=== PATIENT | male | born 1980 | race Hispanic/Latino ===

== ENCOUNTER 2021-10-20 09:45 | Emergency (ER) | payer SELFPAY ==
[2021-10-20] MEDS ORDERED: oxyCODONE /ACETAMINOPHEN 5-325MG TAB PO ONE (10:03)
--- NOTE | 2021-10-20 10:04 | Emergency Department Report ---
ED General Adult HPI - General Chief complaint: Skin/Abscess/Foreign Body Stated complaint: PT HAS PAINFUL RASH ON HANDS AND FEET PUI?: No Time Seen by Provider: 10/20/21 10:02 Source: patient, RN notes reviewed Mode of arrival: Ambulatory Limitations: No Limitations - History of Present Illness Initial comments: The patient was evaluated in the emergency department for symptoms described in the history of present illness. He/she was evaluated in the context of the global COVID-19 pandemic, which necessitated consideration that the patient might be at risk for infection with the virus that causes COVID-19. Institutional protocols and algorithms that pertain to the evaluation of patients at risk for COVID-19 are in a state of rapid change based on information released by regulatory bodies including the CDC and federal and state organizations. These policies and algorithms were followed during the patient's care in the emergency department. Please note that these policies, procedures and recommendations changed on a rapid basis. The patient is a 41-year-old gentleman, who reports that he is up-to-date with his tetanus vaccination status, who presents to the ER today with subacute painful lesions on his fingertips and toes. He reports that he was exposed to the extreme cold in mid August, secondary to being homeless. He presents to the ER today with a primary complaint of some pain, and discoloration to his fingertips, and toes. Denies headache, neck pain, chest pain, abdominal pain, shortness of breath, nausea, vomiting diarrhea, fevers and chills. He endorses some discomfort on his left fifth toe, right fourth toe, bilateral thumbs and fingertips. He felt improved with pain medication here in the emergency room. -: Gradual, week(s), month(s) Location: left, right, upper extremity, lower extremity Radiation: non-radiation Quality: aching Consistency: constant Improves with: medication Worsens with: movement Associated Symptoms: denies other symptoms - Related Data Previous Rx's Medication Instructions Recorded Last Taken Type Acetaminophen [Non-Aspirin Extra 500 mg PO Q6HR PRN #30 tablet 10/20/21 Unknown Rx Strength] Ferrous Sulfate [Ferrous Sulfate 324 mg PO BID #60 tab 10/20/21 Unknown Rx 324 MG] Ibuprofen [Motrin] 600 mg PO Q8H PRN #30 tablet 10/20/21 Unknown Rx Morphine Sulfate [Morphine Sulfate 7.5 mg PO Q6HR PRN #10 tablet 10/20/21 Unknown Rx IR] Allergies Allergy/AdvReac Type Severity Reaction Status Date / Time No Known Allergies Allergy Verified 10/20/21 09:57 ED Review of Systems ROS: Stated complaint: PT HAS PAINFUL RASH ON HANDS AND FEET Other details as noted in HPI Comment: All other systems reviewed and negative Musculoskeletal: arthralgia, myalgia Skin: lesions, change in color ED Past Medical Hx - Past Medical History Previous Medical History?: No - Surgical History Past Surgical History?: No - Medications Home Medications: Home Medications Medication Instructions Recorded Confirmed Last Taken Type Acetaminophen [Non-Aspirin Extra 500 mg PO Q6HR PRN #30 tablet 10/20/21 Unknown Rx Strength] Ferrous Sulfate [Ferrous Sulfate 324 mg PO BID #60 tab 10/20/21 Unknown Rx 324 MG] Ibuprofen [Motrin] 600 mg PO Q8H PRN #30 tablet 10/20/21 Unknown Rx Morphine Sulfate [Morphine Sulfate 7.5 mg PO Q6HR PRN #10 tablet 10/20/21 Unknown Rx IR] ED Physical Exam - General Limitations: No Limitations General appearance: alert, in no apparent distress - Head Head exam: Present: atraumatic, normocephalic - Eye Eye exam: Present: normal appearance, EOMI. Absent: nystagmus - ENT ENT exam: Present: normal exam, normal orophraynx, mucous membranes moist, normal external ear exam - Neck Neck exam: Present: normal inspection, full ROM. Absent: tenderness, meningismus - Respiratory Respiratory exam: Present: normal lung sounds bilaterally. Absent: respiratory distress, wheezes, rales, rhonchi, stridor, decreased breath sounds - Cardiovascular Cardiovascular Exam: Present: regular rate, normal rhythm, normal heart sounds. Absent: bradycardia, tachycardia, irregular rhythm, systolic murmur, diastolic murmur, rubs, gallop - GI/Abdominal GI/Abdominal exam: Present: soft. Absent: distended, tenderness, guarding, rebound, rigid, pulsatile mass - Rectal Rectal exam: Present: deferred - Extremities Exam Extremities exam: Present: full ROM, other (2+ pulses noted in the bilateral upper and lower extremities. There is no palpable cord. negative Homans sign. Muscular compartments are soft. The pelvis is stable.). Absent: normal inspection (There is dry gangrene on the right fourth toe. There is dry gangrene on the left fifth toe. There is reactive hyperemia on the right fourth toe. Capillary refill 2 to 3 seconds bilateral upper and lower extremities.), pedal edema, calf tenderness - Back Exam Back exam: Present: normal inspection. Absent: tenderness, CVA tenderness (R), CVA tenderness (L), paraspinal tenderness, vertebral tenderness - Neurological Exam Neurological exam: Present: alert, oriented X3, other (No facial droop. Tongue midline. Extraocular movements intact bilaterally. Facial sensation intact to light touch in V1, V2, V3 distribution bilaterally. 5 and a 5 strength in 4 extremities. Sensation intact to light touch in 4 extremities.). Absent: motor sensory deficit - Psychiatric Psychiatric exam: Present: normal affect, normal mood - Skin Skin exam: Present: warm, other (There is dry gangrene noted to the right great toe, and left fifth toe. Chronic appearing wounds noted to the upper extremity tips.) ED Course Vital Signs 10/20/21 10:01 Temperature 98.0 F Pulse Rate 94 H Respiratory 20 Rate Blood Pressure 147/98 O2 Sat by Pulse 100 Oximetry ED Medical Decision Making - Lab Data Result diagrams: 10/20/21 10:57 10/20/21 10:53 Vital Signs 10/20/21 10:01 Temperature 98.0 F Pulse Rate 94 H Respiratory 20 Rate Blood Pressure 147/98 O2 Sat by Pulse 100 Oximetry Lab Results 10/20/21 10/20/21 Range/Units 10:53 10:57 WBC 7.1 (4.5-11.0) K/mm3 RBC 3.80 (3.65-5.03) M/mm3 Hgb 9.2 L (11.8-15.2) gm/dl Hct 28.4 L (35.5-45.6) % MCV 75 L (84-94) fl MCH 24 L (28-32) pg MCHC 33 (32-34) % RDW 19.4 H (13.2-15.2) % Plt Count 444 H (140-440) K/mm3 Andrews % (Auto) Firepot Operator And Tender Add Manual Diff Complete Total Counted 100 Seg Neuts % (Manual) 69.0 (40.0-70.0) % Band Neutrophils % 1.0 % Lymphocytes % (Manual) 12.0 L (13.4-35.0) % Reactive Lymphs % (Man) 0 % Monocytes % (Manual) 16.0 H (0.0-7.3) % Eosinophils % (Manual) 1.0 (0.0-4.3) % Basophils % (Manual) 1.0 (0.0-1.8) % Metamyelocytes % 0 % Myelocytes % 0 % Promyelocytes % 0 % Blast Cells % 0 % Nucleated RBC % Not Reportable Seg Neutrophils # Man 4.9 (1.8-7.7) K/mm3 Band Neutrophils # 0.1 K/mm3 Lymphocytes # (Manual) 0.9 L (1.2-5.4) K/mm3 Abs React Lymphs (Man) 0.0 K/mm3 Monocytes # (Manual) 1.1 H (0.0-0.8) K/mm3 Eosinophils # (Manual) 0.1 (0.0-0.4) K/mm3 Basophils # (Manual) 0.1 (0.0-0.1) K/mm3 Metamyelocytes # 0.0 K/mm3 Myelocytes # 0.0 K/mm3 Promyelocytes # 0.0 K/mm3 Blast Cells # 0.0 K/mm3 WBC Morphology Not Reportable Hypersegmented Neuts Not Reportable Hyposegmented Neuts Not Reportable Hypogranular Neuts Not Reportable Smudge Cells Not Reportable Toxic Granulation Not Reportable Toxic Vacuolation Not Reportable Dohle Bodies Not Reportable Pelger-Huet Anomaly Not Reportable Anna Rods Not Reportable Platelet Estimate Consistent w auto Clumped Platelets Not Reportable Plt Clumps, EDTA Not Reportable Large Platelets Not Reportable Giant Platelets Not Reportable Platelet Satelliting Not Reportable Plt Morphology Comment Not Reportable RBC Morphology Not Reportable Dimorphic RBCs Not Reportable Polychromasia Not Reportable Hypochromasia 2+ Poikilocytosis Not Reportable Anisocytosis 1+ Microcytosis Not Reportable Macrocytosis Not Reportable Spherocytes Not Reportable Pappenheimer Bodies Not Reportable Sickle Cells Not Reportable Target Cells Not Reportable Tear Drop Cells Not Reportable Ovalocytes Not Reportable Helmet Cells Not Reportable [place] Bodies Not Reportable Wilmer Rings Not Reportable Girard Cells Not Reportable Bite Cells Not Reportable Crenated Cell Not Reportable Elliptocytes Not Reportable Acanthocytes (Spur) Not Reportable Rouleaux Not Reportable Hemoglobin C Crystals Not Reportable Schistocytes Not Reportable Malaria parasites Not Reportable ESR 39 (0-20) mm/Hr Navneet Bodies Not Reportable Hem Pathologist Commnt No Sodium 139 (137-145) mmol/L Potassium 4.5 (3.6-5.0) mmol/L Chloride 100.7 (98-107) mmol/L Carbon Dioxide 25 (22-30) mmol/L Anion Gap 18 mmol/L BUN 15 (9-20) mg/dL Creatinine 0.7 L (0.8-1.3) mg/dL Estimated GFR > 60 ml/min BUN/Creatinine Ratio 21 % Glucose 155 H (75-100) mg/dL Calcium 9.0 (8.4-10.2) mg/dL Total Creatine Kinase 101 (55-170) units/L C-Reactive Protein 0.10 (0.00-1.30) mg/dL - Radiology Data Radiology results: pending, report reviewed, image reviewed BILATERAL FEET 2 VIEWS INDICATION: toe pain from chacon related injury. COMPARISON: None. IMPRESSION: No osseous abnormality or joint pathology is appreciated. The soft tissues are unremarkable. BILATERAL HANDS 3 VIEWS INDICATION: Bilateral finger pain from prostate exposure. COMPARISON: None. 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 The chronicity of these findings is unclear but is thought to be chronic. No definite acute osseous findings are appreciated. No erosive joint pathology. Soft tissue swelling of the distal fingers with possible mild blister formation is suggested. Please correlate with the patient. Signer Name: Williams Mars Jr, MD Signed: 10/20/2021 10:28 AM Workstation Name: [id number] - Medical Decision Making Differential diagnosis, including but not limited to: Dry gangrene, subacute/chronic frostbite injury Assessment and plan: 41-year-old gentleman, presenting with crush related injury, exposure in August, and it is currently October. He has brisk robust pulses in his upper and lower extremities, dry gangrene without evidence of superinfection at this time. At the moment, he is eating a sandwich on his stretcher, and he does not appear to be in any acute distress. Laboratory studies are reviewed and appreciated, they are nonactionable, with the exception of asymptomatic microcytic anemia Patient denies hematemesis and bright red blood per rectum. I contacted our general surgeon on-call, Dr. Cole. I discussed the patient's history, physical and clinical impression. She advises that she does not perform amputations, and advises consultation with Dr. Canela, who is our wound care surgeon/specialist who deals with this particular kind of scenario. Contacted Dr. Canela, and I discussed the patient's history, physical, laboratory studies and imaging studies and clinical impression. These are wounds that are almost 2 months old. They do not appear to be superinfected, and there is dry gangrene, without a wet gangrene components. The patient is furthermore up-to-date with tetanus vaccination. Dr. Canela advises that this patient may follow-up in the wound care clinic with him on Wednesday, which I think is reasonable. Antibiotics are also not recommended at this time, which I think is reasonable, if the patient does not appear to have evidence of superinfection. The patient is currently eating food on his stretcher, he does not appear to be in any acute distress. He will be discharged with as needed pain medication, Betadine, instructions to closely follow-up with outpatient wound care/Dr. Canela. Return precautions reviewed. Start iron sulfate for microcytic anemia Critical care attestation.: If time is entered above; I have spent that time in minutes in the direct care of this critically ill patient, excluding procedure time. ED Disposition Clinical Impression: Hx of frostbite, Finger pain, Toe pain, Wound of foot, Microcytic anemia Disposition: HOME / SELF CARE / HOMELESS Is pt being admited?: No Does the pt Need Aspirin: No Condition: Good Instructions: Preventing Iron Deficiency Anemia, Adult, Frostbite, [id number], Gangrene Additional Instructions: Please take the pain medications as needed and directed. If taking morphine sulfate for pain, do not drive, consume alcohol, or make important decisions. Patient is found to have evidence of dry gangrene, likely secondary to environmental cold exposure from August. Recommend that patient follow-up with general surgeon Dr. Canela/wound care center within the next 48 to 72 hours. Name, phone number and address have been attached for the patient's convenience. Laboratory studies demonstrate microcytic anemia. Iron sulfate supplementation as directed, consume plenty of fiber, vegetables, lean protein, and follow-up with your primary care doctor, such as Dr Newman, or the [facility] within the next 3 to 4 weeks for repeat checkup and evaluation. Please return to the emergency room right away with new pain, worsened pain, migration of pain, projectile vomiting, change in mental status, confusion, inability tolerate liquid feeds, new, worsened or different symptoms not present on the initial emergency room evaluation Please have your primary care doctor or general surgeon contact the medical records department to obtain copies of laboratory studies and radiology studies, to follow-up on nonemergent incidental abnormal findings. Referrals: JT CANELA MD [Staff Physician] - 3-5 Days GERRY JACOBS [Staff Physician] - 3-5 Days [facility] [Outside] - 3-5 Days [facility] [Provider Group] - 3-5 Days
[2021-10-20 11:11] LABS: Hematocrit 28.4 % (35.5-45.6); Hemoglobin 9.2 gm/dl (11.8-15.2); Mean Corpuscular HGB Conc 33 % (32-34); Mean Corpuscular Volume 75 fl (84-94); Platelet Count 444 K/mm3 (140-440); Red Cell Distribution Width 19.4 % (13.2-15.2)
[2021-10-20 11:32] LABS: Blood Urea Nitrogen 15 mg/dL (9-20); Hemolysis Index 4
[2021-10-20 11:32] LABS: Erythrocyte Sedimentation Rate 39 mm/Hr (0-20)
--- NOTE | 2021-10-20 11:32 | XRay Report ---
BILATERAL FEET 2 VIEWS INDICATION: toe pain from chacon related injury. COMPARISON: None. IMPRESSION: No osseous abnormality or joint pathology is appreciated. The soft tissues are unremark able. BILATERAL HANDS 3 VIEWS INDICATION: Bilateral finger pain from prostate exposure. COMPARISON: None. 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 The chronicity of these findings is unclear but is th ought to be chronic. No definite acute osseous findings are appreciated. No erosive joint pathology. Soft tissue swelling of the distal fingers with possible mild blister formation is suggested. Please correlate with the patient. Signer Name: Williams Mars Jr, MD Signed: 10/20/2021 11:28 AM Workstation Name: [id number]
[2021-10-20 11:33] LABS: BUN/Creatinine Ratio 21
[2021-10-20 11:53] LABS: Band Neutrophils # (Manual) 0.1 K/mm3; Total Cells Counted 100
[2021-10-20 11:57] LABS: Anisocytosis 1+; Hypochromasia 2+; Platelet Estimate Consistent w Auto
[2021-10-20 12:56] VITALS: BP 167/103
== END 2021-10-20 12:59 | disposition home or self-care (01) ==
LOC: ED 09:45
DX: M79.646 Pain in unspecified finger(s) (principal); M79.676 Pain in unspecified toe(s); D50.9 Iron deficiency anemia, unspecified; S91.309A Unspecified open wound, unspecified foot, initial encounter; X58.XXXA Exposure to other specified factors, initial encounter; Y93.89 Activity, other specified; Y92.89 Other specified places as the place of occurrence of the external cause; Y99.8 Other external cause status
CPT/HCPCS: 36415; 80048; 82550; 85007; 85025; 85652; 86140; 99283

== ENCOUNTER 2021-10-30 09:31 | Emergency (ER) | payer SELFPAY ==
[2021-10-30] MEDS ORDERED: MORPHINE 4 MG/1 ML INJ IM ONE (13:23)
[2021-10-30] MEDS ORDERED: ACETAMINOPHEN 500 MG TAB PO ONE (13:25)
--- NOTE | 2021-10-30 13:25 | Emergency Department Report ---
ED General Adult HPI - General Chief complaint: Extremity Problem,Nontraumatic Stated complaint: JERONIMO BITE BOTH FEET PUI?: No Time Seen by Provider: 10/30/21 13:17 Source: patient, RN notes reviewed, old records reviewed Mode of arrival: Ambulatory Limitations: No Limitations - History of Present Illness Initial comments: The patient was evaluated in the emergency department for symptoms described in the history of present illness. He/she was evaluated in the context of the global COVID-19 pandemic, which necessitated consideration that the patient might be at risk for infection with the virus that causes COVID-19. Inst itutional protocols and algorithms that pertain to the evaluation of patients at risk for COVID-19 are in a state of rapid change based on information released by regulatory bodies including the CDC and federal and state organizations. These policies and algorithms were followed during the patient's care in the emergency department. Please note that these policies, procedures and recommendations changed on a rapid basis. The patient is a 41-year-old gentleman. I am from a with this patient. I evaluated this patient on October 20 for frostbite related injury. At that time, the patient was discharged from the emergency room, with instructions to follow-up with an outpatient learning operations specialist. The patient reports that he attempted to follow-up with the cheese specialist, but reports that the office had a $500 fee, which he could not afford. He does presents to the ER today with a complaint of persistent pain to his right fourth great little toe, as well as left fifth little toe. He denies fevers and chills. He denies additional injuries. 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 His pain improves with rest, and with taking Percocet/oxycodone. He was not able to obtain the morphine sulfate prescription that I prescribed for him -: Gradual, week(s) Location: left, right, upper extremity, lower extremity Severity scale (0 -10): 5 Quality: aching Consistency: constant Improves with: rest Worsens with: movement - Related Data Previous Rx's Medication Instructions Recorded Last Taken Type Acetaminophen [Non-Aspirin Extra 500 mg PO Q6HR PRN #30 tablet 10/20/21 Unknown Rx Strength] Ferrous Sulfate [Ferrous Sulfate 324 mg PO BID #60 tab 10/20/21 Unknown Rx 324 MG] Ibuprofen [Motrin] 600 mg PO Q8H PRN #30 tablet 10/20/21 Unknown Rx HYDROcodone/APAP 5-325 [[place] 1 each PO Q6HR PRN #15 tablet 10/22/21 Unknown Rx 5/325] Amoxicillin/Potassium Clav 1 each PO BID #20 tab 10/30/21 Unknown Rx [Augmentin 875-125 Tablet] oxyCODONE /ACETAMINOPHEN [Percocet 1 tab PO Q6HR PRN #10 tablet 10/30/21 Unknown Rx 5/325] Allergies Allergy/AdvReac Type Severity Reaction Status Date / Time No Known Allergies Allergy Verified 10/20/21 09:57 ED Review of Systems ROS: Stated complaint: JERONIMO BITE BOTH FEET Other details as noted in HPI Constitutional: denies: fever Eyes: denies: eye discharge ENT: denies: epistaxis Respiratory: denies: cough Cardiovascular: denies: chest pain Gastrointestinal: denies: abdominal pain Musculoskeletal: joint swelling, arthralgia, myalgia Skin: lesions, change in color ED Past Medical Hx - Medications Home Medications: Home Medications Medication Instructions Recorded Confirmed Last Taken Type Acetaminophen [Non-Aspirin Extra 500 mg PO Q6HR PRN #30 tablet 10/20/21 Unknown Rx Strength] Ferrous Sulfate [Ferrous Sulfate 324 mg PO BID #60 tab 10/20/21 Unknown Rx 324 MG] Ibuprofen [Motrin] 600 mg PO Q8H PRN #30 tablet 10/20/21 Unknown Rx HYDROcodone/APAP 5-325 [[place] 1 each PO Q6HR PRN #15 tablet 10/22/21 Unknown Rx 5/325] Amoxicillin/Potassium Clav 1 each PO BID #20 tab 10/30/21 Unknown Rx [Augmentin 875-125 Tablet] oxyCODONE /ACETAMINOPHEN [Percocet 1 tab PO Q6HR PRN #10 tablet 10/30/21 Unknown Rx 5/325] ED Physical Exam - General Limitations: No Limitations General appearance: alert, in no apparent distress - Head Head exam: Present: atraumatic, normocephalic - Eye Eye exam: Present: normal appearance, EOMI. Absent: nystagmus - ENT ENT exam: Present: normal exam, normal orophraynx, mucous membranes moist, normal external ear exam - Neck Neck exam: Present: normal inspection, full ROM. Absent: tenderness, meningismus - Respiratory Respiratory exam: Present: normal lung sounds bilaterally. Absent: respiratory distress, wheezes, rales, rhonchi, stridor, decreased breath sounds - Cardiovascular Cardiovascular Exam: Present: regular rate, normal rhythm, normal heart sounds. Absent: bradycardia, tachycardia, irregular rhythm, systolic murmur, diastolic murmur, rubs, gallop - GI/Abdominal GI/Abdominal exam: Present: soft. Absent: distended, tenderness, guarding, rebound, rigid, pulsatile mass - Rectal Rectal exam: Present: deferred - Extremities Exam Extremities exam: Present: full ROM, other (2+ pulses noted in the bilateral upper and lower extremities. There is no palpable cord. negative Homans sign. Muscular compartments are soft. The pelvis is stable.). Absent: normal inspe ction (Chronic appearing wounds noted at the distal tips of the upper extremities. These appear to be unchanged from prior.), tenderness (The right fourth toe is tender, with dry gangrene, and some superficial circumferential swelling. There is no crepitus appreciated. The left fifth toe is minimally swollen, with distal dry gangrene), pedal edema, calf tenderness - Back Exam Back exam: Present: normal inspection, full ROM. Absent: tenderness, CVA tenderness (R), CVA tenderness (L), paraspinal tenderness, vertebral tenderness - Neurological Exam Neurological exam: Present: alert, oriented X3, normal gait, other (No facial droop. Tongue midline. Extraocular movements intact bilaterally. Facial sensation intact to light touch in V1, V2, V3 distribution bilaterally. 5 and a 5 strength in 4 extremities. Sensation intact to light touch in 4 extremities.). Absent: motor sensory deficit - Psychiatric Psychiatric exam: Present: anxious - Skin Skin exam: Present: warm ED Course Vital Signs 10/30/21 10/30/21 10/30/21 09:49 09:54 16:42 Temperature 98.6 F 99.5 F 98.1 F Pulse Rate 104 H 80 85 Respiratory 16 18 16 Rate Blood Pressure 132/77 184/127 Blood Pressure 167/117 [Left] O2 Sat by Pulse 97 100 100 Oximetry ED Medical Decision Making - Lab Data Result diagrams: 10/30/21 13:28 10/30/21 13:28 Vital Signs 10/30/21 09:49 Temperature 98.6 F Pulse Rate 104 H Respiratory 16 Rate Blood Pressure 167/117 [Left] O2 Sat by Pulse 97 Oximetry Lab Results 10/30/21 10/30/21 10/30/21 Range/Units 13:28 13:28 13:28 WBC 6.7 (4.5-11.0) K/mm3 RBC 4.32 (3.65-5.03) M/mm3 Hgb 10.1 L (11.8-15.2) gm/dl Hct 32.2 L (35.5-45.6) % MCV 75 L (84-94) fl MCH 23 L (28-32) pg MCHC 31 L (32-34) % RDW 20.2 H (13.2-15.2) % Plt Count 383 (140-440) K/mm3 [place] % (Auto) Senior Clinical Consultant Add Manual Diff Complete Total Counted 100 Seg Neuts % (Manual) 64.0 (40.0-70.0) % Band Neutrophils % 0 % Lymphocytes % (Manual) 16 (13.4-35.0) % Reactive Lymphs % (Man) 0 % Monocytes % (Manual) 19.0 H (0.0-7.3) % Eosinophils % (Manual) 1.0 (0.0-4.3) % Basophils % (Manual) 0 (0.0-1.8) % Metamyelocytes % 0 % Myelocytes % 0 % Promyelocytes % 0 % Blast Cells % 0 % Nucleated RBC % Not Reportable Seg Neutrophils # Man 4.3 (1.8-7.7) K/mm3 Band Neutrophils # 0.0 K/mm3 Lymphocytes # (Manual) 1.0 L (1.2-5.4) K/mm3 Abs React Lymphs (Man) 0.0 K/mm3 Monocytes # (Manual) 1.3 H (0.0-0.8) K/mm3 Eosinophils # (Manual) 0.1 (0.0-0.4) K/mm3 Basophils # (Manual) 0.0 (0.0-0.1) K/mm3 Metamyelocytes # 0.0 K/mm3 Myelocytes # 0.0 K/mm3 Promyelocytes # 0.0 K/mm3 Blast Cells # 0.0 K/mm3 WBC Morphology Not Reportable Hypersegmented Neuts Not Reportable Hyposegmented Neuts Not Reportable Hypogranular Neuts Not Reportable Smudge Cells Not Reportable Toxic Granulation Not Reportable Toxic Vacuolation Not Reportable Dohle Bodies Not Reportable Pelger-Huet Anomaly Not Reportable Anna Rods Not Reportable Platelet Estimate Consistent w auto Clumped Platelets Not Reportable Plt Clumps, EDTA Not Reportable Large Platelets Not Reportable Giant Platelets Not Reportable Platelet Satelliting Not Reportable Plt Morphology Comment Not Reportable RBC Morphology Not Reportable Dimorphic RBCs Not Reportable Polychromasia Not Reportable Hypochromasia 1+ Poikilocytosis Not Reportable Anisocytosis 1+ Microcytosis Not Reportable Macrocytosis Not Reportable Spherocytes Not Reportable Pappenheimer Bodies Not Reportable Sickle Cells Not Reportable Target Cells Not Reportable Tear Drop Cells Not Reportable Ovalocytes Not Reportable Helmet Cells Not Reportable Corrigan-[place] Bodies Not Reportable [place] Rings Not Reportable [place] Cells Not Reportable Bite Cells Not Reportable Crenated Cell Not Reportable Elliptocytes Not Reportable Acanthocytes (Spur) Not Reportable Rouleaux Not Reportable Hemoglobin C Crystals Not Reportable Schistocytes Not Reportable Malaria parasites Not Reportable ESR 58 (0-20) mm/Hr Navneet Bodies Not Reportable Hem Pathologist Commnt No Sodium 140 (137-145) mmol/L Potassium 4.2 (3.6-5.0) mmol/L Chloride 102.2 (98-107) mmol/L Carbon Dioxide 26 (22-30) mmol/L Anion Gap 16 mmol/L BUN 19 (9-20) mg/dL Creatinine 0.7 L (0.8-1.3) mg/dL Estimated GFR > 60 ml/min BUN/Creatinine Ratio 27 % Glucose 130 H (75-100) mg/dL Lactic Acid 0.90 (0.7-2.0) mmol/L Calcium 9.3 (8.4-10.2) mg/dL Total Creatine Kinase 118 (55-170) units/L C-Reactive Protein 0.10 (0.00-1.30) mg/dL - Radiology Data Radiology results: report reviewed, image reviewed [facility] [address] [place] [address] XRay Report Signed with [place] Patient: BOUBACAR APARICIO MR#: [id number] : 1980 Acct:[id number] Age/Sex: 41 / M ADM Date: 10/30/21 Loc: ED Attending Dr: Ordering Physician: BOUBACAR PEÑA MD Date of Service: 10/30/21 Procedure(s): XR toe(s) BILAT Accession Number(s): [id number] cc: BOUBACAR PEÑA MD Fluoro Time In Minutes: ADDENDUM Comparison is made with study dated 10/20/2021. Similar findings were likely present on the previous exam, but are better seen on today's study. Signer Name: Antelmo Oakley MD Signed: 10/30/2021 2:41 PM Workstation Name: [id number] Addendum Transcribed By: ES Addendum Dictated By: Antelmo Oakley MD Addendum Electronically Authenticated By: Antelmo Oakley MD Addendum Signed Date/Time: 10/30/21 1441 DD/ TD/TT: / LEFT FOOT 3 VIEWS INDICATION / CLINICAL INFORMATION: right 4th toe, left 5th toe frostbite wound COMPARISON: None available. FINDINGS: BONES / JOINT(S): Irregularity involving the distal phalanx of the fifth digit with mild lucency. No significant arthritis. SOFT TISSUES: Overlying soft tissue swelling. ADDITIONAL FINDINGS: None. RIGHT FOOT 3 VIEWS INDICATION / CLINICAL INFORMATION: right 4th toe, left 5th toe frostbite wound COMPARISON: None available. FINDINGS: BONES / JOINT(S): No acute fracture or subluxation. Mild developing lucency at the distal aspect of the distal phalanx of the fourth digit. SOFT TISSUES: Soft tissue irregularity overlying the fourth digit distally. ADDITIONAL FINDINGS: None. Signer Name: Antelmo Oakley MD Signed: 10/30/2021 2:34 PM Workstation Name: [id number] Transcribed By: ES Dictated By: Antelmo Oakley MD Electronically Authenticated By: Antelmo Oakley MD Signed Date/Time: 10/30/21 1434 DD/ 1413 TD/TT: -- [Addendum Report Added by ANTELMO AOKLEY at 2021-10-30 14:47:01] [facility] [address] [place] [address] XRay Report Signed Patient: BOUBACAR APARICIO MR#: [id number] : 1980 Acct :[id number] Age/Sex: 41 / M ADM Date: 10/30/21 Loc: ED Attending Dr: Ordering Physician: BOUBACAR PEÑA MD Date of Service: 10/30/21 Procedure(s): XR toe(s) BILAT Accession Number(s): [id number] cc: BOUBACAR PEÑA MD Fluoro Time In Minutes: LEFT FOOT 3 VIEWS INDICATION / CLINICAL INFORMATION: right 4th toe, left 5th toe frostbite wound COMPARISON: None available. FINDINGS: BONES / JOINT(S): Irregularity involving the distal phalanx of the fifth digit with mild lucency. No significant arthritis. SOFT TISSUES: Overlying soft tissue swelling. ADDITIONAL FINDINGS: None. RIGHT FOOT 3 VIEWS INDICATION / CLINICAL INFORMATION: right 4th toe, left 5th toe frostbite wound COMPARISON: None available. FINDINGS: BONES / JOINT(S): No acute fracture or subluxation. Mild developing lucency at the distal aspect of the distal phalanx of the fourth digit. SOFT TISSUES: Soft tissue irregularity overlying the fourth digit distally. ADDITIONAL FINDINGS: None. Signer Name: Antelmo Oakley MD Signed: 10/30/2021 2:34 PM Workstation Name: [id number] Transcribed By: ES Dictated By: Antelmo Oakley MD Electronically Authenticated By: Antelmo Oakley MD Signed Date/Time: 10/30/21 143 DD/ 1413 - Medical Decision Making Differential diagnosis, including but not limited to: Frostbite, infected wound, chronic anemia Assessment and plan: 41-year-old gentleman, who was afebrile, with reassuring vital signs, resolved tachycardia at this time, whom I have evaluated in the past. He states he was able to follow-up with an outpatient wound clinic that I referred him to 10 days ago, he was concerned about the $500 copayment which she articulates to myself, but he is still attempting to obtain follow-up. His upper extremities appear to be unchanged compared to my prior examination. 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 The right fourth toe and left fifth toe are notably tender and swollen, however he is not febrile, he does not have a leukocytosis, he does not appear to be systemically ill. He does not have evidence of wet gangrene at this time, although there may be a superimposed component of infectious process. I did speak to the general surgeon who specializes in amputations, Dr. Canela. He reports that he will be out of town until Wednesday, but did report that should we deem it necessary, he would be able to see this patient in consultation. I discussed this with the patient. I offered the patient admission. The patient states that he prefers to not be admitted, and follow-up/return on Wednesday. I will also start him on oral antibiotics empirically. We discussed risk, benefits alternatives of admission versus discharge with oral antibiotics and close follow-up. The patient is able to articulate these risks benefits alternatives in his own words, and is of sound mind, and exhibits decision-making capacity. Through shared decision-making, we agreed to discharge the patient with the aforementioned instructions. Therefore, start this patient on Augmentin, he will also be given a good Rx affordable prescription card, I will also give him a Percocet prescription as he was not able to fill the morphine sulfate prescription. Patient is observed in this department for hours without clinical decompensation. Return precautions are reviewed. Critical care attestation.: If time is entered above; I have spent that time in minutes in the direct care of this critically ill patient, excluding procedure time. ED Disposition Clinical Impression: Hx of frostbite, Wound of foot, Microcytic anemia Toe pain Qualifiers: Laterality: right Qualified Code(s): M79.674 - Pain in right toe(s) Disposition: HOME / SELF CARE / HOMELESS Is pt being admited?: No Does the pt Need Aspirin: No Condition: Good Additional Instructions: When taking the Percocet for pain, do not drive, consume alcohol, make important decisions. Please exercise caution when consuming narcotics/opioids, these medications can be habit-forming and addictive. Use the [employer] affordable prescription card to assist in acquisition of affordable prescriptions please take the pain medication as needed and directed. Take the antibiotics as needed. Follow-up this Wednesday with a general surgeon in his office, or return to this emergency room for evaluation. Please continue the previously prescribed medications that were dispatched to the patient on recent evaluations. Please return to the emergency room right away with new pain, worsened pain, migration of pain, projectile vomiting, change in mental status, confusion, inability tolerate liquid feeds, new, worsened or different symptoms not present on the initial emergency room evaluation Prescriptions: Amoxicillin/Potassium Clav [Augmentin 875-125 Tablet] 1 each PO BID #20 tab oxyCODONE /ACETAMINOPHEN [Percocet 5/325] 1 tab PO Q6HR PRN #10 tablet PRN Reason: Pain Referrals: JT CANELA MD [Staff Physician] - 11/03/21 4:32 pm [facility] [Outside] - 3-5 Days Forms: Work/School Release Form(ED)
[2021-10-30 13:55] LABS: Hematocrit 32.2 % (35.5-45.6); Hemoglobin 10.1 gm/dl (11.8-15.2); Mean Corpuscular HGB Conc 31 % (32-34); Mean Corpuscular Volume 75 fl (84-94); Platelet Count 383 K/mm3 (140-440); Red Blood Count 4.32 M/mm3 (3.65-5.03)
[2021-10-30 13:57] LABS: Red Cell Distribution Width 20.2 % (13.2-15.2)
[2021-10-30 14:15] LABS: Blood Urea Nitrogen 19 mg/dL (9-20); Calcium 9.3 mg/dL (8.4-10.2); Hemolysis Index 2
[2021-10-30 14:17] LABS: BUN/Creatinine Ratio 27
--- NOTE | 2021-10-30 14:38 | XRay Report ---
LEFT FOOT 3 VIEWS INDICATION / CLINICAL INFORMATION: right 4th toe, left 5th toe frostbite wound COMPARISON: None available. FINDINGS: BONES / JOINT(S): Irregularity involving the distal phalanx of the fifth digit with mild lucency. No significant arthritis. SOFT TISSUES: Overlying soft tissue swelling. ADDITIONAL FINDINGS: None. RIGHT FOOT 3 VIEWS INDICATION / CLINICAL INFORMATION: right 4th toe, left 5th toe frostbite wound COMPARISON: None available. FINDINGS: BONES / JOINT(S): No acute fracture or subluxation. Mild developing lucency at the distal aspect of t he distal phalanx of the fourth digit. SOFT TISSUES: Soft tissue irregularity overlying the fourth digit distally. ADDITIONAL FINDINGS: None. Signer Name: Antelmo Oakley MD Signed: 10/30/2021 2:34 PM Workstation Name: [id number]
[2021-10-30 15:07] LABS: Anisocytosis 1+; Basophils % (Manual) 0 % (0.0-1.8); Hypochromasia 1+; Platelet Estimate Consistent w Auto; Total Cells Counted 100
[2021-10-30 15:14] LABS: Erythrocyte Sedimentation Rate 58 mm/Hr (0-20)
[2021-10-30] MEDS ORDERED: KETOROLAC 30 MG/1 ML INJ IM ONE (15:28)
[2021-10-30 16:45] VITALS: BP 184/127
== END 2021-10-30 16:45 | disposition home or self-care (01) ==
LOC: ED 09:31
DX: S91.302A Unspecified open wound, left foot, initial encounter (principal); S91.301A Unspecified open wound, right foot, initial encounter; D50.9 Iron deficiency anemia, unspecified; M79.674 Pain in right toe(s); X58.XXXA Exposure to other specified factors, initial encounter; Y93.89 Activity, other specified; Y92.89 Other specified places as the place of occurrence of the external cause; Y99.8 Other external cause status
CPT/HCPCS: 36415; 73660; 80048; 82140; 82550; 85007; 85025; 85652; 86140; 96372; 99283; J1885; J2270

== ENCOUNTER 2021-10-31 11:03 | Inpatient (IN) | payer SELFPAY ==
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
[2021-10-31] MEDS ORDERED: oxyCODONE /ACETAMINOPHEN 5-325MG TAB PO ONE (12:28)
[2021-10-31] MEDS ORDERED: PIPERACIL/TAZOBACTA 4.5/NS 100 4.5 GM/100 ML VIAL IV ONE (12:32)
[2021-10-31] MEDS ORDERED: metroNIDAZOLE/NS 500 MG/100 ML 500 MG/100 ML BAG IV ONE (12:32)
--- NOTE | 2021-10-31 12:36 | History and Physical Report ---
History of Present Illness Chief complaint: My foot hurts History of present illness: 41 YO Male with no PMH presents ED for evaluation. Patient reports my foot hurts". Patient states that he has experienced pain, redness, swelling from his right toe over the past 5 days with persistent and worsening symptoms over the same timeframe. Patient transported to [facility] via private vehicle for further care and evaluation of the aforementioned symptoms. The patient was seen and evaluated in the emergency department. All lab and imaging studies reviewed. Patient found to have right fourth toe cellulitis with gangrene. Patient admitted to medical floor due to increased risk of worsening symptoms. Surgical team consulted in ED. Patient denies fever, chills, chest pain, palpitation, productive cough, skin rash, recent contact, known exposure to COVID-19. No prior admission for review. All medication listed at time of admission has been reconciled. Advanced care planning conducted in ED. Past History Past Medical History: No medical history, other (Reviewed) Past Surgical History: No surgical history, Other (Reviewed) Social history: single Family history: hypertension Medications and Allergies Allergies Allergy/AdvReac Type Severity Reaction Status Date / Time No Known Allergies Allergy Verified 10/20/21 09:57 Home Medications Medication Instructions Recorded Confirmed Last Taken Type Acetaminophen [Non-Aspirin Extra 500 mg PO Q6HR PRN #30 tablet 10/20/21 Unknown Rx Strength] Ferrous Sulfate [Ferrous Sulfate 324 mg PO BID #60 tab 10/20/21 Unknown Rx 324 MG] Ibuprofen [Motrin] 600 mg PO Q8H PRN #30 tablet 10/20/21 Unknown Rx HYDROcodone/APAP 5-325 [[place] 1 each PO Q6HR PRN #15 tablet 10/22/21 Unknown Rx 5/325] Amoxicillin/Potassium Clav 1 each PO BID #20 tab 10/30/21 Unknown Rx [Augmentin 875-125 Tablet] oxyCODONE /ACETAMINOPHEN [Percocet 1 tab PO Q6HR PRN #10 tablet 10/30/21 Unknown Rx 5/325] Active Meds: Active Medications Piperacillin Sod/Tazobactam Sod (Zosyn/Ns 4.5gm/100ml) 4.5 gm in 100 mls @ 200 mls/hr IV ONCE ONE; Protocol Stop: 10/31/21 13:01 Metronidazole (Flagyl 500 Mg/100 Ml) 500 mg in 100 mls @ 200 mls/hr IV ONCE ONE; Protocol Stop: 10/31/21 13:01 Review of Systems Constitutional: no weight loss, no weight gain, no fever, no sweats Ears, nose, mouth and throat: no ear pain, no ear discharge, no tinnitis, no nose pain Cardiovascular: no chest pain, no palpitations, no edema, no syncope Respiratory: no cough, no cough with sputum, no excessive sputum Gastrointestinal: no abdominal pain, no vomiting, no diarrhea, no change in bowel habits Genitourinary Male: no hematuria, no flank pain, no discharge, no urinary chana quency, no urinary hesitancy Rectal: no pain, no incontinence, no bleeding Musculoskeletal: no neck stiffness, no neck pain, no arm numbness/tingling, no low back pain Integumentary: no rash, no pruritis, no sores, no wounds, no jaundice Neurological: no head injury, no transient paralysis, no paralysis, no parathesias, no numbness, no seizures Psychiatric: no anxiety, no memory loss, no change in appetite, no change in libido, no disorientation Endocrine: no cold intolerance, no heat intolerance, no excessive thirst, no polyuria Hematologic/Lymphatic: no easy bruising, no easy bleeding, no lymphadenopathy Allergic/Immunologic: no urticaria, no allergic rhinitis, no wheezing, no persistent infections Exam - Constitutional Vitals: Temp Pulse Resp BP Pulse Ox 98.5 F 106 H 15 149/109 99 10/31/21 11:29 10/31/21 11:29 10/31/21 11:29 10/31/21 11:29 10/31/21 11:29 General appearance: Present: mild distress - EENT Eyes: Present: PERRL ENT: hearing intact, clear oral mucosa - Neck Neck: Present: supple, normal ROM - Respiratory Respiratory effort: normal Respiratory: bilateral: CTA - Cardiovascular Heart Sounds: Present: S1 & S2. Absent: rub, click - Extremities Extremities: pulses symmetrical Extremity abnormal: erythema, black, other (Right fourth toe) Peripheral Pulses: within normal limits - Abdominal General gastrointestinal: Present: soft, non-tender, non-distended, normal bowel sounds Male genitourinary: Present: normal - Integumentary Integumentary: Present: clear, warm, dry - Musculoskeletal Musculoskeletal: gait normal, strength equal bilaterally - Psychiatric Psychiatric: appropriate mood/affect, intact judgment & insight - Neurologic Neurologic: CNII-XII intact, moves all extremities Results - Labs CBC & Chem 7: 10/31/21 14:14 10/31/21 14:14 Assessment and Plan - Patient Problems (1) Gangrene Current Visit: Yes Status: Acute Plan to address problem: Surgery team consulted. Surgical invention as per surgical team, pain control, supportive care. (2) Wound of foot Current Visit: Yes Status: Acute Plan to address problem: Wound care consulted. (3) Homelessness Current Visit: Yes Status: Acute Plan to address problem: Case management consulted. (4) DVT prophylaxis Current Visit: Yes Status: Acute Plan to address problem: SCD to bilateral lower extremities while in bed (5) Advance care planning Current Visit: Yes Status: Acute Plan to address problem: Disease education done, care plan discussed, diagnosis discussed, prognosis discussed, patient is full code. Patient acknowledges understanding agree with care plan, +30 minutes.
[2021-10-31] MEDS ORDERED: MORPHINE 4 MG/1 ML INJ IV ONE (13:59)
[2021-10-31] MEDS ORDERED: ONDANSETRON 4 MG/2 ML INJ IV ONE (13:59)
[2021-10-31] MEDS ORDERED: ONDANSETRON 4 MG/2 ML INJ IV PRN (14:24)
[2021-10-31] MEDS ORDERED: ALBUTEROL 2.5 MG/3 ML NEBU IH PRN (14:24)
[2021-10-31] MEDS ORDERED: ACETAMINOPHEN 325 MG TAB PO PRN (14:24)
[2021-10-31 14:32] LABS: Basophils % (Auto) 0.7 % (0.0-1.8); Eosinophils # (Auto) 0.1 K/mm3 (0.0-0.4); Lymphocytes % (Auto) 16.1 % (13.4-35.0); Monocytes # (Auto) 0.9 K/mm3 (0.0-0.8); Monocytes % (Auto) 15.7 % (0.0-7.3)
[2021-10-31 14:41] LABS: Hematocrit 34.2 % (35.5-45.6); Hemoglobin 10.7 gm/dl (11.8-15.2); Mean Corpuscular HGB Conc 31 % (32-34); Mean Corpuscular Volume 74 fl (84-94); Platelet Count 347 K/mm3 (140-440); Red Cell Distribution Width 19.7 % (13.2-15.2)
[2021-10-31 14:53] LABS: Alanine Aminotransferase 43 units/L (7-56); Albumin 4.3 g/dL (3.9-5); Blood Urea Nitrogen 17 mg/dL (9-20); Calcium 9.3 mg/dL (8.4-10.2); Hemolysis Index 3
[2021-10-31 15:07] LABS: BUN/Creatinine Ratio 24
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
[2021-10-31] MEDS ORDERED: MORPHINE 4 MG/1 ML INJ ONE (20:06)
[2021-11-01] MEDS: HYDROmorphone 1 MG/1 ML INJ IV PRN ×4 (00:15→21:42)
--- NOTE | 2021-11-01 08:29 | Progress Note ---
Assessment and Plan Assessment and plan: #Right fourth toe infection -Continue vancomycin, clindamycin and Zosyn -Plan for possible toe amputation on Wednesday -General surgery following, assistance appreciated #Raynaud's syndrome -Patient follows with rheumatology outpatient -Multiple ulcerations on his hands -Restarted amlodipine at home dose #Hypertension -Restarted chlorthalidone at home dose Disposition Plan: continue medical management History Interval history: Patient reports reflux overnight. Pain in fourth toe improved. No other complaints at this time. Hospitalist Physical - Physical exam Narrative exam: GENERAL: Well-developed well-nourished. Sitting on the side of the bed in no acute distress. HEENT: Normocephalic. Atraumatic. CHEST/LUNGS: CTAB on room air HEART/CARDIOVASCULAR: RRR. No murmur, rubs or gallops appreciated. ABDOMEN: +BS. NT/ND. SKIN: Ulcerations noted on fingers. 4th necrotic toe NEURO: No focal motor deficit. Follows all commands and is ambulatory. MUSCULOSKELETAL: No joint effusion EXTREMITIES: No cyanosis, clubbing or edema. PSYCH: Cooperative. - Constitutional Vitals: Temp Pulse Resp BP Pulse Ox 97.6 F 97 H 16 153/101 94 11/01/21 02:19 11/01/21 02:19 11/01/21 02:19 11/01/21 02:19 11/01/21 02:19 General appearance: Present: mild distress Results - Labs CBC & Chem 7: 10/31/21 14:14 10/31/21 14:14 Labs: Laboratory Last Values WBC 5.9 K/mm3 (4.5-11.0) 10/31/21 14:14 RBC 4.60 M/mm3 (3.65-5.03) 10/31/21 14:14 Hgb 10.7 gm/dl (11.8-15.2) L 10/31/21 14:14 Hct 34.2 % (35.5-45.6) L 10/31/21 14:14 MCV 74 fl (84-94) L 10/31/21 14:14 MCH 23 pg (28-32) L 10/31/21 14:14 MCHC 31 % (32-34) L 10/31/21 14:14 RDW 19.7 % (13.2-15.2) H 10/31/21 14:14 Plt Count 347 K/mm3 (140-440) 10/31/21 14:14 Lymph % (Auto) 16.1 % (13.4-35.0) 10/31/21 14:14 [place] % (Auto) 15.7 % (0.0-7.3) H 10/31/21 14:14 Eos % (Auto) 2.0 % (0.0-4.3) 10/31/21 14:14 Baso % (Auto) 0.7 % (0.0-1.8) 10/31/21 14:14 Lymph # (Auto) 1.0 K/mm3 (1.2-5.4) L 10/31/21 14:14 [place] # (Auto) 0.9 K/mm3 (0.0-0.8) H 10/31/21 14:14 Eos # (Auto) 0.1 K/mm3 (0.0-0.4) 10/31/21 14:14 Baso # (Auto) 0.0 K/mm3 (0.0-0.1) 10/31/21 14:14 Seg Neutrophils % 65.5 % (40.0-70.0) 10/31/21 14:14 Seg Neutrophils # 3.9 K/mm3 (1.8-7.7) 10/31/21 14:14 Sodium 134 mmol/L (137-145) L 10/31/21 14:14 Potassium 3.9 mmol/L (3.6-5.0) 10/31/21 14:14 Chloride 98.0 mmol/L (98-107) 10/31/21 14:14 Carbon Dioxide 24 mmol/L (22-30) 10/31/21 14:14 Anion Gap 16 mmol/L 10/31/21 14:14 BUN 17 mg/dL (9-20) 10/31/21 14:14 Creatinine 0.7 mg/dL (0.8-1.3) L 10/31/21 14:14 Estimated GFR > 60 ml/min 10/31/21 14:14 BUN/Creatinine Ratio 24 % 10/31/21 14:14 Glucose 141 mg/dL (75-100) H 10/31/21 14:14 Lactic Acid 1.00 mmol/L (0.7-2.0) 10/31/21 14:14 Calcium 9.3 mg/dL (8.4-10.2) 10/31/21 14:14 Total Bilirubin < 0.20 mg/dL (0.1-1.2) 10/31/21 14:14 AST 32 units/L (5-40) 10/31/21 14:14 ALT 43 units/L (7-56) 10/31/21 14:14 Alkaline Phosphatase 108 units/L (35-129) 10/31/21 14:14 Total Protein 8.3 g/dL (6.3-8.2) H 10/31/21 14:14 Albumin 4.3 g/dL (3.9-5) 10/31/21 14:14 Albumin/Globulin Ratio 1.1 % 10/31/21 14:14 Microbiology: Microbiology 10/31/21 14:23 Peripheral/Venous Blood Culture - Preliminary Culture in Progress 10/31/21 14:14 Peripheral/Venous Blood Culture - Preliminary Culture in Progress Active Medications - Current Medications Current Medications: Generic Name Dose Route Start Last Admin Trade Name Freq PRN Reason Stop Dose Admin Acetaminophen 650 mg 10/31/21 14:24 Acetaminophen 325 Mg Tab PO Q4H PRN Pain MILD(1-3)/Fever >100.5/[place] Albuterol 2.5 mg 10/31/21 14:24 Albuterol 2.5 Mg/3 Ml Nebu IH Q4HRT PRN Shortness Of Breath Hydromorphone HCl 0.5 mg 10/31/21 14:24 11/01/21 05:58 Hydromorphone 1 Mg/1 Ml Inj IV 0.5 mg Q8H PRN Administration Pain , Severe (7-10) Ondansetron HCl 4 mg 10/31/21 14:24 11/01/21 05:58 Ondansetron 4 Mg/2 Ml Inj IV 4 mg Q8H PRN Administration Nausea And Vomiting Oxycodone/Acetaminophen 1 tab 10/31/21 14:24 Oxycodone /Acetaminophen 5-325mg Tab PO Q6H PRN Pain, Moderate (4-6) Sodium Chloride 10 ml 10/31/21 22:00 10/31/21 23:49 Sodium Chloride 0.9% 10 Ml Flush Syringe IV 10 ml BID MARY Administration Sodium Chloride 10 ml 10/31/21 14:24 Sodium Chloride 0.9% 10 Ml Flush Syringe IV PRN PRN LINE FLUSH
[2021-11-01] MEDS: oxyCODONE /ACETAMINOPHEN 5-325MG TAB PO PRN ×2 (09:16→17:21)
[2021-11-01] MEDS ORDERED: FAMOTIDINE 20 MG TAB PO SCH (14:00)
[2021-11-01] MEDS: amLODIPine 10 MG TAB PO SCH (14:21)
[2021-11-01] MEDS ORDERED: VANCOMYCIN PHARMACY TO DOSE IV SCH (15:00)
[2021-11-01] MEDS: CHLORTHALIDONE 25 MG TAB PO SCH (17:17)
[2021-11-01] MEDS: CLINDAMYCIN 600 MG/50 mL 600 MG/50 ML BAG IV SCH ×2 (17:22→23:30)
[2021-11-01] MEDS: PIPERACIL/TAZOBACTA 4.5/NS 100 4.5 GM/100 ML VIAL IV SCH ×2 (17:22→23:30)
[2021-11-01] MEDS: VANCOMYCIN 1,750 MG in SODIUM CHLORIDE 0.9% 500 ML 500 ML IV SCH (17:38)
--- NOTE | 2021-11-01 17:43 | Progress Note ---
Assessment and Plan Begin local wound care to the right fourth toe continue IV antibiotics. Stabilize patient. We will consider doing right toe amputation possibly on Wednesday. Continuing IV antibiotics will control his cellulitis and allow amputation with decreased risk for postop wound infection. Subjective Date of service: 11/01/21 Patient Reports: Positive: other Narrative: Patient with continued pain in the left fourth toe swelling is slightly better. Objective Vital Signs - 12hr 11/01/21 11/01/21 11/01/21 06:07 11:18 14:21 Temperature 98.0 F Pulse Rate 92 H Respiratory 20 Rate Blood Pressure 160/95 165/91 O2 Sat by Pulse 93 97 Oximetry - Labs 10/31/21 14:14 10/31/21 14:14
[2021-11-01] MEDS: FAMOTIDINE 20 MG TAB PO SCH (21:43)
[2021-11-02] MEDS: oxyCODONE /ACETAMINOPHEN 5-325MG TAB PO PRN ×3 (00:41→16:33)
[2021-11-02] MEDS: HYDROmorphone 1 MG/1 ML INJ IV PRN ×3 (05:14→21:06)
[2021-11-02] MEDS: VANCOMYCIN 1,750 MG in SODIUM CHLORIDE 0.9% 500 ML 500 ML IV SCH ×2 (05:14→16:38)
--- NOTE | 2021-11-02 07:22 | Progress Note ---
Assessment and Plan Begin local wound care to the right fourth toe continue IV antibiotics. Stabilize patient. We will consider doing right toe amputation on Wednesday. Continuing IV antibiotics will control his cellulitis and allow amputation with decreased risk for postop wound infection. Patient should be n.p.o. tonight for debridement and amputation tomorrow morning. Subjective Date of service: 11/02/21 Patient Reports: Positive: no new complaints, still having pain Objective Vital Signs - 12hr 11/01/21 11/01/21 11/02/21 21:27 23:00 04:32 Temperature 98.4 F 98.3 F Pulse Rate 93 H 89 Respiratory 18 18 Rate Blood Pressure 141/92 157/93 O2 Sat by Pulse 94 97 96 Oximetry - Musculoskeletal other (Left fourth toe decreased erythema continued edematous changes) - Labs 10/31/21 14:14 10/31/21 14:14
[2021-11-02] MEDS: CLINDAMYCIN 600 MG/50 mL 600 MG/50 ML BAG IV SCH ×2 (08:05→16:37)
[2021-11-02] MEDS: PIPERACIL/TAZOBACTA 4.5/NS 100 4.5 GM/100 ML VIAL IV SCH ×2 (08:06→16:38)
--- NOTE | 2021-11-02 08:47 | Progress Note ---
Assessment and Plan Assessment and plan: #Right fourth toe infection -Continue vancomycin, clindamycin and Zosyn -Plan for toe amputation and debridement on Wednesday -General surgery following, assistance appreciated #Raynaud's syndrome -Patient follows with rheumatology outpatient -Multiple ulcerations on his hands -Restarted amlodipine at home dose #Hypertension -Restarted chlorthalidone at home dose Disposition Plan: continue medical management History Interval history: No acute events overnight. Reports pain inadequately controlled. No other complaints at this time. Hospitalist Physical - Physical exam Narrative exam: GENERAL: Well-developed well-nourished. Sitting on the side of the bed in no acute distress. HEENT: Normocephalic. Atraumatic. CHEST/LUNGS: CTAB on room air HEART/CARDIOVASCULAR: RRR. No murmur, rubs or gallops appreciated. ABDOMEN: +BS. NT/ND. SKIN: Ulcerations noted on fingers. 4th necrotic toe NEURO: No focal motor deficit. Follows all commands and is ambulatory. MUSCULOSKELETAL: No joint effusion EXTREMITIES: No cyanosis, clubbing or edema. PSYCH: Cooperative. - Constitutional Vitals: Temp Pulse Resp BP Pulse Ox 98.3 F 89 18 157/93 96 11/02/21 04:32 11/02/21 04:32 11/02/21 04:32 11/02/21 04:32 11/02/21 04:32 General appearance: Present: mild distress Results - Labs CBC & Chem 7: 10/31/21 14:14 10/31/21 14:14 Labs: Laboratory Last Values WBC 5.9 K/mm3 (4.5-11.0) 10/31/21 14:14 RBC 4.60 M/mm3 (3.65-5.03) 10/31/21 14:14 Hgb 10.7 gm/dl (11.8-15.2) L 10/31/21 14:14 Hct 34.2 % (35.5-45.6) L 10/31/21 14:14 MCV 74 fl (84-94) L 10/31/21 14:14 MCH 23 pg (28-32) L 10/31/21 14:14 MCHC 31 % (32-34) L 10/31/21 14:14 RDW 19.7 % (13.2-15.2) H 10/31/21 14:14 Plt Count 347 K/mm3 (140-440) 10/31/21 14:14 Lymph % (Auto) 16.1 % (13.4-35.0) 10/31/21 14:14 [place] % (Auto) 15.7 % (0.0-7.3) H 10/31/21 14:14 Eos % (Auto) 2.0 % (0.0-4.3) 10/31/21 14:14 Baso % (Auto) 0.7 % (0.0-1.8) 10/31/21 14:14 Lymph # (Auto) 1.0 K/mm3 (1.2-5.4) L 10/31/21 14:14 [place] # (Auto) 0.9 K/mm3 (0.0-0.8) H 10/31/21 14:14 Eos # (Auto) 0.1 K/mm3 (0.0-0.4) 10/31/21 14:14 Baso # (Auto) 0.0 K/mm3 (0.0-0.1) 10/31/21 14:14 Seg Neutrophils % 65.5 % (40.0-70.0) 10/31/21 14:14 Seg Neutrophils # 3.9 K/mm3 (1.8-7.7) 10/31/21 14:14 Sodium 134 mmol/L (137-145) L 10/31/21 14:14 Potassium 3.9 mmol/L (3.6-5.0) 10/31/21 14:14 Chloride 98.0 mmol/L (98-107) 10/31/21 14:14 Carbon Dioxide 24 mmol/L (22-30) 10/31/21 14:14 Anion Gap 16 mmol/L 10/31/21 14:14 BUN 17 mg/dL (9-20) 10/31/21 14:14 Creatinine 0.7 mg/dL (0.8-1.3) L 10/31/21 14:14 Estimated GFR > 60 ml/min 10/31/21 14:14 BUN/Creatinine Ratio 24 % 10/31/21 14:14 Glucose 141 mg/dL (75-100) H 10/31/21 14:14 Lactic Acid 1.00 mmol/L (0.7-2.0) 10/31/21 14:14 Calcium 9.3 mg/dL (8.4-10.2) 10/31/21 14:14 Total Bilirubin < 0.20 mg/dL (0.1-1.2) 10/31/21 14:14 AST 32 units/L (5-40) 10/31/21 14:14 ALT 43 units/L (7-56) 10/31/21 14:14 Alkaline Phosphatase 108 units/L (35-129) 10/31/21 14:14 Total Protein 8.3 g/dL (6.3-8.2) H 10/31/21 14:14 Albumin 4.3 g/dL (3.9-5) 10/31/21 14:14 Albumin/Globulin Ratio 1.1 % 10/31/21 14:14 Microbiology: Microbiology 10/31/21 14:23 Peripheral/Venous Blood Culture - Preliminary NO GROWTH AFTER 24 HOURS 10/31/21 14:14 Peripheral/Venous Blood Culture - Preliminary NO GROWTH AFTER 24 HOURS Graves/IV: Voiding Method Toilet Active Medications - Current Medications Current Medications: Generic Name Dose Route Start Last Admin Trade Name Freq PRN Reason Stop Dose Admin Acetaminophen 650 mg 10/31/21 14:24 Acetaminophen 325 Mg Tab PO Q4H PRN Pain MILD(1-3)/Fever >100.5/[place] Albuterol 2.5 mg 10/31/21 14:24 Albuterol 2.5 Mg/3 Ml Nebu IH Q4HRT PRN Shortness Of Breath Amlodipine Besylate 10 mg 11/01/21 14:00 11/01/21 14:21 Amlodipine 10 Mg Tab PO Not Given QDAY MARY Chlorthalidone 25 mg 11/01/21 14:00 11/01/21 17:17 Chlorthalidone 25 Mg Tab PO Not Given QDAY MARY Famotidine 40 mg 11/01/21 22:00 11/01/21 21:43 Famotidine 20 Mg Tab PO 40 mg QHS MARY Administration Hydromorphone HCl 0.5 mg 10/31/21 14:24 11/02/21 05:14 Hydromorphone 1 Mg/1 Ml Inj IV 0.5 mg Q8H PRN Administration Pain , Severe (7-10) Piperacillin Sod/Tazobactam Sod 4.5 gm in 100 mls @ 200 mls/hr 11/01/21 16:30 11/02/21 08:06 Zosyn/Ns 4.5gm/100ml IV 200 mls/hr Q8H MARY Administration Protocol Clindamycin HCl 600 mg in 50 mls @ 100 mls/hr 11/01/21 16:00 11/02/21 08:05 Cleocin 600 Mg/50 Ml IV 100 mls/hr Q8H MARY Administration Protocol Vancomycin HCl 1,750 mg/ 535 mls @ 333.333 mls/hr 11/01/21 17:00 11/02/21 05:14 Sodium Chloride IV 333.333 mls/hr Q12H MARY Administration Ondansetron HCl 4 mg 10/31/21 14:24 11/01/21 05:58 Ondansetron 4 Mg/2 Ml Inj IV 4 mg Q8H PRN Administration Nausea And Vomiting Oxycodone/Acetaminophen 1 tab 10/31/21 14:24 11/02/21 00:41 Oxycodone /Acetaminophen 5-325mg Tab PO 1 tab Q6H PRN Administration Pain, Moderate (4-6) Sodium Chloride 10 ml 10/31/21 22:00 11/01/21 23:31 Sodium Chloride 0.9% 10 Ml Flush Syringe IV 10 ml BID MARY Administration Sodium Chloride 10 ml 10/31/21 14:24 Sodium Chloride 0.9% 10 Ml Flush Syringe IV PRN PRN LINE FLUSH
[2021-11-02] MEDS: amLODIPine 10 MG TAB PO SCH (09:33)
[2021-11-02] MEDS: CHLORTHALIDONE 25 MG TAB PO SCH (09:33)
[2021-11-02 15:12] LABS: BUN/Creatinine Ratio 19; Blood Urea Nitrogen 15 mg/dL (9-20); Calcium 8.8 mg/dL (8.4-10.2); Hemolysis Index 8
[2021-11-02] MEDS: FAMOTIDINE 20 MG TAB PO SCH (21:05)
[2021-11-03] MEDS: CLINDAMYCIN 600 MG/50 mL 600 MG/50 ML BAG IV SCH ×3 (01:18→16:45)
[2021-11-03] MEDS: PIPERACIL/TAZOBACTA 4.5/NS 100 4.5 GM/100 ML VIAL IV SCH ×3 (01:18→16:45)
[2021-11-03] MEDS: HYDROmorphone 1 MG/1 ML INJ IV PRN ×3 (05:38→21:41)
[2021-11-03] MEDS: VANCOMYCIN 1,750 MG in SODIUM CHLORIDE 0.9% 500 ML 500 ML IV SCH ×2 (05:38→16:52)
[2021-11-03] MEDS: amLODIPine 10 MG TAB PO SCH (09:05)
[2021-11-03] MEDS: oxyCODONE /ACETAMINOPHEN 5-325MG TAB PO PRN (09:05)
[2021-11-03] MEDS: CHLORTHALIDONE 25 MG TAB PO SCH (09:13)
[2021-11-03] MEDS ORDERED: LIDOCAINE MPF (2%) 20 MG/1 ML VIAL 5 ML ONE (10:27)
[2021-11-03] MEDS ORDERED: propofoL 200 MG/20 ML VIAL IV ONE ×3 (10:28→11:19)
[2021-11-03] MEDS ORDERED: fentaNYL 100 MCG/2 ML INJ ONE (10:28)
[2021-11-03] MEDS ORDERED: BUPIVACAINE/PF (0.5%) 5 MG/1 ML 30 ML VIAL INFILTRATI ONE ×2 (10:56→11:28)
[2021-11-03] MEDS ORDERED: LIDOCAINE (1%) 10 MG/1 ML VIAL 20 ML MDV ONE (10:56)
[2021-11-03] MEDS ORDERED: MIDAZOLAM 2 MG/2 ML INJ ONE (10:58)
--- NOTE | 2021-11-03 11:09 | Anesthesia Day of Surgery ---
Anesthesia Day of Surgery - Day of Surgery Patient Examined: Yes Patient H&P Reviewed: Yes Patient is NPO: Yes
--- NOTE | 2021-11-03 11:11 | Anesthesia Consultation ---
Anesthesia Consult and Med Hx Date of service: 11/03/21 - Airway Anesthetic Teeth Evaluation: Good ROM Head & Neck: Adequate Mental/Hyoid Distance: Adequate Mallampati Class: Class II Intubation Access Assessment: Good - Pre-Operative Health Status ASA Pre-Surgery Classification: ASA3 Proposed Anesthetic Plan: MAC (GA if needed) - Pulmonary Hx Asthma: No COPD: No Hx Pneumonia: No - Cardiovascular System Hx Hypertension: Yes Hx Peripheral Vascular Disease: Yes (Raynaud's) - Endocrine Hx End Stage Renal Disease: No Hx Non-Insulin Dependent Diabetes: Yes - Hematic Hx Anemia: Yes
[2021-11-03] MEDS ORDERED: HYDROmorphone 1 MG/1 ML INJ IV PRN ×2 (11:12)
[2021-11-03] MEDS ORDERED: ONDANSETRON 4 MG/2 ML INJ IV PRN (11:12)
[2021-11-03] MEDS ORDERED: LIDOCAINE (1%) 10 MG/1 ML VIAL 20 ML MDV INFILTRATI ONE (11:29)
[2021-11-03] MEDS ORDERED: SODIUM CHLORIDE 0.9% IRR 1,500 ML BOTTLE IR ONE (11:29)
[2021-11-03] MEDS ORDERED: LACTATED RINGERS 1,000 ML ONE (11:30)
[2021-11-03] MEDS ORDERED: NEOMY 3.5 MG/BACIT 400 UNITS/POLY B 5000 UNITS OINT 15 GM TP ONE ×2 (11:35→11:45)
[2021-11-03] MEDS ORDERED: KETOROLAC 30 MG/1 ML INJ ONE (11:43)
--- NOTE | 2021-11-03 11:53 | Progress Note ---
Assessment and Plan Assessment and plan: #Right fourth toe infection #Cellulitis -Continue vancomycin, clindamycin and Zosyn -Plan for toe amputation and debridement on today -General surgery following, assistance appreciated #Raynaud's syndrome -Patient follows with rheumatology outpatient -Multiple ulcerations on his hands -Continue amlodipine at home dose #Hypertension -Continue chlorthalidone at home dose Disposition Plan: Continue medical management History Interval history: No acute events overnight. Awaiting amputation. No other complaints at this time. Hospitalist Physical - Physical exam Narrative exam: GENERAL: Well-developed well-nourished. In no acute distress. CHEST/LUNGS: CTAB on room air HEART/CARDIOVASCULAR: RRR. No murmur, rubs or gallops appreciated. ABDOMEN: +BS. NT/ND. SKIN: Ulcerations noted on fingers. 4th necrotic toe NEURO: No focal motor deficit. Follows all commands and is ambulatory. EXTREMITIES: No cyanosis, clubbing or edema. PSYCH: Cooperative. - Constitutional Vitals: Temp Pulse Resp BP Pulse Ox 97.5 F L 83 18 144/89 95 11/03/21 04:54 11/03/21 09:05 11/03/21 04:54 11/03/21 09:05 11/03/21 09:21 General appearance: Present: mild distress Results - Labs CBC & Chem 7: 10/31/21 14:14 11/02/21 14:30 Labs: Laboratory Last Values WBC 5.9 K/mm3 (4.5-11.0) 10/31/21 14:14 RBC 4.60 M/mm3 (3.65-5.03) 10/31/21 14:14 Hgb 10.7 gm/dl (11.8-15.2) L 10/31/21 14:14 Hct 34.2 % (35.5-45.6) L 10/31/21 14:14 MCV 74 fl (84-94) L 10/31/21 14:14 MCH 23 pg (28-32) L 10/31/21 14:14 MCHC 31 % (32-34) L 10/31/21 14:14 RDW 19.7 % (13.2-15.2) H 10/31/21 14:14 Plt Count 347 K/mm3 (140-440) 10/31/21 14:14 Lymph % (Auto) 16.1 % (13.4-35.0) 10/31/21 14:14 [place] % (Auto) 15.7 % (0.0-7.3) H 10/31/21 14:14 Eos % (Auto) 2.0 % (0.0-4.3) 10/31/21 14:14 Baso % (Auto) 0.7 % (0.0-1.8) 10/31/21 14:14 Lymph # (Auto) 1.0 K/mm3 (1.2-5.4) L 10/31/21 14:14 [place] # (Auto) 0.9 K/mm3 (0.0-0.8) H 10/31/21 14:14 Eos # (Auto) 0.1 K/mm3 (0.0-0.4) 10/31/21 14:14 Baso # (Auto) 0.0 K/mm3 (0.0-0.1) 10/31/21 14:14 Seg Neutrophils % 65.5 % (40.0-70.0) 10/31/21 14:14 Seg Neutrophils # 3.9 K/mm3 (1.8-7.7) 10/31/21 14:14 Sodium 133 mmol/L (137-145) L 11/02/21 14:30 Potassium 4.0 mmol/L (3.6-5.0) 11/02/21 14:30 Chloride 96.7 mmol/L (98-107) L 11/02/21 14:30 Carbon Dioxide 27 mmol/L (22-30) 11/02/21 14:30 Anion Gap 13 mmol/L 11/02/21 14:30 BUN 15 mg/dL (9-20) 11/02/21 14:30 Creatinine 0.8 mg/dL (0.8-1.3) 11/02/21 14:30 Estimated GFR > 60 ml/min 11/02/21 14:30 BUN/Creatinine Ratio 19 % 11/02/21 14:30 Glucose 163 mg/dL (75-100) H 11/02/21 14:30 Lactic Acid 1.00 mmol/L (0.7-2.0) 10/31/21 14:14 Calcium 8.8 mg/dL (8.4-10.2) 11/02/21 14:30 Total Bilirubin < 0.20 mg/dL (0.1-1.2) 10/31/21 14:14 AST 32 units/L (5-40) 10/31/21 14:14 ALT 43 units/L (7-56) 10/31/21 14:14 Alkaline Phosphatase 108 units/L (35-129) 10/31/21 14:14 Total Protein 8.3 g/dL (6.3-8.2) H 10/31/21 14:14 Albumin 4.3 g/dL (3.9-5) 10/31/21 14:14 Albumin/Globulin Ratio 1.1 % 10/31/21 14:14 Microbiology: Microbiology 10/31/21 14:23 Peripheral/Venous Blood Culture - Preliminary NO GROWTH AFTER 48 HOURS 10/31/21 14:14 Peripheral/Venous Blood Culture - Preliminary NO GROWTH AFTER 48 HOURS Graves/IV: Voiding Method Toilet Active Medications - Current Medications Current Medications: Generic Name Dose Route Start Last Admin Trade Name Freq PRN Reason Stop Dose Admin Acetaminophen 650 mg 10/31/21 14:24 Acetaminophen 325 Mg Tab PO Q4H PRN Pain MILD(1-3)/Fever >100.5/[place] Albuterol 2.5 mg 10/31/21 14:24 Albuterol 2.5 Mg/3 Ml Nebu IH Q4HRT PRN Shortness Of Breath Amlodipine Besylate 10 mg 11/01/21 14:00 11/03/21 09:05 Amlodipine 10 Mg Tab PO 10 mg QDAY MARY Administration Chlorthalidone 25 mg 11/01/21 14:00 11/03/21 09:13 Chlorthalidone 25 Mg Tab PO 25 mg QDAY MARY Administration Famotidine 40 mg 11/01/21 22:00 11/02/21 21:05 Famotidine 20 Mg Tab PO 40 mg QHS MARY Administration Hydromorphone HCl 0.5 mg 11/02/21 14:47 11/03/21 05:38 Hydromorphone 1 Mg/1 Ml Inj IV 0.5 mg Q6H PRN Administration Pain , Severe (7-10) Hydromorphone HCl 0.25 mg 11/03/21 11:12 Hydromorphone 1 Mg/1 Ml Inj IV Q10MIN PRN Pain, Moderate (4-6) Hydromorphone HCl 0.5 mg 11/03/21 11:12 Hydromorphone 1 Mg/1 Ml Inj IV Q10MIN PRN Pain , Severe (7-10) Piperacillin Sod/Tazobactam Sod 4.5 gm in 100 mls @ 200 mls/hr 11/01/21 16:30 11/03/21 09:23 Zosyn/Ns 4.5gm/100ml IV 200 mls/hr Q8H MARY Administration Protocol Clindamycin HCl 600 mg in 50 mls @ 100 mls/hr 11/01/21 16:00 11/03/21 09:04 Cleocin 600 Mg/50 Ml IV 100 mls/hr Q8H MARY Administration Protocol Vancomycin HCl 1,750 mg/ 535 mls @ 333.333 mls/hr 11/01/21 17:00 11/03/21 05:38 Sodium Chloride IV 333.333 mls/hr Q12H MARY Administration Ondansetron HCl 4 mg 10/31/21 14:24 11/01/21 05:58 Ondansetron 4 Mg/2 Ml Inj IV 4 mg Q8H PRN Administration Nausea And Vomiting Ondansetron HCl 4 mg 11/03/21 11:12 Ondansetron 4 Mg/2 Ml Inj IV ONCE PRN Nausea And Vomiting Oxycodone/Acetaminophen 1 tab 10/31/21 14:24 11/03/21 09:05 Oxycodone /Acetaminophen 5-325mg Tab PO 1 tab Q6H PRN Administration Pain, Moderate (4-6) Sodium Chloride 10 ml 10/31/21 22:00 11/03/21 09:11 Sodium Chloride 0.9% 10 Ml Flush Syringe IV 10 ml BID MARY Administration Sodium Chloride 10 ml 10/31/21 14:24 Sodium Chloride 0.9% 10 Ml Flush Syringe IV PRN PRN LINE FLUSH
--- NOTE | 2021-11-03 16:22 | Post Anesthesia Evaluation ---
- Post Anesthesia Evaluation Patient Participated: Yes Airway Patent: Yes Stable Respiratory Function: Yes Nausea/Vomiting: No Temp > 96.8F: Yes Pain Manageable: Yes Adequeate Hydration: Yes Anesthesia Complications: No Block Receding Appropriately: Not Applicable Patient on Ventilator: No
[2021-11-03] MEDS: SODIUM CHLORIDE 0.9% 50 ML IVPB IV PRN ×2 (21:42→21:43)
[2021-11-03] MEDS: FAMOTIDINE 20 MG TAB PO SCH (21:51)
[2021-11-04] MEDS: oxyCODONE /ACETAMINOPHEN 5-325MG TAB PO PRN ×3 (01:53→19:55)
[2021-11-04] MEDS: PIPERACIL/TAZOBACTA 4.5/NS 100 4.5 GM/100 ML VIAL IV SCH ×2 (01:55→08:48)
[2021-11-04] MEDS: CLINDAMYCIN 600 MG/50 mL 600 MG/50 ML BAG IV SCH ×2 (02:55→07:51)
[2021-11-04] MEDS: HYDROmorphone 1 MG/1 ML INJ IV PRN ×4 (03:08→21:38)
[2021-11-04] MEDS: VANCOMYCIN 1,750 MG in SODIUM CHLORIDE 0.9% 500 ML 500 ML IV SCH ×2 (04:30→21:39)
--- NOTE | 2021-11-04 07:00 | Operative Report ---
Operative Report Operative Report: Date:11/03/21 Preoperative diagnosis: Frostbite with tissue necrosis right fourth toe Postop diagnosis: Same Procedure: Debridement of tissue decreased versus right fourth toe and amputation of distal phalanx Surgeon: Dr. Archer Anesthesia: MAC with IV sedation. Estimated blood loss: Minimal Specimen: Procedure: Patient is taken to the OR and timeouts are completed consent is on the chart. The area of concern is prepped with Betadine and draped in a sterile fashion. Sharp debridement is performed to areas of necrosis. Tissue necrosis extends to tip of the phalanx. The distal phalanx is removed to the distal interphalangeal joint. Cultures are obtained. The wound and its loosely closed with 2-0 Prolene suture Sterile dressing is placed with Xeroform gauze. Patient tolerated procedure well
--- NOTE | 2021-11-04 07:26 | Progress Note ---
Assessment and Plan Begin local wound care to the right fourth toe continue IV antibiotics. Patient is status post a debridement/amputation of the distal phalanx of the fourth toe on the right foot. He has much pain this morning which is to be anticipated. Local anesthetic that was used during the procedure should be worn off by now. We will begin local wound care. I do estimate for the patient's IV antibiotic requirements should be done. 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 Patient may significantly reduce the amount of time on IV antibiotics because of this. Recommendations from infectious disease would be appreciated. Subjective Date of service: 11/04/21 Patient Reports: Positive: still having pain Narrative: Patient is status post a debridement/amputation of the distal phalanx of the fourth toe on the right foot. He has much pain this morning which is to be anticipated. Local anesthetic that was used during the procedure should be worn off by now. We will begin local wound care. I do estimate for the patient's IV antibiotic requirements should be done. 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 Patient may significantly reduce the amount of time on IV antibiotics because of this. Recommendations from infectious disease would be appreciated. Objective Vital Signs - 12hr 11/03/21 11/03/21 11/03/21 20:14 21:43 23:54 Temperature 98.1 F 99 F Pulse Rate 94 H 88 Respiratory 18 18 Rate Blood Pressure 127/80 Blood Pressure 124/80 [Left] O2 Sat by Pulse 94 93 100 Oximetry 11/04/21 01:00 Temperature Pulse Rate Respiratory 18 Rate Blood Pressure Blood Pressure [Left] O2 Sat by Pulse 94 Oximetry - Musculoskeletal other (Dressing changed wound margins healing sutures in place) - Labs 10/31/21 14:14 11/02/21 14:30
[2021-11-04] MEDS ORDERED: HYDROmorphone 2 MG/1 ML INJ IV ONE (07:28)
[2021-11-04] MEDS ORDERED: HYDROmorphone 1 MG/1 ML INJ IV ONE (08:00)
--- NOTE | 2021-11-04 09:22 | Progress Note ---
Assessment and Plan Assessment and plan: 41 YO Male with no PMH presents ED for evaluation. Patient reports my foot hurts". Patient states that he has experienced pain, redness, swelling from his right toe over the past 5 days with persistent and worsening symptoms over the same timeframe. Patient transported to [facility] via private vehicle for further care and evaluation of the aforementioned symptoms. The patient was seen and evaluated in the emergency department. All lab and imaging studies reviewed. Patient found to have right fourth toe cellulitis with gangrene. Patient admitted to medical floor due to increased risk of worsening symptoms. Surgical team consulted in ED. Patient denies fever, chills, chest pain, palpitation, pr oductive cough, skin rash, recent contact, known exposure to COVID-19. No prior admission for review. #Right fourth toe infection #Cellulitis -Continue vancomycin, clindamycin stopped and Zosyn changed to Rocephin by ID today. -Status post amputation of right fourth toe today. Hemodynamically stable, afebrile, recent WBC normal. -General surgery following, assistance appreciated #Raynaud's syndrome -Patient follows with rheumatology outpatient -Multiple ulcerations on his hands -Continue amlodipine at home dose #Hypertension -Continue chlorthalidone at home dose Borderline glucose levels Will obtain hemoglobin A1c. Discussed with the patient and the nursing staff. History Interval history: Patient underwent an additional 40 right toe today. He is afebrile with stable vital signs. He is alert and oriented. Patient says that is painful but is seemingly Dilaudid to oxycodone. Currently on vancomycin and Rocephin empirically, as per ID recommendations. Patient denies fever, chills, chest pains, palpitations, dyspnea or wheezing. Hospitalist Physical - Constitutional Vitals: Temp Pulse Resp BP Pulse Ox 99 F 88 18 124/80 94 11/03/21 23:54 11/03/21 23:54 11/04/21 01:00 11/03/21 23:54 11/04/21 01:00 General appearance: Present: mild distress, other (Alert and oriented) - EENT Eyes: Present: PERRL, EOM intact ENT: clear oral mucosa - Neck Neck: Present: supple - Respiratory Respiratory: bilateral: CTA - Cardiovascular Rhythm: regular - Extremities Extremities: No edema Extremity abnormal: other (Right foot dressings in place.) - Abdominal General gastrointestinal: soft, non-tender, non-distended - Integumentary Integumentary: Absent: rash - Psychiatric Psychiatric: other (Anxious) - Neurologic Neurologic: no focal deficits, other (Alert and oriented with normal speech) Results - Labs CBC & Chem 7: 10/31/21 14:14 11/04/21 18:34 Labs: Laboratory Last Values WBC 5.9 K/mm3 (4.5-11.0) 10/31/21 14:14 RBC 4.60 M/mm3 (3.65-5.03) 10/31/21 14:14 Hgb 10.7 gm/dl (11.8-15.2) L 10/31/21 14:14 Hct 34.2 % (35.5-45.6) L 10/31/21 14:14 MCV 74 fl (84-94) L 10/31/21 14:14 MCH 23 pg (28-32) L 10/31/21 14:14 MCHC 31 % (32-34) L 10/31/21 14:14 RDW 19.7 % (13.2-15.2) H 10/31/21 14:14 Plt Count 347 K/mm3 (140-440) 10/31/21 14:14 Lymph % (Auto) 16.1 % (13.4-35.0) 10/31/21 14:14 [place] % (Auto) 15.7 % (0.0-7.3) H 10/31/21 14:14 Eos % (Auto) 2.0 % (0.0-4.3) 10/31/21 14:14 Baso % (Auto) 0.7 % (0.0-1.8) 10/31/21 14:14 Lymph # (Auto) 1.0 K/mm3 (1.2-5.4) L 10/31/21 14:14 [place] # (Auto) 0.9 K/mm3 (0.0-0.8) H 10/31/21 14:14 Eos # (Auto) 0.1 K/mm3 (0.0-0.4) 10/31/21 14:14 Baso # (Auto) 0.0 K/mm3 (0.0-0.1) 10/31/21 14:14 Seg Neutrophils % 65.5 % (40.0-70.0) 10/31/21 14:14 Seg Neutrophils # 3.9 K/mm3 (1.8-7.7) 10/31/21 14:14 Sodium 133 mmol/L (137-145) L 11/02/21 14:30 Potassium 4.0 mmol/L (3.6-5.0) 11/02/21 14:30 Chloride 96.7 mmol/L (98-107) L 11/02/21 14:30 Carbon Dioxide 27 mmol/L (22-30) 11/02/21 14:30 Anion Gap 13 mmol/L 11/02/21 14:30 BUN 15 mg/dL (9-20) 11/02/21 14:30 Creatinine 0.8 mg/dL (0.8-1.3) 11/02/21 14:30 Estimated GFR > 60 ml/min 11/02/21 14:30 BUN/Creatinine Ratio 19 % 11/02/21 14:30 Glucose 163 mg/dL (75-100) H 11/02/21 14:30 POC Glucose 98 mg/dL (70-105) 11/03/21 12:06 Lactic Acid 1.00 mmol/L (0.7-2.0) 10/31/21 14:14 Calcium 8.8 mg/dL (8.4-10.2) 11/02/21 14:30 Total Bilirubin < 0.20 mg/dL (0.1-1.2) 10/31/21 14:14 AST 32 units/L (5-40) 10/31/21 14:14 ALT 43 units/L (7-56) 10/31/21 14:14 Alkaline Phosphatase 108 units/L (35-129) 10/31/21 14:14 Total Protein 8.3 g/dL (6.3-8.2) H 10/31/21 14:14 Albumin 4.3 g/dL (3.9-5) 10/31/21 14:14 Albumin/Globulin Ratio 1.1 % 10/31/21 14:14 Microbiology: Microbiology 10/31/21 14:23 Peripheral/Venous Blood Culture - Preliminary NO GROWTH AFTER 72 HOURS 10/31/21 14:14 Peripheral/Venous Blood Culture - Preliminary NO GROWTH AFTER 72 HOURS Graves/IV: Voiding Method Urinal Active Medications - Current Medications Current Medications: Generic Name Dose Route Start Last Admin Trade Name Freq PRN Reason Stop Dose Admin Acetaminophen 650 mg 10/31/21 14:24 Acetaminophen 325 Mg Tab PO Q4H PRN Pain MILD(1-3)/Fever >100.5/[place] Albuterol 2.5 mg 10/31/21 14:24 Albuterol 2.5 Mg/3 Ml Nebu IH Q4HRT PRN Shortness Of Breath Amlodipine Besylate 10 mg 11/01/21 14:00 11/03/21 09:05 Amlodipine 10 Mg Tab PO 10 mg QDAY MARY Administration Chlorthalidone 25 mg 11/01/21 14:00 11/03/21 09:13 Chlorthalidone 25 Mg Tab PO 25 mg QDAY MARY Administration Famotidine 40 mg 11/01/21 22:00 11/03/21 21:51 Famotidine 20 Mg Tab PO 40 mg QHS MARY Administration Hydromorphone HCl 0.5 mg 11/02/21 14:47 11/04/21 03:08 Hydromorphone 1 Mg/1 Ml Inj IV 0.5 mg Q6H PRN Administration Pain , Severe (7-10) Piperacillin Sod/Tazobactam Sod 4.5 gm in 100 mls @ 200 mls/hr 11/01/21 16:30 11/04/21 08:48 Zosyn/Ns 4.5gm/100ml IV 200 mls/hr Q8H MARY Administration Protocol Clindamycin HCl 600 mg in 50 mls @ 100 mls/hr 11/01/21 16:00 11/04/21 07:51 Cleocin 600 Mg/50 Ml IV 100 mls/hr Q8H MARY Administration Protocol Vancomycin HCl 1,750 mg/ 535 mls @ 333.333 mls/hr 11/01/21 17:00 11/04/21 04:30 Sodium Chloride IV 333.333 mls/hr Q12H MARY Administration Neomycin/Polymyxin/Bacitracin 1 applic 11/04/21 10:00 Neomy 3.5 Mg/Bacit 400 Units/Poly B 5000 Units Oint 15 Gm TP BID MARY Ondansetron HCl 4 mg 10/31/21 14:24 11/01/21 05:58 Ondansetron 4 Mg/2 Ml Inj IV 4 mg Q8H PRN Administration Nausea And Vomiting Oxycodone/Acetaminophen 1 tab 10/31/21 14:24 11/04/21 01:53 Oxycodone /Acetaminophen 5-325mg Tab PO 1 tab Q6H PRN Administration Pain, Moderate (4-6) Sodium Chloride 10 ml 10/31/21 22:00 11/03/21 21:46 Sodium Chloride 0.9% 10 Ml Flush Syringe IV Not Given BID MARY Sodium Chloride 10 ml 11/03/21 14:36 11/03/21 21:43 Sodium Chloride 0.9% 50 Ml Ivpb IV 10 ml PRN PRN Administration FLUSH
[2021-11-04] MEDS: amLODIPine 10 MG TAB PO SCH (10:36)
[2021-11-04] MEDS: CHLORTHALIDONE 25 MG TAB PO SCH (10:36)
[2021-11-04] MEDS: NEOMY 3.5 MG/BACIT 400 UNITS/POLY B 5000 UNITS OINT 15 GM TP SCH ×2 (11:00→21:45)
--- NOTE | 2021-11-04 13:12 | Consultation ---
History of Present Illness - Reason for Consult Consult date: 11/04/21 - History of Present Illness 41 yo M no known PMHx presented to the hospital complaining of foot pain which began 5 days prior to admission. He notes it is associated with redness and swelling. It is worsening since onset. He was taken to the OR today for debridement and amputation of the distal phalanx of the fourth right toe. Afebrile with a normal white count. imaging personally reviewed: None available. Review of Systems: Bold if positive, otherwise negative General: fevers, chills, rigors HEENT: visual disturbance, diplopia, eye pain Respiratory: cough, sputum, hemoptysis, shortness of breath Cardiovascular: chest pain, syncope Gastrointestinal: nausea, vomiting, diarrhea, abdominal pain Genitourinary: dysuria, hematuria, flank pain Musculoskeletal: neck pain, back pain, joint pain, edema Neurologic: headaches, seizures Hematologic: easy bruising or bleeding Endocrine: night sweats, acute weight loss Skin: rash, jaundice, redness Psychiatric: suicidal, homicidal ideation Past History Past Medical History: No medical history, other (Reviewed) Past Surgical History: No surgical history, Other (Reviewed) Social history: single Family history: hypertension Medications and Allergies Allergies Allergy/AdvReac Type Severity Reaction Status Date / Time No Known Allergies Allergy Verified 10/20/21 09:57 Home Medications Medication Instructions Recorded Confirmed Last Taken Type Ferrous Sulfate [Ferrous Sulfate 324 mg PO BID #60 tab 10/20/21 11/04/21 Unknown Rx 324 MG] Ibuprofen [Motrin] 600 mg PO Q8H PRN #30 tablet 10/20/21 11/04/21 Unknown Rx Chlorthalidone [Thalitone] 25 mg PO DAILY 11/04/21 11/04/21 Unknown History Active Meds: Active Medications Acetaminophen (Acetaminophen 325 Mg Tab) 650 mg PO Q4H PRN PRN Reason: Pain MILD(1-3)/Fever >100.5/[place] Albuterol (Albuterol 2.5 Mg/3 Ml Nebu) 2.5 mg IH Q4HRT PRN PRN Reason: Shortness Of Breath Amlodipine Besylate (Amlodipine 10 Mg Tab) 10 mg PO QDAY [facility] Last Admin: 11/04/21 10:36 Dose: 10 mg Chlorthalidone (Chlorthalidone 25 Mg Tab) 25 mg PO QDAY [facility] Last Admin: 11/04/21 10:36 Dose: 25 mg Famotidine (Famotidine 20 Mg Tab) 40 mg PO QHS [facility] Last Admin: 11/03/21 21:51 Dose: 40 mg Hydromorphone HCl (Hydromorphone 1 Mg/1 Ml Inj) 0.5 mg IV Q4H PRN PRN Reason: Pain , Severe (7-10) Last Admin: 11/04/21 12:32 Dose: 0.5 mg Piperacillin Sod/Tazobactam Sod (Zosyn/Ns 4.5gm/100ml) 4.5 gm in 100 mls @ 200 mls/hr IV Q8H [facility]; Protocol Last Admin: 11/04/21 08:48 Dose: 200 mls/hr Vancomycin HCl 1,750 mg/ (Sodium Chloride) 535 mls @ 333.333 mls/hr IV Q12H [facility] Last Admin: 11/04/21 04:30 Dose: 333.333 mls/hr Neomycin/Polymyxin/Bacitracin (Neomy 3.5 Mg/Bacit 400 Units/Poly B 5000 Units Oint 15 Gm) 1 applic TP BID [facility] Ondansetron HCl (Ondansetron 4 Mg/2 Ml Inj) 4 mg IV Q8H PRN PRN Reason: Nausea And Vomiting Last Admin: 11/01/21 05:58 Dose: 4 mg Oxycodone/Acetaminophen (Oxycodone /Acetaminophen 5-325mg Tab) 1 tab PO Q6H PRN PRN Reason: Pain, Moderate (4-6) Last Admin: 11/04/21 10:38 Dose: 1 tab Sodium Chloride (Sodium Chloride 0.9% 10 Ml Flush Syringe) 10 ml IV BID [facility] Last Admin: 11/04/21 10:38 Dose: 10 ml Sodium Chloride (Sodium Chloride 0.9% 50 Ml Ivpb) 10 ml IV PRN PRN PRN Reason: FLUSH Last Admin: 11/03/21 21:43 Dose: 10 ml Physical Examination - Physical Exam Narrative exam: Physical Exam: Constitutional: Alert, cooperative. No acute distress Head, Ears, Nose: Normocephalic, atraumatic. External ears, nose normal Eyes: Conjunctivae/corneas clear. No icterus. No ptosis. Neck: Supple, no meningeal signs Oral: dentition fair, no thrush Cardiovascular: S1, S2 normal. Respiratory: Good air entry, clear to auscultation bilaterally GI: Soft, non-tender; bowel sounds normal. No peritoneal signs. Musculoskeletal: right fourth toe amputation. Skin: No rash or abscess Hem/Lymphatic: No palpable cervical or supraclavicular nodes. No lymphangitis Psych: Mood ok. Affect normal Neurological: Awake, alert, oriented. No gross abnormality - Constitutional Vitals: Vital Signs Temp Pulse Resp BP Pulse Ox 97.8 F 93 H 20 155/99 94 11/04/21 11:00 11/04/21 11:00 11/04/21 11:00 11/04/21 11:00 11/04/21 01:00 Temperature -Last 24 Hours Temperature 97.8 F Temperature 99 F Temperature 98.1 F Temperature 97.3 F Results - Labs CBC & Chem 7: 10/31/21 14:14 11/02/21 14:30 Assessment and Plan Cultures: None A/P: 41 yo M PMHx none presents to the hosptial with right fourth toe gangrene. #Right fourth toe gangrene with cellulitis: s/p amputation of the distal phalanx. Recs: -Stopped Zosyn -Started ceftriaxone 2g q24h -Continue vancomycin goal trough 10-20 -OK to DC on Bactrim DS q12h for 7 days Thank you for the consult, we will continue to follow. MD [facility] ([facility]) O: [phone] F: [phone]
[2021-11-04] MEDS: cefTRIAXone/NS 2 GM/100 ML 2 GM/100 ML BAG IV SCH (16:07)
[2021-11-04 19:29] LABS: BUN/Creatinine Ratio 20; Blood Urea Nitrogen 18 mg/dL (9-20); Calcium 8.7 mg/dL (8.4-10.2); Hemolysis Index 0
[2021-11-04] MEDS: FAMOTIDINE 20 MG TAB PO SCH (21:44)
[2021-11-04] MEDS: SODIUM CHLORIDE 0.9% 50 ML IVPB IV PRN (21:46)
[2021-11-05] MEDS: HYDROmorphone 1 MG/1 ML INJ IV PRN ×5 (00:54→20:00)
[2021-11-05] MEDS: SODIUM CHLORIDE 0.9% 50 ML IVPB IV PRN ×2 (00:56→09:27)
[2021-11-05] MEDS: VANCOMYCIN 1,750 MG in SODIUM CHLORIDE 0.9% 500 ML 500 ML IV SCH (04:59)
[2021-11-05] MEDS: oxyCODONE /ACETAMINOPHEN 5-325MG TAB PO PRN ×3 (06:08→18:44)
[2021-11-05] MEDS: amLODIPine 10 MG TAB PO SCH (09:21)
[2021-11-05] MEDS: NEOMY 3.5 MG/BACIT 400 UNITS/POLY B 5000 UNITS OINT 15 GM TP SCH ×2 (11:54→21:10)
--- NOTE | 2021-11-05 12:30 | Progress Note ---
Assessment and Plan Cultures: None A/P: 41 yo M PMHx none presents to the hosptial with right fourth toe gangrene. #Right fourth toe gangrene with cellulitis: s/p amputation of the distal phalanx. Recs: -Started ceftriaxone 2g q24h -Continue vancomycin goal trough 10-20 -OK to DC on Bactrim DS q12h for 7 days Thank you for the consult, we will continue to follow. Michelle Geller MD [facility] ([facility]) O: [phone] F: [phone] Subjective Date of service: 11/05/21 Interval history: Afebrile, normal white count. Cultures remain negative. Objective - Exam Narrative Exam: Physical Exam: Constitutional: Alert, cooperative. No acute distress Head, Ears, Nose: Normocephalic, atraumatic. External ears, nose normal Eyes: Conjunctivae/corneas clear. No icterus. No ptosis. Neck: Supple, no meningeal signs Oral: dentition fair, no thrush Cardiovascular: S1, S2 normal. Respiratory: Good air entry, clear to auscultation bilaterally GI: Soft, non-tender; bowel sounds normal. No peritoneal signs. Musculoskeletal: right fourth toe amputation. Skin: No rash or abscess Hem/Lymphatic: No palpable cervical or supraclavicular nodes. No lymphangitis Psych: Mood ok. Affect normal Neurological: Awake, alert, oriented. No gross abnormality - Constitutional Vitals: Vital Signs Temp Pulse Resp BP Pulse Ox 98.3 F 77 20 139/90 95 11/04/21 20:51 11/04/21 20:51 11/05/21 09:22 11/04/21 20:51 11/05/21 11:46 Temperature -Last 24 Hours Temperature 98.3 F Temperature 98.9 F - Labs CBC & Chem 7: 10/31/21 14:14 11/04/21 18:34 Labs: Abnormal lab results 11/04/21 Range/Units 18:34 Chloride 97.8 L (98-107) mmol/L Glucose 154 H (75-100) mg/dL
[2021-11-05] MEDS: CHLORTHALIDONE 25 MG TAB PO SCH (13:25)
[2021-11-05] MEDS: cefTRIAXone/NS 2 GM/100 ML 2 GM/100 ML BAG IV SCH (14:29)
[2021-11-05 16:39] LABS: Alanine Aminotransferase 52 units/L (7-56); BUN/Creatinine Ratio 20; Blood Urea Nitrogen 14 mg/dL (9-20); Calcium 9.3 mg/dL (8.4-10.2); Hemolysis Index 2
--- NOTE | 2021-11-05 16:51 | Discharge Summary ---
Providers - Providers Date of Admission: 10/31/21 14:24 Attending physician: AGUILA RUIZ MD 10/31/21 12:32 Consult to Physician [CONS] Stat Comment: Consulting Provider: JEANNE SPENCE Physician Instructions: Reason For Exam: gangrene 4th toe 10/31/21 20:19 Consult to Case Management [CONS] Routine Services Needed at Discharge: Other Notified:: In a.m. Additional Physician Instructions: Homelessness. Assistance with discharge to homeless a alf. Consult to Wound/ET Nurse [CONS] Routine Reason For Exam: wound eval 11/04/21 09:25 Consult to Physician [CONS] Routine Comment: Consulting Provider: JOSHUA MARIE Physician Instructions: Reason For Exam: Infected toe Primary care physician: QUANTITATIVE DEVELOPER Hospitalization Condition: Stable Hospital course: 41 YO Male with no PMH presents ED for evaluation. Patient reports my foot hurts". Patient states that he has experienced pain, redness, swelling from his right toe over the past 5 days with persistent and worsening symptoms over the same timeframe. Patient transported to [facility] via private vehicle for further care and evaluation of the aforementioned symptoms. The patient was seen and evaluated in the emergency department. All lab and imaging studies reviewed. Patient found to have right fourth toe cellulitis with gangrene. Patient admitted to medical floor due to increased risk of worsening symptoms. Surgical team consulted in ED. Patient denies fever, chills, chest pain, palpitation, productive cough, skin rash, recent contact, known exposure to COVID-19. No prior admission for review. #Right fourth toe infection #Cellulitis -Continue vancomycin, clindamycin stopped and Zosyn changed to Rocephin by ID 11/04. -Status post amputation of right fourth toe today. Hemodynamically stable, afebrile, recent WBC normal. -General surgery following, assistance appreciated No surgical cultures sent, patient remains afebrile with a normal WBC. ID recommends discharging on the Bactrim DS, twice daily x7 days. Patient will implement wound care instructions as per surgery and will have outpatient follow-up. 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 History of Raynaud's. Borderline DM, hemoglobin A1c 7.0. Hypertension Exam - Constitutional Vitals: Temp Pulse Resp BP Pulse Ox 98.3 F 77 20 139/90 95 11/04/21 20:51 11/04/21 20:51 11/05/21 14:24 11/04/21 20:51 11/05/21 11:46 General appearance: Present: no acute distress - EENT Eyes: Present: PERRL, EOM intact ENT: clear oral mucosa - Neck Neck: Present: supple - Respiratory Respiratory effort: normal Respiratory: bilateral: CTA - Cardiovascular Rhythm: regular - Extremities Extremities: No edema Extremity abnormal: other (Right foot gauze dressings in place. Dry.) - Abdominal General gastrointestinal: Present: soft, non-tender - Integumentary Integumentary: Absent: rash - Musculoskeletal Musculoskeletal: strength equal bilaterally - Psychiatric Psychiatric: appropriate mood/affect - Neurologic Neurologic: no focal deficits Plan Activity: advance as tolerated Diet: regular Follow up with: PRIMARY CAREMD [Primary Care Provider] - 3-5 Days JEANNE SPENCE MD [Staff Physician] - 10 Days Prescriptions: Sulfamethoxazole/Trimethoprim [Bactrim DS TAB] 1 each PO BID #14 oxyCODONE /ACETAMINOPHEN [Percocet 5/325] 1 tab PO Q6HR PRN #15 tablet PRN Reason: Pain traMADoL [Ultram 50 MG tab] 50 mg PO Q6HR PRN #30 tablet PRN Reason: Pain
[2021-11-05 18:19] LABS: Hematocrit 33.8 % (35.5-45.6); Hemoglobin 10.4 gm/dl (11.8-15.2); Mean Corpuscular HGB Conc 31 % (32-34); Mean Corpuscular Volume 75 fl (84-94); Platelet Count 338 K/mm3 (140-440); Red Blood Count 4.51 M/mm3 (3.65-5.03); Red Cell Distribution Width 19.9 % (13.2-15.2)
--- NOTE | 2021-11-05 18:40 | Progress Note ---
Assessment and Plan Begin local wound care to the right fourth toe continue IV antibiotics. Patient is status post a debridement/amputation of the distal phalanx of the fourth toe on the right foot. He has much pain this morning which is to be anticipated. We will begin local wound care. I agree with plans for p.o. Bactrim on discharge. Would appreciate continued IV antibiotics for the cellulitis in the fourth toe to decrease risk for wound infections. Subjective Date of service: 11/05/21 Patient Reports: Positive: still having pain Narrative: Patient is 1 day status post amputation of his fourth toe on the left foot. He still has significant amounts of pain at the surgical site. There still evidence of cellulitis in the toe and swelling. Continue IV antibiotics for now agree with using p.o. Bactrim and discharge. I can see patient at the office in about a week or 2 to take stool sutures out. Objective Vital Signs - 12hr 11/05/21 11/05/21 11/05/21 09:22 10:00 11:46 Respiratory 20 20 Rate O2 Sat by Pulse 100 95 Oximetry 11/05/21 11/05/21 13:24 14:24 Respiratory 20 20 Rate O2 Sat by Pulse Oximetry - Labs 11/05/21 15:46 11/05/21 15:46 Diabetes panel 11/04/21 11/05/21 11/05/21 Range/Units 18:34 15:46 15:46 Sodium 137 138 (137-145) mmol/L Potassium 3.8 4.0 (3.6-5.0) mmol/L Chloride 97.8 L 98.6 (98-107) mmol/L Carbon Dioxide 27 27 (22-30) mmol/L BUN 18 14 (9-20) mg/dL Creatinine 0.9 0.7 L (0.8-1.3) mg/dL Glucose 154 H 146 H (75-100) mg/dL Hemoglobin A1c 7.0 H (4-6) % Calcium 8.7 9.3 (8.4-10.2) mg/dL AST 33 (5-40) units/L ALT 52 (7-56) units/L Alkaline Phosphatase 142 H (35-129) units/L Total Protein 7.9 (6.3-8.2) g/dL Albumin 4.0 (3.9-5) g/dL Calcium panel 11/04/21 11/05/21 Range/Units 18:34 15:46 Calcium 8.7 9.3 (8.4-10.2) mg/dL Albumin 4.0 (3.9-5) g/dL Pituitary panel 11/04/21 11/05/21 Range/Units 18:34 15:46 Sodium 137 138 (137-145) mmol/L Potassium 3.8 4.0 (3.6-5.0) mmol/L Chloride 97.8 L 98.6 (98-107) mmol/L Carbon Dioxide 27 27 (22-30) mmol/L BUN 18 14 (9-20) mg/dL Creatinine 0.9 0.7 L (0.8-1.3) mg/dL Glucose 154 H 146 H (75-100) mg/dL Calcium 8.7 9.3 (8.4-10.2) mg/dL Adrenal panel 11/04/21 11/05/21 Range/Units 18:34 15:46 Sodium 137 138 (137-145) mmol/L Potassium 3.8 4.0 (3.6-5.0) mmol/L Chloride 97.8 L 98.6 (98-107) mmol/L Carbon Dioxide 27 27 (22-30) mmol/L BUN 18 14 (9-20) mg/dL Creatinine 0.9 0.7 L (0.8-1.3) mg/dL Glucose 154 H 146 H (75-100) mg/dL Calcium 8.7 9.3 (8.4-10.2) mg/dL Total Bilirubin < 0.20 (0.1-1.2) mg/dL AST 33 (5-40) units/L ALT 52 (7-56) units/L Alkaline Phosphatase 142 H (35-129) units/L Total Protein 7.9 (6.3-8.2) g/dL Albumin 4.0 (3.9-5) g/dL
--- NOTE | 2021-11-05 19:23 | Progress Note ---
Assessment and Plan Assessment and plan: 41 YO Male with no PMH presents ED for evaluation. Patient reports my foot hurts". Patient states that he has experienced pain, redness, swelling from his right toe over the past 5 days with persistent and worsening symptoms over the same timeframe. Patient transported to [facility] via private vehicle for further care and evaluation of the aforementioned symptoms. The patient was seen and evaluated in the emergency department. All lab and imaging studies reviewed. Patient found to have right fourth toe cellulitis with gangrene. Patient admitted to medical floor due to increased risk of worsening symptoms. Surgical team consulted in ED. Patient denies fever, chills, chest pain, palpitation, pr oductive cough, skin rash, recent contact, known exposure to COVID-19. No prior admission for review. #Right fourth toe infection #Cellulitis -Continue vancomycin, clindamycin stopped and Zosyn changed to Rocephin by ID on 11/04. -Status post amputation of distal phalanx of right fourth toe on 11/04 Hemodynamically stable, afebrile, recent WBC normal. -Surgical cultures still pending, general surgery recommends continuation of IV antibiotics for 1 to 2 days more. -General surgery and ID following, assistance appreciated #Raynaud's syndrome -Patient follows with rheumatology outpatient -Multiple ulcerations on his hands -Continue amlodipine at home dose #Hypertension -Continue chlorthalidone at home dose Borderline glucose levels Will obtain hemoglobin A1c. Disposition: Surgical cultures pending, general surgery recommends continuation of IV antibiotics for 1 to 2 days more. Discussed with the patient, CM and the nursing staff. History Interval history: Patient remains afebrile with stable vital signs. Complaining of pain in the footon Dilaudid and Percocet. Patient is able to get out of bed. Surgical cultures still pending. Surgery recommends to continue IV antibiotic therapy at least for 1 more day. Hospitalist Physical - Constitutional Vitals: Temp Pulse Resp BP Pulse Ox 97.7 F 99 H 20 89/50 95 11/05/21 04:20 11/05/21 04:20 11/05/21 18:44 11/05/21 04:20 11/05/21 11:46 General appearance: Present: no acute distress, well-nourished - EENT Eyes: Present: PERRL ENT: clear oral mucosa - Neck Neck: Present: supple - Respiratory Respiratory effort: normal Respiratory: bilateral: CTA - Cardiovascular Rhythm: regular - Extremities Extremities: No edema Extremity abnormal: other (Right footgauze dressings in place.) - Abdominal General gastrointestinal: soft, non-tender - Integumentary Integumentary: Absent: rash - Neurologic Neurologic: no focal deficits, moves all extremities Results - Labs CBC & Chem 7: 11/05/21 15:46 11/05/21 15:46 Labs: Laboratory Last Values WBC 5.1 K/mm3 (4.5-11.0) 11/05/21 15:46 RBC 4.51 M/mm3 (3.65-5.03) 11/05/21 15:46 Hgb 10.4 gm/dl (11.8-15.2) L 11/05/21 15:46 Hct 33.8 % (35.5-45.6) L 11/05/21 15:46 MCV 75 fl (84-94) L 11/05/21 15:46 MCH 23 pg (28-32) L 11/05/21 15:46 MCHC 31 % (32-34) L 11/05/21 15:46 RDW 19.9 % (13.2-15.2) H 11/05/21 15:46 Plt Count 338 K/mm3 (140-440) 11/05/21 15:46 Lymph % (Auto) 16.1 % (13.4-35.0) 10/31/21 14:14 [place] % (Auto) Oil Exploration Engineer 11/05/21 15:46 Eos % (Auto) 2.0 % (0.0-4.3) 10/31/21 14:14 Baso % (Auto) 0.7 % (0.0-1.8) 10/31/21 14:14 Lymph # (Auto) 1.0 K/mm3 (1.2-5.4) L 10/31/21 14:14 [place] # (Auto) 0.9 K/mm3 (0.0-0.8) H 10/31/21 14:14 Eos # (Auto) 0.1 K/mm3 (0.0-0.4) 10/31/21 14:14 Baso # (Auto) 0.0 K/mm3 (0.0-0.1) 10/31/21 14:14 Seg Neutrophils % 65.5 % (40.0-70.0) 10/31/21 14:14 Seg Neutrophils # 3.9 K/mm3 (1.8-7.7) 10/31/21 14:14 Sodium 138 mmol/L (137-145) 11/05/21 15:46 Potassium 4.0 mmol/L (3.6-5.0) 11/05/21 15:46 Chloride 98.6 mmol/L (98-107) 11/05/21 15:46 Carbon Dioxide 27 mmol/L (22-30) 11/05/21 15:46 Anion Gap 16 mmol/L 11/05/21 15:46 BUN 14 mg/dL (9-20) 11/05/21 15:46 Creatinine 0.7 mg/dL (0.8-1.3) L 11/05/21 15:46 Estimated GFR > 60 ml/min 11/05/21 15:46 BUN/Creatinine Ratio 20 % 11/05/21 15:46 Glucose 146 mg/dL (75-100) H 11/05/21 15:46 POC Glucose 98 mg/dL (70-105) 11/03/21 12:06 Hemoglobin A1c 7.0 % (4-6) H 11/05/21 15:46 Lactic Acid 1.00 mmol/L (0.7-2.0) 10/31/21 14:14 Calcium 9.3 mg/dL (8.4-10.2) 11/05/21 15:46 Total Bilirubin < 0.20 mg/dL (0.1-1.2) 11/05/21 15:46 AST 33 units/L (5-40) 11/05/21 15:46 ALT 52 units/L (7-56) 11/05/21 15:46 Alkaline Phosphatase 142 units/L (35-129) H 11/05/21 15:46 Total Protein 7.9 g/dL (6.3-8.2) 11/05/21 15:46 Albumin 4.0 g/dL (3.9-5) 11/05/21 15:46 Albumin/Globulin Ratio 1.0 % 11/05/21 15:46 Vancomycin Trough 19.1 ug/mL (5.0-20.0) 11/04/21 18:34 Microbiology: Microbiology 10/31/21 14:23 Peripheral/Venous Blood Culture - Final NO GROWTH AFTER 5 DAYS 10/31/21 14:14 Peripheral/Venous Blood Culture - Final NO GROWTH AFTER 5 DAYS Graves/IV: Voiding Method Toilet Active Medications - Current Medications Current Medications: Generic Name Dose Route Start Last Admin Trade Name Freq PRN Reason Stop Dose Admin Acetaminophen 650 mg 10/31/21 14:24 11/05/21 04:59 Acetaminophen 325 Mg Tab PO 650 mg Q4H PRN Administration Pain MILD(1-3)/Fever >100.5/[place] Albuterol 2.5 mg 10/31/21 14:24 Albuterol 2.5 Mg/3 Ml Nebu IH Q4HRT PRN Shortness Of Breath Amlodipine Besylate 10 mg 11/01/21 14:00 11/05/21 09:21 Amlodipine 10 Mg Tab PO 10 mg QDAY MARY Administration Chlorthalidone 25 mg 11/01/21 14:00 11/05/21 13:25 Chlorthalidone 25 Mg Tab PO 25 mg QDAY MARY Administration Famotidine 40 mg 11/01/21 22:00 11/04/21 21:44 Famotidine 20 Mg Tab PO 40 mg QHS MARY Administration Hydromorphone HCl 0.5 mg 11/04/21 12:14 11/05/21 14:24 Hydromorphone 1 Mg/1 Ml Inj IV 0.5 mg Q4H PRN Administration Pain , Severe (7-10) Ceftriaxone Sodium 2 gm in 100 mls @ 200 mls/hr 11/04/21 15:00 11/05/21 14:29 Rocephin/Ns 2 Gm/100 Ml IV 200 mls/hr Q24H MARY Administration Protocol Vancomycin HCl 1,500 mg/ 530 mls @ 333.333 mls/hr 11/05/21 22:00 Sodium Chloride IV Q12HR MARY Neomycin/Polymyxin/Bacitracin 1 applic 11/04/21 10:00 11/05/21 11:54 Neomy 3.5 Mg/Bacit 400 Units/Poly B 5000 Units Oint 15 Gm TP 1 applic BID MARY Administration Ondansetron HCl 4 mg 10/31/21 14:24 11/01/21 05:58 Ondansetron 4 Mg/2 Ml Inj IV 4 mg Q8H PRN Administration Nausea And Vomiting Oxycodone/Acetaminophen 1 tab 10/31/21 14:24 11/05/21 18:44 Oxycodone /Acetaminophen 5-325mg Tab PO 1 tab Q6H PRN Administration Pain, Moderate (4-6) Sodium Chloride 10 ml 10/31/21 22:00 11/05/21 11:50 Sodium Chloride 0.9% 10 Ml Flush Syringe IV 10 ml BID MARY Administration Sodium Chloride 10 ml 11/03/21 14:36 11/05/21 09:27 Sodium Chloride 0.9% 50 Ml Ivpb IV 10 ml PRN PRN Administration FLUSH
[2021-11-05] MEDS: FAMOTIDINE 20 MG TAB PO SCH (21:08)
[2021-11-05] MEDS: VANCOMYCIN 1,500 MG in SODIUM CHLORIDE 0.9% 500 ML 500 ML IV SCH (21:09)
[2021-11-05 21:37] LABS: Basophils % (Manual) 0 % (0.0-1.8); Total Cells Counted 100
[2021-11-05 21:38] LABS: Anisocytosis 1+; Hypochromasia 1+; Ovalocytes 1+; Platelet Estimate Consistent w Auto; Target Cells Rare
[2021-11-06] MEDS: HYDROmorphone 1 MG/1 ML INJ IV PRN ×2 (00:48→05:09)
[2021-11-06 05:12] VITALS: BP 159/103
[2021-11-06] MEDS ORDERED: hydrALAZINE 20 MG/1 ML INJ IV PRN (06:27)
[2021-11-06] MEDS: oxyCODONE /ACETAMINOPHEN 5-325MG TAB PO PRN ×2 (08:52→14:26)
[2021-11-06] MEDS: VANCOMYCIN 1,500 MG in SODIUM CHLORIDE 0.9% 500 ML 500 ML IV SCH (09:54)
[2021-11-06] MEDS: amLODIPine 10 MG TAB PO SCH (09:55)
[2021-11-06] MEDS: CHLORTHALIDONE 25 MG TAB PO SCH (09:55)
[2021-11-06] MEDS: NEOMY 3.5 MG/BACIT 400 UNITS/POLY B 5000 UNITS OINT 15 GM TP SCH (09:55)
[2021-11-06] MEDS ORDERED: CHLORTHALIDONE 25 MG TAB PO SCH (12:00)
--- NOTE | 2021-11-06 12:58 | Progress Note ---
Assessment and Plan Cultures: Blood cultures no growth so far. A/P: 41 yo M PMHx none presents to the hosptial with right fourth toe gangrene. #Right fourth toe gangrene with cellulitis: s/p amputation of the distal phalanx. Recs: -Started ceftriaxone 2g q24h -Continue vancomycin goal trough 10-20 -OK to DC on Bactrim DS q12h for 7 days given ongoing cellulitis Follow up in 2 weeks. Thank you for the consult, we will continue to follow. Michelle Geller MD [facility] ([facility]) O: [phone] F: [phone] Subjective Date of service: 11/06/21 Interval history: Normal white count. Objective - Exam Narrative Exam: Physical Exam: Constitutional: Alert, cooperative. No acute distress Head, Ears, Nose: Normocephalic, atraumatic. External ears, nose normal Eyes: Conjunctivae/corneas clear. No icterus. No ptosis. Neck: Supple, no meningeal signs Oral: dentition fair, no thrush Cardiovascular: S1, S2 normal. Respiratory: Good air entry, clear to auscultation bilaterally GI: Soft, non-tender; bowel sounds normal. No peritoneal signs. Musculoskeletal: right fourth toe amputation. Skin: No rash or abscess Hem/Lymphatic: No palpable cervical or supraclavicular nodes. No lymphangitis Psych: Mood ok. Affect normal Neurological: Awake, alert, oriented. No gross abnormality - Constitutional Vitals: Vital Signs Temp Pulse Resp BP Pulse Ox 97.5 F L 80 20 159/103 97 11/06/21 04:36 11/06/21 04:36 11/06/21 08:52 11/06/21 04:36 11/06/21 11:34 Temperature -Last 24 Hours Temperature 97.5 F Temperature 98.3 F - Labs CBC & Chem 7: 11/05/21 15:46 11/05/21 15:46 Labs: Abnormal lab results 11/05/21 11/05/21 11/05/21 Range/Units 15:46 15:46 15:46 Hgb 10.4 L (11.8-15.2) gm/dl Hct 33.8 L (35.5-45.6) % MCV 75 L (84-94) fl MCH 23 L (28-32) pg MCHC 31 L (32-34) % RDW 19.9 H (13.2-15.2) % Seg Neuts % (Manual) 72.0 H (40.0-70.0) % Lymphocytes % (Manual) 10.0 L (13.4-35.0) % Monocytes % (Manual) 16.0 H (0.0-7.3) % Lymphocytes # (Manual) 0.5 L (1.2-5.4) K/mm3 Creatinine 0.7 L (0.8-1.3) mg/dL Glucose 146 H (75-100) mg/dL POC Glucose (70-105) mg/dL Hemoglobin A1c 7.0 H (4-6) % Alkaline Phosphatase 142 H (35-129) units/L 11/06/21 Range/Units 11:09 Hgb (11.8-15.2) gm/dl Hct (35.5-45.6) % MCV (84-94) fl MCH (28-32) pg MCHC (32-34) % RDW (13.2-15.2) % Seg Neuts % (Manual) (40.0-70.0) % Lymphocytes % (Manual) (13.4-35.0) % Monocytes % (Manual) (0.0-7.3) % Lymphocytes # (Manual) (1.2-5.4) K/mm3 Creatinine (0.8-1.3) mg/dL Glucose (75-100) mg/dL POC Glucose 181 H (70-105) mg/dL Hemoglobin A1c (4-6) % Alkaline Phosphatase (35-129) units/L
[2021-11-06] MEDS: cefTRIAXone/NS 2 GM/100 ML 2 GM/100 ML BAG IV SCH (14:26)
== END 2021-11-06 20:45 | disposition home or self-care (01) | DRG 256 ==
LOC: ED 11:03 → 3A 14:24
PROVIDERS: ADMIT Internal Medicine; ATTEND Internal Medicine
PROC: 0Y6V0Z3 Detachment at Right 4th Toe, Low, Open Approach (ICD-10-PCS; principal; 2021-11-03)
DX: E11.52 Type 2 diabetes mellitus with diabetic peripheral angiopathy with gangrene (principal); I73.01 Raynaud's syndrome with gangrene; L08.9 Local infection of the skin and subcutaneous tissue, unspecified; Z59.02 Unsheltered homelessness; L03.031 Cellulitis of right toe; Z82.49 Family history of ischemic heart disease and other diseases of the circulatory system
CPT/HCPCS: 36415; 80048; 80053; 80202; 82140; 82962; 83036; 85007; 85025; 87040; 88305; 88311; 96374; G0378; J3490; J7120; J7502; J7517; J0360; J0696; J1170; J1885; J2250; J2270; J2405; J2543; J2704; J3010; J3370; J7040

== ENCOUNTER 2021-12-04 06:48 | Emergency (ER) | payer SELFPAY ==
[2021-12-04] MEDS ORDERED: KETOROLAC 30 MG/1 ML INJ IV ONE (07:39)
--- NOTE | 2021-12-04 07:41 | Emergency Department Report ---
ED General Adult HPI - General Chief complaint: Dyspnea/Respdistress Stated complaint: COUGHING UP BLOOD/RT FOOT PAIN Time Seen by Provider: 12/04/21 07:31 Source: patient Mode of arrival: Ambulatory Limitations: No Limitations - History of Present Illness Initial comments: Patient presents with 2 different issues. He is complaining of toe pain. He cortez d a toe surgery about [address] Valenzuela. He had infection in the bone. Patient states that he was told Wednesday, when he saw Dr. Archer, that he still had infection in the bone and needed more surgery. He was told that it would not be scheduled because it did not "get covered under the same plan and the patient had no insurance." He was given [place]. He came here for evaluation because the [place] was not helping his pain. He described as a burning and constant pain involving the right toe. There has been redness and drainage from this. He states that the bandage seems to stick to his toe on occasion. There is no new trauma. He has no fevers. He also reports having blood-tinged sputum. He has had a cough for couple of days. About 2 days ago he noticed that the sputum was blood-tinged. It was not adrian blood. He is not bleeding from other sites. Again, he has no fever. Th ere has been no sick contact. He has had no exposure to tuberculosis. He is not anticoagulated. - Related Data Home Medications Medication Instructions Recorded Confirmed Last Taken Chlorthalidone [Thalitone] 25 mg PO DAILY 11/04/21 11/04/21 Unknown amLODIPine 10 mg PO BID 11/06/21 11/06/21 Unknown Previous Rx's Medication Instructions Recorded Last Taken Type Ferrous Sulfate [Ferrous Sulfate 324 mg PO BID #60 tab 10/20/21 Unknown Rx 324 MG] Ibuprofen [Motrin 600 MG tab] 600 mg PO Q8H PRN #30 tablet 12/04/21 Unknown Rx Sulfamethoxazole/Trimethoprim 1 each PO BID #14 12/04/21 Unknown Rx [Bactrim DS TAB] cephALEXin [Keflex] 500 mg PO Q8HR #21 cap 12/04/21 Unknown Rx oxyCODONE /ACETAMINOPHEN [Percocet 1 tab PO Q6HR PRN #12 tablet 12/04/21 Unknown Rx 5/325 mg] Allergies Allergy/AdvReac Type Severity Reaction Status Date / Time No Known Allergies Allergy Verified 11/06/21 07:37 ED Review of Systems ROS: Stated complaint: COUGHING UP BLOOD/RT FOOT PAIN Other details as noted in HPI Comment: All other systems reviewed and negative Constitutional: denies: fever Eyes: denies: vision change ENT: denies: throat pain Respiratory: see HPI Cardiovascular: denies: chest pain Endocrine: denies: unexplained weight loss Gastrointestinal: denies: abdominal pain Genitourinary: denies: dysuria Musculoskeletal: as per HPI. denies: back pain Skin: as per HPI. denies: rash Neurological: denies: headache Hematological/Lymphatic: denies: easy bruising ED Past Medical Hx - Past Medical History Hx Hypertension: Yes Hx Congestive Heart Failure: No Hx Diabetes: No Hx Asthma: No Hx COPD: No Hx HIV: No Additional medical history: Raynaud's Disease - Family History Family history: hypertension - Social History Smoking Status: Current Every Day Smoker (We discussed tobacco cessation x3 minutes) - Medications Home Medications: Home Medications Medication Instructions Recorded Confirmed Last Taken Type Ferrous Sulfate [Ferrous Sulfate 324 mg PO BID #60 tab 10/20/21 11/04/21 Unknown Rx 324 MG] Chlorthalidone [Thalitone] 25 mg PO DAILY 11/04/21 11/04/21 Unknown History amLODIPine 10 mg PO BID 11/06/21 11/06/21 Unknown History Ibuprofen [Motrin 600 MG tab] 600 mg PO Q8H PRN #30 tablet 12/04/21 Unknown Rx Sulfamethoxazole/Trimethoprim 1 each PO BID #14 12/04/21 Unknown Rx [Bactrim DS TAB] cephALEXin [Keflex] 500 mg PO Q8HR #21 cap 12/04/21 Unknown Rx oxyCODONE /ACETAMINOPHEN [Percocet 1 tab PO Q6HR PRN #12 tablet 12/04/21 Unknown Rx 5/325 mg] ED Physical Exam - General Limitations: No Limitations, Other (Pulse ox noted and normal) General appearance: alert, in no apparent distress - Head Head exam: Present: atraumatic, normocephalic - Eye Eye exam: Present: normal appearance, EOMI. Absent: scleral icterus - ENT ENT exam: Present: normal orophraynx, normal external ear exam - Neck Neck exam: Present: normal inspection. Absent: meningismus - Respiratory Respiratory exam: Present: normal lung sounds bilaterally. Absent: respiratory distress - Cardiovascular Cardiovascular Exam: Present: normal rhythm, tachycardia - GI/Abdominal GI/Abdominal exam: Present: soft. Absent: distended, tenderness - Extremities Exam Extremities exam: Present: normal capillary refill, other (There is redness with ulceration and stitches still in place involving the right 4th toe. There is tenderness in this area. There is pain with any type of range of motion. Cap refill is brisk). Absent: calf tenderness - Back Exam Back exam: Absent: CVA tenderness (R), CVA tenderness (L) - Neurological Exam Neurological exam: Present: alert, oriented X3, CN II-XII intact, normal gait. Absent: motor sensory deficit - Psychiatric Psychiatric exam: Present: normal affect, normal mood - Skin Skin exam: Present: warm, dry ED Course Vital Signs 12/04/21 07:17 Temperature 98.4 F Pulse Rate 107 H Respiratory 20 Rate Blood Pressure 163/97 [Right] O2 Sat by Pulse 94 Oximetry - Reevaluation(s) Reevaluation #1: 12/04/21 07:40 IV and labs ordered. X-rays were ordered. Records noted. Reevaluation #2: 12/04/21 10:02 Labs and x-rays were noted. Patient was discharged. ED Medical Decision Making - Lab Data Result diagrams: 12/04/21 08:21 12/04/21 08:21 - Radiology Data Radiology results: report reviewed - Medical Decision Making Patient presented with multiple issues. He had toe pain with a history of recent infection and surgery. Based on x-rays, there is no evidence of osteomyelitis. Sed rate was noted. Patient has been given Ancef and was started on Bactrim in addition to cephalosporins at home. There is evidence of a soft tissue cellulitis. There is no evidence of osteo-. I do not believe he requires admission for this. He also reported having a cough with some blood- tinged sputum. He is not anticoagulated. There is no evidence of coagulopathy. He was treated empirically for the toe infection which would cover any type of pulmonary infection if it is in fact bacterial. He certainly could have a viral pulmonary infection although that would not necessarily improve with antibiotics. The antibiotics were started for his toe infection which could be MRSA or MSSA. He does not appear to be toxic. Critical Care Time: No Critical care attestation.: If time is entered above; I have spent that time in minutes in the direct care of this critically ill patient, excluding procedure time. ED Disposition Clinical Impression: Postoperative pain, Postoperative cellulitis of surgical wound, Cough with hemoptysis Disposition: 01 HOME / SELF CARE / HOMELESS Is pt being admited?: No Condition: Stable Instructions: Wound Infection, Hemoptysis, Pain Medicine Instructions Additional Instructions: Elevate the foot. Take the antibiotics. Drink water. Use the inhaler. Follow-up with the surgeon and the on-call physician for recheck. Return for any problems. Prescriptions: Sulfamethoxazole/Trimethoprim [Bactrim DS TAB] 1 each PO BID #14 cephALEXin [Keflex] 500 mg PO Q8HR #21 cap Ibuprofen [Motrin 600 MG tab] 600 mg PO Q8H PRN #30 tablet PRN Reason: Pain oxyCODONE /ACETAMINOPHEN [Percocet 5/325 mg] 1 tab PO Q6HR PRN #12 tablet PRN Reason: Pain Referrals: PRIMARY CAREMD [Referring] - 3-5 Days JEANNE ARCHER MD [Staff Physician] - 3-5 Days AYO TOSCANO MD [Staff Physician] - 3-5 Days
--- NOTE | 2021-12-04 08:33 | XRay Report ---
CHEST 2 VIEWS INDICATION: blood tinged sputum. COMPARISON: none FINDINGS: Support devices: None. Heart: Within normal limits. Lungs/pleura: Diffuse bilateral interstitial opacities are identified which are most pronounced in th e right infrahilar region. No consolidation, pleural effusion or pneumothorax. Additional findings: None. IMPRESSION: Bilateral interstitial opacities as described. An infectious process should be considered. Viral pneu monia is not excluded. RIGHT FOOT 3 VIEWS INDICATION: Evaluate for osteoarthritis. COMPARISON: 10/20/2021 IMPRESSION: The distal phalanx of the fourth toe has been amputated since the previous exam. Technol ogyang notes that patient reports recent frostbite with subsequent amputation of the distal fourth toe . Please correlate with the patient's history. The remaining bony structures are intact. No periosti tis or bony destruction is detected to suggest osteomyelitis. No significant joint pathology. The sof t tissues are unremarkable. If further evaluation is needed, MRI preferably with IV contrast is recom mended. Signer Name: Williams Mars Jr, MD Signed: 12/04/2021 8:29 AM Workstation Name: [id number]
[2021-12-04 08:56] LABS: Basophils # (Auto) 0.1 K/mm3 (0.0-0.1); Basophils % (Auto) 0.5 % (0.0-1.8); Eosinophils # (Auto) 0.2 K/mm3 (0.0-0.4); Eosinophils % (Auto) 1.4 % (0.0-4.3); Hematocrit 28.8 % (35.5-45.6); Hemoglobin 8.7 gm/dl (11.8-15.2); Lymphocytes # (Auto) 0.9 K/mm3 (1.2-5.4); Lymphocytes % (Auto) 6.4 % (13.4-35.0); Mean Corpuscular HGB Conc 30 % (32-34); Mean Corpuscular Volume 74 fl (84-94); Monocytes # (Auto) 1.1 K/mm3 (0.0-0.8); Monocytes % (Auto) 8.5 % (0.0-7.3); Platelet Count 467 K/mm3 (140-440); Red Blood Count 3.92 M/mm3 (3.65-5.03); Red Cell Distribution Width 19.4 % (13.2-15.2)
[2021-12-04 09:09] LABS: Blood Urea Nitrogen 16 mg/dL (9-20); Calcium 8.6 mg/dL (8.4-10.2); Hemolysis Index 4
[2021-12-04 09:19] LABS: BUN/Creatinine Ratio 27
[2021-12-04 09:20] LABS: Erythrocyte Sedimentation Rate 31 mm/Hr (0-20)
[2021-12-04] MEDS ORDERED: HYDROcodone/ACETAMINOPHEN 5-325 MG TAB PO ONE (10:01)
[2021-12-04 10:16] VITALS: BP 155/92
== END 2021-12-04 10:32 | disposition home or self-care (01) ==
LOC: ED 06:48
DX: G89.18 Other acute postprocedural pain (principal); L03.115 Cellulitis of right lower limb; R04.2 Hemoptysis; I10 Essential (primary) hypertension; F17.200 Nicotine dependence, unspecified, uncomplicated; Z79.899 Other long term (current) drug therapy
CPT/HCPCS: 36415; 71046; 73630; 80048; 82140; 85025; 85652; 87040; 96374; 96375; 99284; J0690; J1885

== ENCOUNTER 2021-12-18 09:03 | Emergency (ER) | payer SELFPAY ==
--- NOTE | 2021-12-18 11:51 | Emergency Department Report ---
- General Chief Complaint: Extremity Problem,Nontraumatic Stated Complaint: RT TOE INFECTED Time Seen by Provider: 12/18/21 11:38 Source: patient Mode of arrival: Ambulatory Limitations: No Limitations - History of Present Illness Initial Comments: Chief complaint: My toe is hurting HPI: This is a 41-year-old male with history of frostbite gangrene Raynaud's syndrome hypertension who presents with pain in the right fourth toe. Patient had partial amputation of the right fourth toe in October. Followed by Dr. Archer. He finished a course of Bactrim. According to electronic medical record on November 03, 2021 patient had debridement and partial amputation of the fourth toe distal phalanx with history of frostbite and tissue necrosis. Severe pain right fourth toe. No new injury. He has follow-up with Dr. Archer on Wednesday. -: Gradual, month(s) (Several months) Extremity Location: Right: Foot Associated Symptoms: pain Treatments Prior to Arrival: other (bactrim tramadol ibuprofen) - Related Data Home Medications Medication Instructions Recorded Confirmed Last Taken amLODIPine 10 mg PO BID 11/06/21 12/18/21 12/17/21 Previous Rx's Medication Instructions Recorded Last Taken Type HYDROcodone/APAP 5-325 [[place] 1 each PO Q6HR PRN #15 tablet 12/18/21 Unknown Rx 5/325] Sulfamethoxazole/Trimethoprim 1 each PO BID 7 Days #14 12/18/21 Unknown Rx [Bactrim DS TAB] cephALEXin [Keflex] 500 mg PO Q6HR 7 Days #28 capsule 12/18/21 Unknown Rx Allergies Allergy/AdvReac Type Severity Reaction Status Date / Time No Known Allergies Allergy Verified 12/18/21 10:12 ED Review of Systems ROS: Stated complaint: RT TOE INFECTED Other details as noted in HPI Comment: All other systems reviewed and negative Constitutional: denies: chills, fever, malaise Respiratory: denies: cough, shortness of breath Cardiovascular: denies: chest pain Gastrointestinal: denies: abdominal pain, nausea, vomiting Skin: rash, lesions ED Past Medical Hx - Past Medical History Previous Medical History?: Yes Hx Hypertension: Yes Hx Congestive Heart Failure: No Hx Diabetes: No Hx Asthma: No Hx COPD: No Hx HIV: No Additional medical history: Raynaud's Disease - Surgical History Past Surgical History?: No - Social History Smoking Status: Current Every Day Smoker (We discussed tobacco cessation x3 minutes) Substance Use Type: None - Medications Home Medications: Home Medications Medication Instructions Recorded Confirmed Last Taken Type amLODIPine 10 mg PO BID 11/06/21 12/18/21 12/17/21 History HYDROcodone/APAP 5-325 [[place] 1 each PO Q6HR PRN #15 tablet 12/18/21 Unknown Rx 5/325] Sulfamethoxazole/Trimethoprim 1 each PO BID 7 Days #14 12/18/21 Unknown Rx [Bactrim DS TAB] cephALEXin [Keflex] 500 mg PO Q6HR 7 Days #28 capsule 12/18/21 Unknown Rx ED Physical Exam - General Limitations: No Limitations General appearance: alert, in no apparent distress - Head Head exam: Present: atraumatic, normocephalic - Eye Eye exam: Present: normal appearance - ENT ENT exam: Present: mucous membranes moist - Neck Neck exam: Present: normal inspection, full ROM - Respiratory Respiratory exam: Present: normal lung sounds bilaterally. Absent: respiratory distress, wheezes, rales, rhonchi - Cardiovascular Cardiovascular Exam: Present: regular rate, normal rhythm, normal heart sounds. Absent: systolic murmur, diastolic murmur, rubs, gallop - GI/Abdominal GI/Abdominal exam: Present: soft, normal bowel sounds. Absent: distended, tenderness, guarding, rebound - Rectal Rectal exam: Present: deferred - Extremities Exam Extremities exam: Present: other (Right fourth toe: healing wound, partial amputation, erythematous toe with good range of motion, normal skin color in the remainder of foot) - Back Exam Back exam: Present: normal inspection - Neurological Exam Neurological exam: Present: alert, oriented X3 - Psychiatric Psychiatric exam: Present: normal affect, normal mood - Skin Skin exam: Present: warm, dry, intact, normal color. Absent: rash ED Course Vital Signs 12/18/21 12/18/21 09:34 10:12 Temperature 98.3 F 97.6 F Pulse Rate 96 H 89 Respiratory 18 18 Rate Blood Pressure 170/109 Blood Pressure 165/89 [Right] O2 Sat by Pulse 92 95 Oximetry ED Medical Decision Making - Medical Decision Making right toe infection: rx: bactrim, keflex, norco Patient has f/u with Dr. Archer on Wednesday. Critical care attestation.: If time is entered above; I have spent that time in minutes in the direct care of this critically ill patient, excluding procedure time. ED Disposition Clinical Impression: Toe infection Disposition: HOME / SELF CARE / HOMELESS Is pt being admited?: No Does the pt Need Aspirin: No Condition: Stable Instructions: Cellulitis, Adult, [id number] Prescriptions: Sulfamethoxazole/Trimethoprim [Bactrim DS TAB] 1 each PO BID 7 Days #14 cephALEXin [Keflex] 500 mg PO Q6HR 7 Days #28 capsule HYDROcodone/APAP 5-325 [[place] 5/325] 1 each PO Q6HR PRN #15 tablet PRN Reason: Pain Referrals: JEANNE ARCHER MD [Staff Physician] - 3-5 Days
[2021-12-18 12:01] VITALS: BP 130/88
== END 2021-12-18 11:58 | disposition home or self-care (01) ==
LOC: ED 09:03
DX: L08.9 Local infection of the skin and subcutaneous tissue, unspecified (principal); I10 Essential (primary) hypertension; F17.200 Nicotine dependence, unspecified, uncomplicated
CPT/HCPCS: 99282

== ENCOUNTER 2021-12-31 07:41 | Emergency (ER) | payer SELFPAY ==
--- NOTE | 2021-12-31 11:46 | Emergency Department Report ---
ED General Adult HPI - General Chief complaint: Pain General Stated complaint: COUGHING,HARD TO BREATH Time Seen by Provider: 12/31/21 11:24 Source: patient Mode of arrival: Ambulatory Limitations: No Limitations - History of Present Illness Initial comments: 41-year-old male with a past medical history of hypertension presents to the ER today with complaints of coughing up blood and difficulty breathing. Patient states that 2 days ago he symptoms started. Patient states that his symptoms are more noticeable when he lays down, and also when he is exerting himself. He states that when he exerts himself his heart starts to race and then he starts to cough and when he lays down in the supine position his cough also gets worse. He states that for the past 2 nights his pain coughing up phlegm mixed with bright red blood. He reports mild rhinorrhea but no other URI symptoms. He denies any wheezing, lower extremity swelling or calf pain. He denies any chest pain. He denies any fever chills or night sweats. He denies any alcohol abuse or illicit drug use. He does smoke tobacco. He is not on any blood thinners. He denies similar symptoms in the past. He denies any recent travel or ill contacts. He has been vaccinated against COVID-19. MD Complaint: Hemoptysis -: days(s) (2) - Related Data Home Medications Medication Instructions Recorded Confirmed Last Taken amLODIPine 10 mg PO BID 11/06/21 12/18/21 12/17/21 Previous Rx's Medication Instructions Recorded Last Taken Type Albuterol Mdi (or & Nicu Only) 2 puff IH QID PRN #8.5 gram 12/31/21 Unknown Rx [ProAir HFA Inhaler] Azithromycin [Zithromax Z-ROCHELLE] 0 mg PO DAILY #1 pack 12/31/21 Unknown Rx predniSONE [Deltasone] 40 mg PO QDAY #10 tab 12/31/21 Unknown Rx Allergies Allergy/AdvReac Type Severity Reaction Status Date / Time No Known Allergies Allergy Verified 12/18/21 10:12 ED Review of Systems ROS: Stated complaint: COUGHING,HARD TO BREATH Other details as noted in HPI ED Past Medical Hx - Past Medical History Hx Hypertension: Yes Hx Congestive Heart Failure: No Hx Diabetes: No Hx Asthma: No Hx COPD: No Hx HIV: No Additional medical history: Raynaud's Disease - Social History Smoking Status: Current Every Day Smoker (We discussed tobacco cessation x3 minutes) Substance Use Type: None - Medications Home Medications: Home Medications Medication Instructions Recorded Confirmed Last Taken Type amLODIPine 10 mg PO BID 11/06/21 12/18/21 12/17/21 History Albuterol Mdi (or & Nicu Only) 2 puff IH QID PRN #8.5 gram 12/31/21 Unknown Rx [ProAir HFA Inhaler] Azithromycin [Zithromax Z-ROCHELLE] 0 mg PO DAILY #1 pack 12/31/21 Unknown Rx predniSONE [Deltasone] 40 mg PO QDAY #10 tab 12/31/21 Unknown Rx ED Physical Exam - General Limitations: No Limitations General appearance: alert, in no apparent distress - Head Head exam: Present: atraumatic, normocephalic, normal inspection - Eye Eye exam: Present: normal appearance, PERRL, EOMI Pupils: Present: normal accommodation - Neck Neck exam: Present: normal inspection, full ROM. Absent: meningismus - Respiratory Respiratory exam: Present: normal lung sounds bilaterally. Absent: respiratory distress, wheezes, rales, rhonchi - Cardiovascular Cardiovascular Exam: Present: regular rate, normal rhythm, normal heart sounds - GI/Abdominal GI/Abdominal exam: Present: soft. Absent: distended, tenderness, guarding, rebound, rigid - Extremities Exam Extremities exam: Present: normal inspection, full ROM. Absent: pedal edema, calf tenderness - Neurological Exam Neurological exam: Present: alert, oriented X3, CN II-XII intact, normal gait - Psychiatric Psychiatric exam: Present: normal affect, normal mood ED Course Vital Signs 12/31/21 12/31/21 08:51 14:39 Temperature 98 F Pulse Rate 94 H 88 Respiratory 16 16 Rate Blood Pressure 146/93 138/88 [Left] O2 Sat by Pulse 94 94 Oximetry ED Medical Decision Making - Lab Data Result diagrams: 12/31/21 12:11 12/31/21 12:11 - EKG Data EKG shows normal: sinus rhythm Rate: normal (56) No standard instances Filer/QRS: LBBB (incomplete) Voltage: C/W LVH - EKG Data Interpretation: LVH - Radiology Data Radiology results: report reviewed Patient: BOUBACAR APARICIO MR#: [id number] : 1980 Acct:[id number] Age/Sex: 41 / M ADM Date: 12/31/21 Loc: ED Attending Dr: Ordering Physician: MARK CHAMPAGNE Date of Service: 12/31/21 Procedure(s): XR chest routine 2V Accession Number(s): [id number] cc: MARK CHAMPAGNE Fluoro Time In Minutes: CHEST 2 VIEWS INDICATION: hemoptysis. COMPARISON: 12/04/2021 FINDINGS: Support devices: None. Heart: Within normal limits. Lungs/pleura: Diffuse interstitial prominence seen in the lungs has resolved or nearly resolved since the previous exam. No evidence for acute infiltrate, pleural fluid or pneumothorax. Additional findings: None. IMPRESSION: No acute findings. Significant improvement in the bilateral lung opacities since 12/04/2021. Signer Name: Williams Mars Jr, MD Signed: 12/31/2021 12:39 PM Workstation Name: [id number] Transcribed By: TTR Dictated By: WILLIAMS MARS JR, MD Electronically Authenticated By: WILLIAMS MARS JR, MD Signed Date/Time: 12/31/21 1239 DD/ 1238 TD/TT: - Medical Decision Making 41-year-old male with a past medical history of hypertension presents to the ER today with complaints of coughing up blood and difficulty breathing. Patient states that 2 days ago he symptoms started. Patient states that his symptoms are more noticeable when he lays down, and also when he is exerting himself. He states that when he exerts himself his heart starts to race and then he starts to cough and when he lays down in the supine position his cough also gets worse. He states that for the past 2 nights his pain coughing up phlegm mixed with bright red blood. He reports mild rhinorrhea but no other URI symptoms. He denies any wheezing, lower extremity swelling or calf pain. He denies any chest pain. He denies any fever chills or night sweats. He denies any alcohol abuse or illicit drug use. He does smoke tobacco. He is not on any blood thinners. He denies similar symptoms in the past. He denies any recent travel or ill contacts. He has been vaccinated against COVID-19 1448: cxr shows resolution of prior opacities and no other acute abnormalities. CBC and CMP shows no significant abnormality. D-dimer was normal. EKG show no STEMI or sig dysrhythmias. Patient currently sitting on the recliner and he is not in any acute pain or respiratory distress. He ambulates well in the ER with a normal gait and no evidence of respiratory distress or complaints of shortness of breath. He has no chest pain. Patient hemoptysis could be related to acute bronchitis. At this time I do not suspect unstable angina, pulmonary embolus, aortic dissection, or any other emergent conditions warranting additional testing or admission to the hospital. Discussed results with patient. Also encouraged that he stop smoking. Recommend follow-up with his primary care doctor but in the meantime we will give him medications to help with symptoms. Patient expressed understanding agree with plan. Patient was stable at time of discharge. Critical care attestation.: If time is entered above; I have spent that time in minutes in the direct care of this critically ill patient, excluding procedure time. ED Disposition Clinical Impression: Acute bronchitis, Hemoptysis, unspecified Disposition: 01 HOME / SELF CARE / HOMELESS Is pt being admited?: No Does the pt Need Aspirin: No Condition: Stable Instructions: Hemoptysis, Yshn-[id number], Acute Bronchitis, Adult, [id number]-[id number], Acute Bronchitis (ED) Additional Instructions: I recommend taking the zithromax, the prednisone and using the albuterol MDI as prescribed. You can take the tessalon perles to help with cough. Follow up with your Primary care physician this week or next. Return to ED if worse Prescriptions: predniSONE [Deltasone] 40 mg PO QDAY #10 tab Albuterol Mdi (or & Nicu Only) [ProAir HFA Inhaler] 2 puff IH QID PRN #8.5 gram PRN Reason: Shortness Of Breath Azithromycin [Zithromax Z-ROCHELLE] 0 mg PO DAILY #1 pack Referrals: PRIMITIVO MORALES MD [Primary Care Provider] - 3-5 Days Time of Disposition: 14:32
[2021-12-31 12:41] LABS: Basophils % (Auto) 0.6 % (0.0-1.8); Eosinophils # (Auto) 0.2 K/mm3 (0.0-0.4); Eosinophils % (Auto) 2.8 % (0.0-4.3); Hematocrit 33.1 % (35.5-45.6); Hemoglobin 10.6 gm/dl (11.8-15.2); Lymphocytes # (Auto) 1.3 K/mm3 (1.2-5.4); Lymphocytes % (Auto) 16.1 % (13.4-35.0); Mean Corpuscular HGB Conc 32 % (32-34); Mean Corpuscular Volume 76 fl (84-94); Monocytes % (Auto) 12.8 % (0.0-7.3); Platelet Count 292 K/mm3 (140-440); Red Blood Count 4.38 M/mm3 (3.65-5.03); Red Cell Distribution Width 21.9 % (13.2-15.2)
--- NOTE | 2021-12-31 12:44 | XRay Report ---
CHEST 2 VIEWS INDICATION: hemoptysis. COMPARISON: 12/04/2021 FINDINGS: Support devices: None. Heart: Within normal limits. Lungs/pleura: Diffuse interstitial prominence seen in the lungs has resolved or nearly resolved since the previous exam. No evidence for acute infiltrate, pleural fluid or pneumothorax. Additional findings: None. IMPRESSION: No acute findings. Significant improvement in the bilateral lung opacities since 12/04/2021. Signer Name: Williams Mars Jr, MD Signed: 12/31/2021 12:39 PM Workstation Name: [id number]
[2021-12-31 13:10] LABS: Alanine Aminotransferase 14 units/L (7-56); Albumin 4.1 g/dL (3.9-5); Blood Urea Nitrogen 15 mg/dL (9-20); Calcium 9.5 mg/dL (8.4-10.2); Hemolysis Index 37
[2021-12-31 13:11] LABS: BUN/Creatinine Ratio 21
[2021-12-31 14:40] VITALS: BP 138/88
--- NOTE | 2022-01-01 11:25 | Electrocardiograph Report ---
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
== END 2021-12-31 14:40 | disposition home or self-care (01) ==
LOC: ED 07:41
DX: J20.9 Acute bronchitis, unspecified (principal); R04.2 Hemoptysis; I10 Essential (primary) hypertension; F17.200 Nicotine dependence, unspecified, uncomplicated
CPT/HCPCS: 36415; 71046; 80053; 85025; 85379; 93005; 99283

== ENCOUNTER 2022-02-02 02:24 | Inpatient (IN) | payer SELFPAY ==
[2022-02-02] MEDS ORDERED: FUROSEMIDE 40 MG/4 ML INJ IV ONE (03:39)
--- NOTE | 2022-02-02 03:39 | Emergency Department Report ---
ED Shortness of Breath HPI - General Chief Complaint: Dyspnea/Respdistress Stated Complaint: GEETHA Time Seen by Provider: 02/02/22 03:30 Source: patient Mode of arrival: Stretcher Limitations: No Limitations - History of Present Illness Initial Comments: Patient is 41 years old male with history of heart failure and hypertension. Patient brought to the emergency room via EMS from home for evaluation of shortness of breath and difficulty in breathing. EMS reported that patient initial oxygen saturation was 68% on room air improved to 96% on 4 L. Patient stated that he was admitted to [facility] last month for congestive heart failure. He denied any fever or chills. MD Complaint: shortness of breath -: Last night Known History Of: congestive heart failure Associated Symptoms: chest pain Treatments Prior to Arrival: oxygen - Related Data Home Medications Medication Instructions Recorded Confirmed Last Taken amLODIPine 10 mg PO BID 11/06/21 12/18/21 12/17/21 Previous Rx's Medication Instructions Recorded Last Taken Type Albuterol Mdi (or & Nicu Only) 2 puff IH QID PRN #8.5 gram 12/31/21 Unknown Rx [ProAir HFA Inhaler] Azithromycin [Zithromax Z-ROCHELLE] 0 mg PO DAILY #1 pack 12/31/21 Unknown Rx predniSONE [Deltasone] 40 mg PO QDAY #10 tab 12/31/21 Unknown Rx Allergies Allergy/AdvReac Type Severity Reaction Status Date / Time No Known Allergies Allergy Verified 12/18/21 10:12 ED Review of Systems ROS: Stated complaint: GEETHA Other details as noted in HPI Comment: All other systems reviewed and negative Constitutional: denies: chills, fever Respiratory: orthopnea, shortness of breath, SOB with exertion, SOB at rest. denies: cough, wheezing Cardiovascular: chest pain Gastrointestinal: denies: abdominal pain, nausea, vomiting, diarrhea, constipation, hematemesis, melena Musculoskeletal: denies: back pain ED Past Medical Hx - Past Medical History Previous Medical History?: Yes Hx Hypertension: Yes Hx Congestive Heart Failure: No Hx Diabetes: No Hx Asthma: No Hx COPD: No Hx HIV: No Additional medical history: Raynaud's Disease. Drug User. - Surgical History Past Surgical History?: Yes Additional Surgical History: Right foot - Social History Smoking Status: Never Smoker Substance Use Type: None - Medications Home Medications: Home Medications Medication Instructions Recorded Confirmed Last Taken Type amLODIPine 10 mg PO BID 11/06/21 12/18/21 12/17/21 History Albuterol Mdi (or & Nicu Only) 2 puff IH QID PRN #8.5 gram 12/31/21 Unknown Rx [ProAir HFA Inhaler] Azithromycin [Zithromax Z-ROCHELLE] 0 mg PO DAILY #1 pack 12/31/21 Unknown Rx predniSONE [Deltasone] 40 mg PO QDAY #10 tab 12/31/21 Unknown Rx ED Physical Exam - General Limitations: No Limitations General appearance: alert, in distress - Head Head exam: Present: atraumatic, normocephalic, normal inspection - Eye Eye exam: Present: normal appearance - ENT ENT exam: Present: normal exam, normal orophraynx, mucous membranes moist - Neck Neck exam: Present: normal inspection, full ROM. Absent: tenderness, meningismus - Respiratory Respiratory exam: Present: respiratory distress, rales, decreased breath sounds. Absent: wheezes - Cardiovascular Cardiovascular Exam: Present: regular rate, normal rhythm, normal heart sounds - GI/Abdominal GI/Abdominal exam: Present: soft, normal bowel sounds. Absent: distended, t enderness, guarding, rebound, rigid, mass, bruit, pulsatile mass, hernia - Extremities Exam Extremities exam: Present: normal inspection, full ROM, normal capillary refill. Absent: pedal edema, calf tenderness - Back Exam Back exam: Present: normal inspection, full ROM. Absent: CVA tenderness (R), CVA tenderness (L) - Neurological Exam Neurological exam: Present: alert, oriented X3, CN II-XII intact, normal gait - Psychiatric Psychiatric exam: Present: normal mood - Skin Skin exam: Present: warm, intact, normal color ED Course Vital Signs 02/02/22 03:07 Temperature 98.6 F Pulse Rate 97 H Respiratory 18 Rate Blood Pressure 140/87 O2 Sat by Pulse 100 Oximetry ED Medical Decision Making - Lab Data Result diagrams: 02/02/22 03:49 02/02/22 03:49 - EKG Data -: EKG Interpreted by Md EKG shows normal: sinus rhythm Rate: normal - EKG Data Interpretation: no acute changes - Radiology Data Radiology results: report reviewed - Medical Decision Making Patient is 41 years old male with history of heart failure and hypertension. Patient brought to the emergency room via EMS from home for evaluation of shortness of breath and difficulty in breathing. EMS reported that patient initial oxygen saturation was 68% on room air improved to 96% on 4 L. Patient stated that he was admitted to [facility] last month for congestive heart failure. He denied any fever or chills. EKG is unremarkable. Labs reviewed and showed elevated BNP and troponin. Chest x-ray showed pleural effusion and pulmonary edema. Patient received Lasix 40 mg IV. I discussed the patient with Dr. Matthews, he agreed to admit the patient to medical service for further management. Critical Care Time: Yes Critical care time in (mins) excluding proc time.: 35 Critical care attestation.: If time is entered above; I have spent that time in minutes in the direct care of this critically ill patient, excluding procedure time. ED Disposition Clinical Impression: Acute exacerbation of CHF (congestive heart failure), Acute respiratory failure with hypoxia, Elevated troponin Disposition: ADMITTED INPATIENT Is pt being admited?: Yes Condition: Stable
--- NOTE | 2022-02-02 04:10 | XRay Report ---
CHEST 1 VIEW 02/02/2022 3:03 AM INDICATION / CLINICAL INFORMATION: Dyspnea. Hypertension. Hypoxia. COMPARISON: 2 views of the chest from 12/31/2021. FINDINGS: SUPPORT DEVICES: None. HEART / MEDIASTINUM: No significant abnormality. LUNGS / PLEURA: Generalized bilateral pulmonary opacities are noted. No significant pleural effusion. No pneumothorax. ADDITIONAL FINDINGS: No significant additional findings. IMPRESSION: Probable bilateral edema versus atelectasis. No other acute findings. Signer Name: Tu Robertson MD Signed: 02/02/2022 4:05 AM Workstation Name: [id number]
[2022-02-02 04:25] LABS: Basophils % (Auto) 0.4 % (0.0-1.8); Eosinophils # (Auto) 0.3 K/mm3 (0.0-0.4); Eosinophils % (Auto) 2.2 % (0.0-4.3); Hematocrit 26.3 % (35.5-45.6); Hemoglobin 7.9 gm/dl (11.8-15.2); Lymphocytes # (Auto) 0.9 K/mm3 (1.2-5.4); Lymphocytes % (Auto) 6.6 % (13.4-35.0); Mean Corpuscular HGB Conc 30 % (32-34); Mean Corpuscular Volume 73 fl (84-94); Monocytes # (Auto) 1.4 K/mm3 (0.0-0.8); Platelet Count 406 K/mm3 (140-440); Red Blood Count 3.58 M/mm3 (3.65-5.03); Red Cell Distribution Width 18.9 % (13.2-15.2)
[2022-02-02 04:39] LABS: BUN/Creatinine Ratio 21; Blood Urea Nitrogen 19 mg/dL (9-20); Calcium 8.8 mg/dL (8.4-10.2); Hemolysis Index 0
[2022-02-02 04:43] LABS: Alanine Aminotransferase 16 units/L (7-56); Albumin 3.7 g/dL (3.9-5)
[2022-02-02 04:45] LABS: Bilirubin,Direct < 0.2 mg/dL (0-0.2)
[2022-02-02 05:14] LABS: Chol/HDL Ratio 5.78 %; HDL Cholesterol 19 mg/dL (40-59); LDL Cholesterol,Direct 70 mg/dL (50-130)
[2022-02-02] MEDS ORDERED: ACETAMINOPHEN 325 MG TAB PO PRN (05:42)
[2022-02-02] MEDS ORDERED: MORPHINE 2 MG/1 ML INJ IV PRN (05:42)
[2022-02-02] MEDS ORDERED: ONDANSETRON 4 MG/2 ML INJ IV PRN (05:42)
[2022-02-02] MEDS ORDERED: ALBUTEROL 2.5 MG/3 ML NEBU IH PRN (05:42)
[2022-02-02] MEDS ORDERED: HYDROmorphone 1 MG/1 ML INJ IV PRN (05:42)
--- NOTE | 2022-02-02 05:51 | History and Physical Report ---
History of Present Illness Date of examination: 02/02/22 Date of admission: 02/02/22 Chief complaint: Shortness of breath History of present illness: 41 years old male with history of heart failure and hypertension was brought to the emergency room via EMS from home for evaluation of shortness of breath and difficulty in breathing. patient initial oxygen saturation was 68% on room air improved to 96% on 4 L. Patient stated that he was admitted to [facility] last month for congestive heart failure. He denied any fever or chills. In the emergency room patient EKG is unremarkable. Labs reviewed and showed elevated BNP and troponin. Chest x-ray showed pleural effusion and pulmonary edema. Still going to admit the patient we will put the patient on aspirin Lipitor and IV Lasix and order echocardiogram Past History Past Medical History: heart failure, hypertension, other (Raynaud's Disease. Drug User.) Past Surgical History: Other (Right foot) Social history: other (Drug abuse) Family history: hypertension Medications and Allergies Allergies Allergy/AdvReac Type Severity Reaction Status Date / Time No Known Allergies Allergy Verified 12/18/21 10:12 Home Medications Medication Instructions Recorded Confirmed Last Taken Type amLODIPine 10 mg PO BID 11/06/21 12/18/21 12/17/21 History Albuterol Mdi (or & Nicu Only) 2 puff IH QID PRN #8.5 gram 12/31/21 Unknown Rx [ProAir HFA Inhaler] Azithromycin [Zithromax Z-ROCHELLE] 0 mg PO DAILY #1 pack 12/31/21 Unknown Rx predniSONE [Deltasone] 40 mg PO QDAY #10 tab 12/31/21 Unknown Rx Active Meds: Active Medications Acetaminophen (Acetaminophen 325 Mg Tab) 650 mg PO Q4H PRN PRN Reason: Pain MILD(1-3)/Fever >100.5/[place] Albuterol (Albuterol 2.5 Mg/3 Ml Nebu) 2.5 mg IH Q3HRT PRN PRN Reason: Shortness Of Breath Albuterol/Ipratropium (Ipratropium/Albuterol Sulfate 3 Ml Ampul.Neb) 1 ampul IH Q6HRT MARY Amlodipine Besylate (Amlodipine 10 Mg Tab) 10 mg PO BID MARY Azithromycin (Azithromycin 250 Mg Tab) 250 mg PO DAILY MARY; Protocol Famotidine (Famotidine 20 Mg Tab) 20 mg PO BID MARY Furosemide (Furosemide 40 Mg/4 Ml Inj) 40 mg IV BID@0600,1800 [facility] Heparin Sodium (Porcine) (Heparin 5,000 Unit/1 Ml Vial) 5,000 unit SUB-Q Q12HR [facility] Hydromorphone HCl (Hydromorphone 1 Mg/1 Ml Inj) 0.5 mg IV Q3H PRN PRN Reason: Pain , Severe (7-10) Morphine Sulfate (Morphine 2 Mg/1 Ml Inj) 2 mg IV Q4H PRN PRN Reason: Pain, Moderate (4-6) Ondansetron HCl (Ondansetron 4 Mg/2 Ml Inj) 4 mg IV Q8H PRN PRN Reason: Nausea And Vomiting Sodium Chloride (Sodium Chloride 0.9% 10 Ml Flush Syringe) 10 ml IV BID MARY Sodium Chloride (Sodium Chloride 0.9% 10 Ml Flush Syringe) 10 ml IV PRN PRN PRN Reason: LINE FLUSH Review of Systems All systems: negative Cardiovascular: orthopnea, edema, shortness of breath, dyspnea on exertion, paroxysmal nocturnal dyspnea Respiratory: shortness of breath, dyspnea on exertion Exam - Constitutional Vitals: Temp Pulse Resp BP Pulse Ox 98.6 F 97 H 18 140/87 100 02/02/22 03:07 02/02/22 03:07 02/02/22 03:07 02/02/22 03:07 02/02/22 03:07 General appearance: Present: no acute distress, well-nourished - EENT Eyes: Present: PERRL ENT: hearing intact, clear oral mucosa - Neck Neck: Present: supple, normal ROM - Respiratory Respiratory effort: normal Respiratory: bilateral: rales - Cardiovascular Heart Sounds: Present: S1 & S2. Absent: rub, click - Extremities Extremities: pulses symmetrical, No edema Peripheral Pulses: within normal limits - Abdominal General gastrointestinal: Present: soft, non-tender, non-distended, normal bowel sounds Male genitourinary: Present: normal - Integumentary Integumentary: Present: clear, warm, dry - Musculoskeletal Musculoskeletal: gait normal, strength equal bilaterally - Psychiatric Psychiatric: appropriate mood/affect, intact judgment & insight - Neurologic Neurologic: CNII-XII intact, moves all extremities HEART Score - HEART Score Troponin: Troponin T 0.062 ng/mL (0.00-0.029) H 02/02/22 03:49 Results - Labs CBC & Chem 7: 02/02/22 03:49 02/02/22 03:49 Labs: Laboratory Last Values WBC 13.9 K/mm3 (4.5-11.0) H 02/02/22 03:49 RBC 3.58 M/mm3 (3.65-5.03) L 02/02/22 03:49 Hgb 7.9 gm/dl (11.8-15.2) L 02/02/22 03:49 Hct 26.3 % (35.5-45.6) L 02/02/22 03:49 MCV 73 fl (84-94) L 02/02/22 03:49 MCH 22 pg (28-32) L 02/02/22 03:49 MCHC 30 % (32-34) L 02/02/22 03:49 RDW 18.9 % (13.2-15.2) H 02/02/22 03:49 Plt Count 406 K/mm3 (140-440) 02/02/22 03:49 Lymph % (Auto) 6.6 % (13.4-35.0) L 02/02/22 03:49 [place] % (Auto) 10.0 % (0.0-7.3) H 02/02/22 03:49 Eos % (Auto) 2.2 % (0.0-4.3) 02/02/22 03:49 Baso % (Auto) 0.4 % (0.0-1.8) 02/02/22 03:49 Lymph # (Auto) 0.9 K/mm3 (1.2-5.4) L 02/02/22 03:49 [place] # (Auto) 1.4 K/mm3 (0.0-0.8) H 02/02/22 03:49 Eos # (Auto) 0.3 K/mm3 (0.0-0.4) 02/02/22 03:49 Baso # (Auto) 0.0 K/mm3 (0.0-0.1) 02/02/22 03:49 Seg Neutrophils % 80.8 % (40.0-70.0) H 02/02/22 03:49 Seg Neutrophils # 11.2 K/mm3 (1.8-7.7) H 02/02/22 03:49 Sodium 139 mmol/L (137-145) 02/02/22 03:49 Potassium 4.0 mmol/L (3.6-5.0) 02/02/22 03:49 Chloride 101.5 mmol/L (98-107) 02/02/22 03:49 Carbon Dioxide 26 mmol/L (22-30) 02/02/22 03:49 Anion Gap 16 mmol/L 02/02/22 03:49 BUN 19 mg/dL (9-20) 02/02/22 03:49 Creatinine 0.9 mg/dL (0.8-1.3) 02/02/22 03:49 Estimated GFR > 60 ml/min 02/02/22 03:49 BUN/Creatinine Ratio 21 % 02/02/22 03:49 Glucose 142 mg/dL (75-100) H 02/02/22 03:49 Calcium 8.8 mg/dL (8.4-10.2) 02/02/22 03:49 Total Bilirubin 0.30 mg/dL (0.1-1.2) 02/02/22 03:49 Direct Bilirubin < 0.2 mg/dL (0-0.2) 02/02/22 03:49 Indirect Bilirubin 0.1 mg/dL 02/02/22 03:49 AST 38 units/L (5-40) 02/02/22 03:49 ALT 16 units/L (7-56) 02/02/22 03:49 Alkaline Phosphatase 87 units/L (35-129) 02/02/22 03:49 Troponin T 0.062 ng/mL (0.00-0.029) H 02/02/22 03:49 NT-Pro-B Natriuret Pep 476.0 pg/mL (0-450) H 02/02/22 03:49 Total Protein 7.0 g/dL (6.3-8.2) 02/02/22 03:49 Albumin 3.7 g/dL (3.9-5) L 02/02/22 03:49 Albumin/Globulin Ratio 1.1 % 02/02/22 03:49 Triglycerides 158 mg/dL (2-149) H 02/02/22 03:49 Cholesterol 110 mg/dL (50-199) 02/02/22 03:49 LDL Cholesterol Direct 70 mg/dL (50-130) 02/02/22 03:49 HDL Cholesterol 19 mg/dL (40-59) L 02/02/22 03:49 Cholesterol/HDL Ratio 5.78 % 02/02/22 03:49 - Imaging and Cardiology Chest x-ray: report reviewed Assessment and Plan VTE prophylaxis?: Chemical Plan of care discussed with patient/family: Yes - Patient Problems (1) Acute exacerbation of CHF (congestive heart failure) Current Visit: Yes Status: Acute Plan to address problem: Admit the patient to the medical telemetry. Cardiac diet. Fluid restriction. Maintain input output. Lasix 40 mg IV every 12 hours. Echocardiogram. Cardiology evaluation (2) Acute respiratory failure with hypoxia Current Visit: Yes Status: Acute Plan to address problem: Oxygen by nasal cannula 3 L/min. DuoNeb by nebulizer every 4 hours. Albuterol via nebulizer every 4 hours as needed (3) Elevated troponin Current Visit: Yes Status: Acute Plan to address problem: Aspirin 325 mg p.o. daily. Lipitor 40 mg p.o. daily. Nitroglycerin as needed. Serial cardiac enzymes. Echocardiogram. Cardiology evaluation (4) Hypertension Current Visit: Yes Status: Acute Plan to address problem: Hydralazine 10 mg IV every 6 hours as needed. Amlodipine 10 mg p.o. daily. (5) DVT prophylaxis Current Visit: No Status: Acute Plan to address problem: Heparin 5000 units subcu every 12 hours for DVT prophylaxis. Pepcid 20 mg p.o. twice daily for GI prophylaxis. Patient is a full code
[2022-02-02] MEDS ORDERED: hydrALAZINE 20 MG/1 ML INJ IV PRN (05:53)
[2022-02-02] MEDS: FUROSEMIDE 40 MG/4 ML INJ IV SCH ×2 (06:00→17:26)
[2022-02-02] MEDS: IPRATROPIUM/ALBUTEROL SULFATE 3 ML AMPUL.NEB IH SCH ×3 (09:54→20:36)
[2022-02-02] MEDS ORDERED: AZITHROMYCIN 250 MG TAB PO SCH (10:00)
[2022-02-02] MEDS ORDERED: amLODIPine 10 MG TAB PO SCH (10:00)
--- NOTE | 2022-02-02 10:01 | Progress Note ---
Assessment and Plan Assessment and plan: -- Acute exacerbation of CHF (congestive heart failure) Current Visit: Yes Status: Acute Diuretics, input output monitoring, low-sodium diet, fluid restriction Echocardiogram for LV function ejection fraction, cardiology consulted --Acute respiratory failure with hypoxia Current Visit: Yes Status: Acute Oxygen by nasal cannula 3 L/min. DuoNeb by nebulizer every 4 hours. Albuterol via nebulizer every 4 hours as needed Treat underlying CHF, home O2 evaluation at discharge --non-ST elevation [place] Current Visit: Yes Status: Acute Aspirin 325 mg p.o. daily. Lipitor 40 mg p.o. daily. Beta-blockers nitroglyce rin as needed. Serial cardiac enzymes. Echocardiogram. Cardiology evaluation --Hypertension Current Visit: Yes Status: Acute Hydralazine 10 mg IV every 6 hours as needed. Amlodipine 10 mg p.o. daily. Closely monitor blood pressures adjust as needed --Polysubstance abuse. Tobacco, alcohol, recreational drugs Strongly advised to quit alcohol and recreational drugs Smoking cessation counseling done Follow urine toxicology --Full CODE STATUS; --DVT prophylaxis Current Visit: No Status: Acute Heparin 5000 units subcu every 12 hours for DVT prophylaxis. Follow cardiology evaluation recommendations Closely monitor the patient and adjust management as needed Plan of care reviewed with the patient and his nurse Nurse reports that patient complains of hemoptysis. However when we last to collect and show it, patient did not We will check CTA chest to rule out any lung lesions Consider pulmonary consult if needed Prolonged care inpatient service Total time spent 35 minutes History Interval history: I have seen and examined the patient at the bedside Patient's chart and medications reviewed Patient complains of mild shortness of breath Denies chest pain Vital signs noted Hospitalist Physical - Constitutional Vitals: Temp Pulse Resp BP Pulse Ox 98.7 F 88 18 132/71 95 02/02/22 08:21 02/02/22 09:55 02/02/22 09:55 02/02/22 08:21 02/02/22 09:59 General appearance: Present: no acute distress, well-nourished - EENT Eyes: Present: PERRL, EOM intact - Neck Neck: Present: supple, normal ROM - Respiratory Respiratory effort: normal Respiratory: bilateral: diminished, negative: rales, rhonchi, wheezing - Cardiovascular Rhythm: regular Heart Sounds: Present: S1 & S2 - Extremities Extremities: no ischemia, No edema - Abdominal General gastrointestinal: soft, non-tender, non-distended, normal bowel sounds - Integumentary Integumentary: Present: clear, warm - Psychiatric Psychiatric: appropriate mood/affect, cooperative - Neurologic Neurologic: moves all extremities HEART Score - HEART Score Troponin: Troponin T 0.065 ng/mL (0.00-0.029) H 02/02/22 06:36 Results - Labs CBC & Chem 7: 02/02/22 03:49 02/02/22 03:49 Labs: Laboratory Last Values WBC 13.9 K/mm3 (4.5-11.0) H 02/02/22 03:49 RBC 3.58 M/mm3 (3.65-5.03) L 02/02/22 03:49 Hgb 7.9 gm/dl (11.8-15.2) L 02/02/22 03:49 Hct 26.3 % (35.5-45.6) L 02/02/22 03:49 MCV 73 fl (84-94) L 02/02/22 03:49 MCH 22 pg (28-32) L 02/02/22 03:49 MCHC 30 % (32-34) L 02/02/22 03:49 RDW 18.9 % (13.2-15.2) H 02/02/22 03:49 Plt Count 406 K/mm3 (140-440) 02/02/22 03:49 Lymph % (Auto) 6.6 % (13.4-35.0) L 02/02/22 03:49 [place] % (Auto) 10.0 % (0.0-7.3) H 02/02/22 03:49 Eos % (Auto) 2.2 % (0.0-4.3) 02/02/22 03:49 Baso % (Auto) 0.4 % (0.0-1.8) 02/02/22 03:49 Lymph # (Auto) 0.9 K/mm3 (1.2-5.4) L 02/02/22 03:49 [place] # (Auto) 1.4 K/mm3 (0.0-0.8) H 02/02/22 03:49 Eos # (Auto) 0.3 K/mm3 (0.0-0.4) 02/02/22 03:49 Baso # (Auto) 0.0 K/mm3 (0.0-0.1) 02/02/22 03:49 Seg Neutrophils % 80.8 % (40.0-70.0) H 02/02/22 03:49 Seg Neutrophils # 11.2 K/mm3 (1.8-7.7) H 02/02/22 03:49 Sodium 139 mmol/L (137-145) 02/02/22 03:49 Potassium 4.0 mmol/L (3.6-5.0) 02/02/22 03:49 Chloride 101.5 mmol/L (98-107) 02/02/22 03:49 Carbon Dioxide 26 mmol/L (22-30) 02/02/22 03:49 Anion Gap 16 mmol/L 02/02/22 03:49 BUN 19 mg/dL (9-20) 02/02/22 03:49 Creatinine 0.9 mg/dL (0.8-1.3) 02/02/22 03:49 Estimated GFR > 60 ml/min 02/02/22 03:49 BUN/Creatinine Ratio 21 % 02/02/22 03:49 Glucose 142 mg/dL (75-100) H 02/02/22 03:49 Calcium 8.8 mg/dL (8.4-10.2) 02/02/22 03:49 Total Bilirubin 0.30 mg/dL (0.1-1.2) 02/02/22 03:49 Direct Bilirubin < 0.2 mg/dL (0-0.2) 02/02/22 03:49 Indirect Bilirubin 0.1 mg/dL 02/02/22 03:49 AST 38 units/L (5-40) 02/02/22 03:49 ALT 16 units/L (7-56) 02/02/22 03:49 Alkaline Phosphatase 87 units/L (35-129) 02/02/22 03:49 Troponin T 0.065 ng/mL (0.00-0.029) H 02/02/22 06:36 NT-Pro-B Natriuret Pep 476.0 pg/mL (0-450) H 02/02/22 03:49 Total Protein 7.0 g/dL (6.3-8.2) 02/02/22 03:49 Albumin 3.7 g/dL (3.9-5) L 02/02/22 03:49 Albumin/Globulin Ratio 1.1 % 02/02/22 03:49 Triglycerides 158 mg/dL (2-149) H 02/02/22 03:49 Cholesterol 110 mg/dL (50-199) 02/02/22 03:49 LDL Cholesterol Direct 70 mg/dL (50-130) 02/02/22 03:49 HDL Cholesterol 19 mg/dL (40-59) L 02/02/22 03:49 Cholesterol/HDL Ratio 5.78 % 02/02/22 03:49 Active Medications - Current Medications Current Medications: Generic Name Dose Route Start Last Admin Trade Name Freq PRN Reason Stop Dose Admin Acetaminophen 650 mg 02/02/22 05:42 Acetaminophen 325 Mg Tab PO Q4H PRN Pain MILD(1-3)/Fever >100.5/[place] Albuterol 2.5 mg 02/02/22 05:42 Albuterol 2.5 Mg/3 Ml Nebu IH Q3HRT PRN Shortness Of Breath Albuterol/Ipratropium 1 ampul 02/02/22 08:00 02/02/22 09:54 Ipratropium/Albuterol Sulfate 3 Ml Ampul.Neb IH 1 ampul Q6HRT [facility] Administration Amlodipine Besylate 10 mg 02/02/22 10:00 Amlodipine 10 Mg Tab PO DAILY [facility] Aspirin 325 mg 02/02/22 10:00 Aspirin Ec 325 Mg Tab PO QDAY [facility] Atorvastatin Calcium 40 mg 02/02/22 22:00 Atorvastatin 40 Mg Tab PO QHS [facility] Azithromycin 250 mg 02/02/22 10:00 Azithromycin 250 Mg Tab PO DAILY [facility] Protocol Famotidine 20 mg 02/02/22 10:00 Famotidine 20 Mg Tab PO BID [facility] Furosemide 40 mg 02/02/22 06:00 02/02/22 06:00 Furosemide 40 Mg/4 Ml Inj IV 40 mg BID@0600,1800 [facility] Administration Heparin Sodium (Porcine) 5,000 unit 02/02/22 10:00 Heparin 5,000 Unit/1 Ml Vial SUB-Q Q12HR [facility] Hydralazine HCl 10 mg 02/02/22 05:53 Hydralazine 20 Mg/1 Ml Inj IV Q6H PRN Blood Pressure Hydromorphone HCl 0.5 mg 02/02/22 05:42 Hydromorphone 1 Mg/1 Ml Inj IV Q3H PRN Pain , Severe (7-10) Morphine Sulfate 2 mg 02/02/22 05:42 Morphine 2 Mg/1 Ml Inj IV Q4H PRN Pain, Moderate (4-6) Ondansetron HCl 4 mg 02/02/22 05:42 Ondansetron 4 Mg/2 Ml Inj IV Q8H PRN Nausea And Vomiting Sodium Chloride 10 ml 02/02/22 10:00 Sodium Chloride 0.9% 10 Ml Flush Syringe IV BID MARY Sodium Chloride 10 ml 02/02/22 05:42 Sodium Chloride 0.9% 10 Ml Flush Syringe IV PRN PRN LINE FLUSH
--- NOTE | 2022-02-02 11:48 | Consultation ---
History of Present Illness Consult date: 02/02/22 Requesting physician: AMELIA CASTANEDA Consult reason: elevated troponin History of present illness: Patient is a 42-year-old male with a past medical history of hypertension, Raynaud's syndrome, and tobacco abuse who presented to the ED with a complaint of coughing up blood which occurred last night. Patient states he was lying in bed when suddenly he woke up started coughing and stated he had bright red blood with several clots inside of his blood. Patient came to his [facility] for further evaluation. Patient reports some discomfort with deep breathing. Patient states he was not at [facility] and has no diagnosis of congestive heart failure. Patient denies any complaint of chest pain, nausea, vomiting, diaphoresis, shortness of breath, PND, dyspnea on exertion, or palpitations. Patient is previously unknown to our practice. Cardiology is consulted for elevated troponins. Past History Past Medical History: hypertension, other (Raynaud's Disease. Drug User.) Past Surgical History: Other (Right foot) Social history: other (Drug abuse) Family history: hypertension Medications and Allergies Allergies Allergy/AdvReac Type Severity Reaction Status Date / Time No Known Allergies Allergy Verified 12/18/21 10:12 Home Medications Medication Instructions Recorded Confirmed Last Taken Type amLODIPine 10 mg PO BID 11/06/21 02/02/22 12/17/21 History Albuterol Mdi (or & Nicu Only) 2 puff IH QID PRN #8.5 gram 12/31/21 02/02/22 Unknown Rx [ProAir HFA Inhaler] Azithromycin [Zithromax Z-ROCHELLE] 0 mg PO DAILY #1 pack 12/31/21 Unknown Rx predniSONE [Deltasone] 40 mg PO QDAY #10 tab 12/31/21 02/02/22 Unknown Rx Active Meds: Active Medications Acetaminophen (Acetaminophen 325 Mg Tab) 650 mg PO Q4H PRN PRN Reason: Pain MILD(1-3)/Fever >100.5/[place] Albuterol (Albuterol 2.5 Mg/3 Ml Nebu) 2.5 mg IH Q3HRT PRN PRN Reason: Shortness Of Breath Albuterol/Ipratropium (Ipratropium/Albuterol Sulfate 3 Ml Ampul.Neb) 1 ampul IH Q6HRT MARY Last Admin: 02/02/22 09:54 Dose: 1 ampul Amlodipine Besylate (Amlodipine 10 Mg Tab) 10 mg PO DAILY [facility] Aspirin (Aspirin Ec 325 Mg Tab) 325 mg PO QDAY [facility] Atorvastatin Calcium (Atorvastatin 40 Mg Tab) 40 mg PO QHS [facility] Famotidine (Famotidine 20 Mg Tab) 20 mg PO BID [facility] Furosemide (Furosemide 40 Mg/4 Ml Inj) 40 mg IV BID@0600,1800 [facility] Last Admin: 02/02/22 06:00 Dose: 40 mg Heparin Sodium (Porcine) (Heparin 5,000 Unit/1 Ml Vial) 5,000 unit SUB-Q Q12HR [facility] Hydralazine HCl (Hydralazine 20 Mg/1 Ml Inj) 10 mg IV Q6H PRN PRN Reason: Blood Pressure Hydromorphone HCl (Hydromorphone 1 Mg/1 Ml Inj) 0.5 mg IV Q3H PRN PRN Reason: Pain , Severe (7-10) Morphine Sulfate (Morphine 2 Mg/1 Ml Inj) 2 mg IV Q4H PRN PRN Reason: Pain, Moderate (4-6) Ondansetron HCl (Ondansetron 4 Mg/2 Ml Inj) 4 mg IV Q8H PRN PRN Reason: Nausea And Vomiting Sodium Chloride (Sodium Chloride 0.9% 10 Ml Flush Syringe) 10 ml IV BID [facility] Sodium Chloride (Sodium Chloride 0.9% 10 Ml Flush Syringe) 10 ml IV PRN PRN PRN Reason: LINE FLUSH Review of Systems Constitutional: no weight loss, no weight gain, no fever, no chills Ears, nose, mouth and throat: no nasal discharge, no sinus pressure Cardiovascular: no chest pain, no orthopnea, no palpitations, no edema, no dyspnea on exertion Respiratory: hemoptysis, pain on inspiration, no shortness of breath, no dyspnea on exertion Gastrointestinal: no abdominal pain, no nausea, no vomiting Genitourinary Male: no dysuria, no hematuria, no flank pain Musculoskeletal: no neck stiffness, no neck pain, no shooting arm pain Integumentary: no pruritis, no redness, no sores Neurological: no head injury, no transient paralysis Psychiatric: no anxiety, no memory loss Endocrine: no cold intolerance, no heat intolerance Hematologic/Lymphatic: no easy bruising, no easy bleeding Allergic/Immunologic: no urticaria Physical Examination Vital Signs Temp Pulse Resp BP Pulse Ox 98.6 F 97 H 18 140/87 100 02/02/22 03:07 02/02/22 03:07 02/02/22 03:07 02/02/22 03:07 02/02/22 03:07 General appearance: no acute distress HEENT: Positive: PERRL Neck: Positive: trachea midline Cardiac: Positive: Reg Rate and Rhythm Lungs: Positive: Decreased Breath Sounds Neuro: Positive: Grossly Intact Abdomen: Positive: Soft Skin: Negative: Rash, Suspicious Lesions Extremities: Present: upper extr. pulses. Absent: edema Results 02/02/22 03:49 02/02/22 03:49 Cardiac Enzymes 02/02/22 Range/Units 03:49 AST 38 (5-40) units/L Lipids 02/02/22 Range/Units 03:49 Triglycerides 158 H (2-149) mg/dL Cholesterol 110 (50-199) mg/dL HDL Cholesterol 19 L (40-59) mg/dL Cholesterol/HDL Ratio 5.78 % CBC 02/02/22 Range/Units 03:49 WBC 13.9 H (4.5-11.0) K/mm3 RBC 3.58 L (3.65-5.03) M/mm3 Hgb 7.9 L (11.8-15.2) gm/dl Hct 26.3 L (35.5-45.6) % Plt Count 406 (140-440) K/mm3 Lymph # (Auto) 0.9 L (1.2-5.4) K/mm3 [place] # (Auto) 1.4 H (0.0-0.8) K/mm3 Eos # (Auto) 0.3 (0.0-0.4) K/mm3 Baso # (Auto) 0.0 (0.0-0.1) K/mm3 Comprehensive Metabolic Panel 02/02/22 02/02/22 Range/Units 03:49 03:49 Sodium 139 (137-145) mmol/L Potassium 4.0 (3.6-5.0) mmol/L Chloride 101.5 (98-107) mmol/L Carbon Dioxide 26 (22-30) mmol/L BUN 19 (9-20) mg/dL Creatinine 0.9 (0.8-1.3) mg/dL Glucose 142 H (75-100) mg/dL Calcium 8.8 (8.4-10.2) mg/dL Direct Bilirubin < 0.2 (0-0.2) mg/dL Indirect Bilirubin 0.1 mg/dL AST 38 (5-40) units/L ALT 16 (7-56) units/L Alkaline Phosphatase 87 (35-129) units/L Total Protein 7.0 (6.3-8.2) g/dL Albumin 3.7 L (3.9-5) g/dL - Imaging and Cardiology Echo: report reviewed EKG interpretations - Telemetry EKG Rhythm: Sinus Rhythm - EKG Sinus rhythms and dysrhythmias: sinus rhythm AV and intraventricular conduction: intraventricular conducti Chamber hypertrophy or enlargement: left ventricular hypertro Assessment and Plan Patient is a 42-year-old male with a past medical history of hypertension, Raynaud's syndrome, and tobacco abuse who presented to the ED with a complaint of coughing up blood which occurred the night prior to admission Acute respiratory failure Anemia Hypertension Minimally elevated troponins Echo 02/02/2022-EF 50 to 55% moderate concentric LVH. Mild diastolic dysfunction is present. Impaired relaxation pattern. Right ventricle systolic function is normal Plan: EKG shows sinus rhythm 96 with APCs and nonspecific IVCD. No acute ischemic changes. Troponin noted to be minimally elevated and stable. Patient remains chest pain-free and denies any complaints of chest pain BNP noted to be elevated however patient appears near euvolemic on exam without any complaints of chest pain, orthopnea, dyspnea on exertion, or bilateral lower extremity edema. Patient does not appear to be clinically in heart failure Patient currently on amlodipine, aspirin, Lipitor Due to patient's complaint of hemoptysis and anemia primary team may wish to consider pulmonology and/or GI consult Patient seen in conjunction with Dr. Mclain who who agrees with this plan of care - Patient Problems (1) Anemia Current Visit: Yes Status: Acute (2) Hx of frostbite Current Visit: No Status: Acute (3) Acute respiratory failure with hypoxia Current Visit: Yes Status: Acute (4) Elevated troponin Current Visit: Yes Status: Acute (5) Hypertension Current Visit: Yes Status: Acute
[2022-02-02] MEDS: ASPIRIN EC 325 MG TAB PO SCH (14:00)
[2022-02-02] MEDS: amLODIPine 10 MG TAB PO SCH (14:01)
[2022-02-02] MEDS: HEPARIN 5,000 UNIT/1 ML VIAL SUB-Q SCH ×2 (14:02→21:44)
[2022-02-02] MEDS: FAMOTIDINE 20 MG TAB PO SCH ×2 (14:02→21:10)
--- NOTE | 2022-02-02 22:51 | Cat Scan Report ---
CTA CHEST WITH CONTRAST INDICATION / CLINICAL INFORMATION: Hemoptysis/shortness of breath. TECHNIQUE: Axial CT images were obtained through the chest after injection of 100 cc of Omnipaque 350 IV contrast. 3 plane MIP and/or 3D reconstructions were produced. All CT scans at this location are performed using CT dose reduction for ALARA by means of automated exposure control. COMPARISON: Chest radiograph 02/02/2022 FINDINGS: PULMONARY ARTERIES: There are no central pulmonary emboli. The distal segmental and subsegmental gomez bert is limited due to motion artifact. THORACIC AORTA: No significant abnormality. HEART: Trace pericardial effusion. CORONARY ARTERY CALCIFICATION: Moderate. MEDIASTINUM / HANS: Small likely reactive lymph nodes in the mediastinum. PLEURA: No pleural effusion. No pneumothorax. LUNGS: Bilateral groundglass opacities, most pronounced throughout the left upper lobe and bilateral lower lobes. ADDITIONAL FINDINGS: Small likely reactive lymph nodes in bilateral axilla. UPPER ABDOMEN: No acute findings. SKELETAL STRUCTURES: No significant osseous abnormality. IMPRESSION: 1. No CT evidence for central pulmonary emboli. Evaluation of the distal segmental and subsegmental a rteries is limited due to respiratory motion. 2. Bilateral groundglass opacities predominantly involving the left upper lobe and bilateral lower lo bes. This could represent pulmonary edema or atypical infection. Recommend clinical correlation. Signer Name: Sae Rivera MD Signed: 02/02/2022 10:46 PM Workstation Name: [id number]
--- NOTE | 2022-02-03 00:54 | Event Note ---
Date: 02/02/22 Patient c/o blood stained sputum --Hemoptysis: Check CTA chest, consult pulmonary if needed -- Anemia; chronic Monitor H&H, transfuse PRBC if needed --h/o Raynaud's disease; Supportive care -- Polysubstance abuse: Counseling done, advised to keep tobacco alcohol and recreational drugs --Social issues; Patient is homeless, DC planning per case management when medically stable Closely monitor the patient and adjust the management as needed Plan of care reviewed with the patient. --
[2022-02-03] MEDS: IPRATROPIUM/ALBUTEROL SULFATE 3 ML AMPUL.NEB IH SCH ×4 (02:03→21:09)
[2022-02-03] MEDS: FUROSEMIDE 40 MG/4 ML INJ IV SCH ×2 (05:15→18:45)
[2022-02-03 06:34] LABS: Mean Corpuscular HGB Conc 31 % (32-34); Mean Corpuscular Volume 73 fl (84-94); Platelet Count 421 K/mm3 (140-440); Red Blood Count 3.99 M/mm3 (3.65-5.03); Red Cell Distribution Width 19.3 % (13.2-15.2)
[2022-02-03 06:51] LABS: BUN/Creatinine Ratio 25; Blood Urea Nitrogen 20 mg/dL (9-20); Calcium 8.8 mg/dL (8.4-10.2); Hemolysis Index 0
[2022-02-03 08:42] LABS: Basophils % (Manual) 0 % (0.0-1.8); Hypochromasia 1+; Large Platelets Few; Platelet Estimate Consistent w Auto; Total Cells Counted 100
[2022-02-03] MEDS: ASPIRIN EC 325 MG TAB PO SCH (10:07)
[2022-02-03] MEDS: amLODIPine 10 MG TAB PO SCH (10:07)
[2022-02-03] MEDS: FAMOTIDINE 20 MG TAB PO SCH ×2 (10:08→22:18)
[2022-02-03] MEDS: HEPARIN 5,000 UNIT/1 ML VIAL SUB-Q SCH ×2 (10:09→22:18)
--- NOTE | 2022-02-03 10:39 | Progress Note ---
Assessment and Plan Patient is a 42-year-old male with a past medical history of hypertension, Raynaud's syndrome, and tobacco abuse who presented to the ED with a complaint of coughing up blood which occurred the night prior to admission Acute respiratory failure Anemia Hypertension Minimally elevated troponins Echo 02/02/2022-EF 50 to 55% moderate concentric LVH. Mild diastolic dysfunction is present. Impaired relaxation pattern. Right ventricle systolic function is normal Plan: Patient remains chest pain-free and denies any complaints of chest pain BNP noted to be elevated however patient appears near euvolemic on exam without any complaints of chest pain, orthopnea, dyspnea on exertion, or bilateral lower extremity edema. Patient does not appear to be clinically in heart failure Patient currently on amlodipine, aspirin, Lipitor Due to patient's complaint of hemoptysis and anemia primary team may wish to consider pulmonology and/or GI consult Cardiac status appears to be otherwise stable Patient seen in conjunction with Dr. Mclain who who agrees with this plan of care - Patient Problems (1) Anemia Current Visit: Yes Status: Acute (2) Hx of frostbite Current Visit: No Status: Acute (3) Acute respiratory failure with hypoxia Current Visit: Yes Status: Acute (4) Elevated troponin Current Visit: Yes Status: Acute (5) Hypertension Current Visit: Yes Status: Acute Subjective Date of service: 02/03/22 Principal diagnosis: Hemoptysis Interval history: Patient resting in bed in no acute distress. Patient denies any complaints. Patient reports no further episodes of coughing up blood Sinus 80s to 90s on monitor Objective Vital Signs Temp Pulse Pulse Resp Resp BP Pulse Ox 02/03/22 10:07 89 02/03/22 08:48 82 16 02/03/22 08:45 82 16 02/03/22 07:11 98.6 F 80 14 131/73 100 02/03/22 04:11 98.5 F 86 16 139/76 99 02/02/22 23:03 98.3 F 54 L 12 128/68 98 02/02/22 20:38 96 02/02/22 20:36 94 H 16 02/02/22 19:40 94 02/02/22 19:09 98.6 F 85 16 119/76 99 02/02/22 15:42 98.2 F 95 H 14 137/82 96 02/02/22 15:00 86 18 02/02/22 14:01 85 02/02/22 11:18 98.6 F 90 14 136/75 98 - Physical Examination HEENT: Positive: PERRL Neck: Positive: trachea midline Cardiac: Positive: Reg Rate and Rhythm Lungs: Positive: Decreased Breath Sounds (Breath sounds diminished on left inside) Neuro: Positive: Grossly Intact Abdomen: Positive: Soft Skin: Negative: Rash, Suspicious Lesions Extremities: Present: upper extr. pulses. Absent: edema - Labs and Meds CBC 02/03/22 Range/Units 05:06 WBC 6.6 (4.5-11.0) K/mm3 RBC 3.99 (3.65-5.03) M/mm3 Hgb 9.0 L (11.8-15.2) gm/dl Hct 29.0 L (35.5-45.6) % Plt Count 421 (140-440) K/mm3 Comprehensive Metabolic Panel 02/03/22 Range/Units 05:06 Sodium 138 (137-145) mmol/L Potassium 3.6 (3.6-5.0) mmol/L Chloride 101.0 (98-107) mmol/L Carbon Dioxide 24 (22-30) mmol/L BUN 20 (9-20) mg/dL Creatinine 0.8 (0.8-1.3) mg/dL Glucose 82 (75-100) mg/dL Calcium 8.8 (8.4-10.2) mg/dL - Imaging and Cardiology Echo: report reviewed - Telemetry EKG Rhythm: Sinus Rhythm - EKG Sinus rhythms and dysrhythmias: sinus rhythm AV and intraventricular conduction: intraventricular conducti Chamber hypertrophy or enlargement: left ventricular hypertro
[2022-02-03] MEDS ORDERED: ALPRAZolam 0.25 MG TAB PO ONE (21:57)
[2022-02-04] MEDS: IPRATROPIUM/ALBUTEROL SULFATE 3 ML AMPUL.NEB IH SCH ×3 (01:56→14:14)
[2022-02-04] MEDS: FUROSEMIDE 40 MG/4 ML INJ IV SCH (05:41)
[2022-02-04 06:14] LABS: BUN/Creatinine Ratio 26; Blood Urea Nitrogen 26 mg/dL (9-20); Calcium 8.7 mg/dL (8.4-10.2); Hemolysis Index 19
--- NOTE | 2022-02-04 09:54 | Progress Note ---
Assessment and Plan -- Acute exacerbation of CHF (congestive heart failure) Current Visit: Yes Status: Acute Diuretics, input output monitoring, low-sodium diet, fluid restriction Echocardiogram for LV function ejection fraction, cardiology consulted --Acute respiratory failure with hypoxia Current Visit: Yes Status: Acute Oxygen by nasal cannula 3 L/min. DuoNeb by nebulizer every 4 hours. Albuterol via nebulizer every 4 hours as needed Treat underlying CHF, home O2 evaluation at discharge --non-ST elevation [place] Current Visit: Yes Status: Acute Aspirin 325 mg p.o. daily. Lipitor 40 mg p.o. daily. Beta-blockers nitroglycerin as needed. Serial cardiac enzymes. Echocardiogram. Cardiology evaluation --Hypertension Current Visit: Yes Status: Acute Hydralazine 10 mg IV every 6 hours as needed. Amlodipine 10 mg p.o. daily. Closely monitor blood pressures adjust as needed --Polysubstance abuse. Tobacco, alcohol, recreational drugs Strongly advised to quit alcohol and recreational drugs Smoking cessation counseling done Follow urine toxicology --Full CODE STATUS; --DVT prophylaxis Current Visit: No Status: Acute Heparin 5000 units subcu every 12 hours for DVT prophylaxis. Nurse reports that patient complains of hemoptysis. However when we last to collect and show it, patient did not CTA chest w/o out any lung lesions or PE will do pulmonary consult Total time spent 35 minutes Subjective Date of service: 02/03/22 Principal diagnosis: Hemoptysis Objective - Constitutional Vitals: Vital Signs - 12hr 02/03/22 02/03/22 02/04/22 23:00 23:12 01:57 Temperature 97.5 F L Pulse Rate 94 H 119 H Pulse Rate [ 78 Bilateral] Respiratory 18 Rate Respiratory Rate [Bilateral Foot] Respiratory 16 Rate [Bilateral ] Blood Pressure 125/62 O2 Sat by Pulse 97 Oximetry 02/04/22 02/04/22 02/04/22 03:47 03:48 07:00 Temperature 98.0 F Pulse Rate 58 L 78 Pulse Rate [ Bilateral] Respiratory 18 Rate Respiratory 20 Rate [Bilateral Foot] Respiratory Rate [Bilateral ] Blood Pressure 112/60 O2 Sat by Pulse 98 Oximetry 02/04/22 09:08 Temperature Pulse Rate Pulse Rate [ 112 H Bilateral] Respiratory Rate Respiratory Rate [Bilateral Foot] Respiratory 16 Rate [Bilateral ] Blood Pressure O2 Sat by Pulse 93 Oximetry - Labs CBC & Chem 7: 02/03/22 05:06 02/04/22 05:22 Labs: Abnormal lab results 02/04/22 Range/Units 05:22 Chloride 97.0 L (98-107) mmol/L BUN 26 H (9-20) mg/dL Glucose 111 H (75-100) mg/dL HEART Score - HEART Score Troponin: Troponin T 0.065 ng/mL (0.00-0.029) H 02/02/22 06:36
[2022-02-04] MEDS: amLODIPine 10 MG TAB PO SCH (09:58)
[2022-02-04] MEDS: ASPIRIN EC 325 MG TAB PO SCH (09:59)
[2022-02-04] MEDS: HEPARIN 5,000 UNIT/1 ML VIAL SUB-Q SCH (10:00)
[2022-02-04] MEDS: FAMOTIDINE 20 MG TAB PO SCH (10:02)
[2022-02-04 10:08] VITALS: BP 129/87
--- NOTE | 2022-02-04 10:27 | Progress Note ---
Assessment and Plan Patient is a 42-year-old male with a past medical history of hypertension, Raynaud's syndrome, and tobacco abuse who presented to the ED with a complaint of coughing up blood which occurred the night prior to admission Acute respiratory failure Anemia Hypertension Minimally elevated troponins Echo 02/02/2022-EF 50 to 55% moderate concentric LVH. Mild diastolic dysfunction is present. Impaired relaxation pattern. Right ventricle systolic function is normal Plan: Patient remains chest pain-free and denies any complaints of chest pain Patient currently on amlodipine, aspirin, Lipitor Due to patient's complaint of hemoptysis and anemia primary team may wish to consider pulmonology Will stop IV Lasix Cardiac status appears to be otherwise stable. Will see as needed Patient seen in conjunction with Dr. Mclain who who agrees with this plan of care - Patient Problems (1) Anemia Current Visit: Yes Status: Acute (2) Hx of frostbite Current Visit: No Status: Acute (3) Acute respiratory failure with hypoxia Current Visit: Yes Status: Acute (4) Elevated troponin Current Visit: Yes Status: Acute (5) Hypertension Current Visit: Yes Status: Acute Subjective Date of service: 02/04/22 Principal diagnosis: Hemoptysis Interval history: Patient resting in bed in no acute distress. Patient denies any complaints. Patient reports no further episodes of coughing up blood Sinus 80s to 90s on monitor Objective Vital Signs Temp Pulse Pulse Resp Resp Resp BP 02/04/22 09:58 81 129/87 02/04/22 09:08 112 H 16 02/04/22 07:00 78 02/04/22 03:48 20 02/04/22 03:47 98.0 F 58 L 18 112/60 02/04/22 01:57 78 16 02/03/22 23:12 97.5 F L 119 H 18 125/62 02/03/22 23:00 94 H 02/03/22 21:10 55 L 18 02/03/22 19:01 98.8 F 50 L 18 126/62 02/03/22 19:00 02/03/22 15:43 98.1 F 70 14 113/60 02/03/22 14:00 83 16 02/03/22 11:06 98.1 F 82 14 102/63 Pulse Ox 02/04/22 09:58 02/04/22 09:08 93 02/04/22 07:00 02/04/22 03:48 02/04/22 03:47 98 02/04/22 01:57 02/03/22 23:12 97 02/03/22 23:00 02/03/22 21:10 02/03/22 19:01 98 02/03/22 19:00 98 02/03/22 15:43 90 02/03/22 14:00 02/03/22 11:06 98 - Physical Examination HEENT: Positive: PERRL Neck: Positive: trachea midline Cardiac: Positive: Reg Rate and Rhythm Lungs: Positive: Decreased Breath Sounds (Left greater than right) Neuro: Positive: Grossly Intact Abdomen: Positive: Soft Skin: Negative: Rash, Suspicious Lesions Extremities: Present: upper extr. pulses. Absent: edema - Labs and Meds Comprehensive Metabolic Panel 02/04/22 Range/Units 05:22 Sodium 137 (137-145) mmol/L Potassium 4.2 (3.6-5.0) mmol/L Chloride 97.0 L (98-107) mmol/L Carbon Dioxide 24 (22-30) mmol/L BUN 26 H (9-20) mg/dL Creatinine 1.0 (0.8-1.3) mg/dL Glucose 111 H (75-100) mg/dL Calcium 8.7 (8.4-10.2) mg/dL - Imaging and Cardiology Echo: report reviewed - Telemetry EKG Rhythm: Sinus Rhythm - EKG Sinus rhythms and dysrhythmias: sinus rhythm AV and intraventricular conduction: intraventricular conducti Chamber hypertrophy or enlargement: left ventricular hypertro
--- NOTE | 2022-02-04 17:44 | Electrocardiograph Report ---
[facility] Test Date: 2022-02-02 Test Time: 03:37:38 Pat Name: BOUBACAR APARICIO Department: [address] [place] [address] Room: A460 1 Gender: M [employer]: RKBAM : 1980 Requested By: JOANN PABLO Order Number: [id number] Reading MD: Toño Pritchard Measurements Intervals [place] Rate: 96 P: 0 MS: 166 QRS: 114 QRSD: 118 T: -16 QT: 364 QTc: 459 Interpretive Statements Sinus rhythm Atrial premature complex Limb lead malposition Left anterior fascicular block Left ventricle hypertrophy Compared to ECG 12/31/2021 11:52:23 Occasional PAC is now evident The limb leads are malpositioned on current ECG Electronically Signed On 02-04-2022 17:43:41 EDT by Toño Pritchard
== END 2022-02-04 15:58 | disposition left against medical advice (07) | DRG 280 ==
LOC: ED 02:24 → 4A 05:42
PROVIDERS: ADMIT Hospitalist; ATTEND Internal Medicine
DX: I21.4 Non-ST elevation (NSTEMI) myocardial infarction (principal); J96.01 Acute respiratory failure with hypoxia; I50.9 Heart failure, unspecified; Z20.822 Contact with and (suspected) exposure to COVID-19; I11.0 Hypertensive heart disease with heart failure; F19.10 Other psychoactive substance abuse, uncomplicated; D64.9 Anemia, unspecified; Z82.49 Family history of ischemic heart disease and other diseases of the circulatory system; Z53.29 Procedure and treatment not carried out because of patient's decision for other reasons
CPT/HCPCS: 36415; 71045; 71275; 80048; 80061; 80076; 83880; 84484; 85007; 85025; 93005; 93306; 94640; 94760; 99406; G0378; C8929; J1644; J1940; Q9967; U0003

== ENCOUNTER 2022-02-14 22:15 | Inpatient (IN) | payer SELFPAY ==
[2022-02-14] MEDS ORDERED: ASPIRIN 325 MG TAB PO ONE (23:19)
--- NOTE | 2022-02-14 23:50 | XRay Report ---
CHEST 2 VIEWS INDICATION / CLINICAL INFORMATION: chestpain. COMPARISON: Chest CT and radiograph dated 02/02/2022 FINDINGS: SUPPORT DEVICES: None. HEART / MEDIASTINUM: No significant abnormality. LUNGS / PLEURA: Mild pulmonary vascular indistinctness. There is also slight increased opacification within the right lung. This appears similar to the chest radiograph dated 02/02/2022. No pneumothorax. ADDITIONAL FINDINGS: No significant additional findings. IMPRESSION: 1. Findings suggesting pulmonary edema. 2. There is also increased opacification within the right lung which appears similar to chest radiogr aph dated 02/02/2022, at which time the CT indicated possible atypical infectious process. Signer Name: Gerard Marques DO Signed: 02/14/2022 11:46 PM Workstation Name: [id number]
[2022-02-15 00:25] LABS: Basophils % (Auto) 0.3 % (0.0-1.8); Eosinophils # (Auto) 0.2 K/mm3 (0.0-0.4); Eosinophils % (Auto) 2.2 % (0.0-4.3); Hematocrit 22.9 % (35.5-45.6); Hemoglobin 7.2 gm/dl (11.8-15.2); Lymphocytes # (Auto) 1.3 K/mm3 (1.2-5.4); Lymphocytes % (Auto) 13.6 % (13.4-35.0); Mean Corpuscular HGB Conc 31 % (32-34); Mean Corpuscular Volume 72 fl (84-94); Monocytes # (Auto) 1.1 K/mm3 (0.0-0.8); Platelet Count 364 K/mm3 (140-440); Red Blood Count 3.19 M/mm3 (3.65-5.03); Red Cell Distribution Width 19.3 % (13.2-15.2)
[2022-02-15 00:47] LABS: Alanine Aminotransferase 18 units/L (7-56); Albumin 4.1 g/dL (3.9-5); Blood Urea Nitrogen 16 mg/dL (9-20); Calcium 8.6 mg/dL (8.4-10.2); Hemolysis Index 1
[2022-02-15 00:49] LABS: BUN/Creatinine Ratio 23
[2022-02-15 02:37] LABS: Chol/HDL Ratio 4.55 %; HDL Cholesterol 20 mg/dL (40-59); LDL Cholesterol,Direct 52 mg/dL (50-130)
[2022-02-15] MEDS ORDERED: FUROSEMIDE 40 MG/4 ML INJ IV ONE (06:56)
[2022-02-15] MEDS ORDERED: ONDANSETRON 4 MG/2 ML INJ IV ONE (06:56)
[2022-02-15] MEDS ORDERED: fentaNYL 100 MCG/2 ML INJ IV ONE (06:56)
--- NOTE | 2022-02-15 07:02 | Emergency Department Report ---
HPI - General Chief Complaint: Chest Pain Time Seen by Provider: 02/15/22 06:38 - HPI HPI: Room 2 The patient is a 41-year-old male present with a chief complaint of shortness of breath and cough. The patient was admitted to this hospital 02/02/2022 for the same but left AMA 02/04/2022. Patient states he should have state as his symptoms continued. Patient complains of substernal chest pain which started yesterday, shortness of breath with hemoptysis. Patient denies history of fever. The patient is hypoxic to 77% on room air here in the ED. Patient placed on supplemental O2 ED Past Medical Hx - Past Medical History Previous Medical History?: Yes Hx Hypertension: Yes Hx Congestive Heart Failure: Yes Additional medical history: Raynaud's Disease. Drug User. - Surgical History Past Surgical History?: Yes Additional Surgical History: Right foot - Family History Family history: no significant - Social History Smoking Status: Current Every Day Smoker (1/7pack/day) Substance Use Type: None (Patient denies illicit drug use but has previous history) - Medications Home Medications: Home Medications Medication Instructions Recorded Confirmed Last Taken Type amLODIPine 10 mg PO BID 11/06/21 02/02/22 12/17/21 History Albuterol Mdi (or & Nicu Only) 2 puff IH QID PRN #8.5 gram 12/31/21 02/02/22 Unknown Rx [ProAir HFA Inhaler] predniSONE [Deltasone] 40 mg PO QDAY #10 tab 12/31/21 02/02/22 Unknown Rx ED Review of Systems ROS: Stated complaint: COUGHING UP BLOOD/CHEST PAIN/GEETHA Other details as noted in HPI Constitutional: denies: fever Eyes: denies: eye pain ENT: denies: throat pain Respiratory: cough, shortness of breath Cardiovascular: chest pain Endocrine: no symptoms reported Gastrointestinal: denies: abdominal pain Genitourinary: denies: dysuria Musculoskeletal: denies: back pain Neurological: denies: headache Physical Exam - Physical Exam Vital Signs: Vital Signs 02/14/22 23:15 Temperature 98.2 F Pulse Rate 90 Respiratory 18 Rate Blood Pressure 133/88 O2 Sat by Pulse 100 Oximetry Physical Exam: GENERAL: The patient is well-developed well-nourished male lying on stretcher not appearing to be in acute distress. [] HEENT: Normocephalic. Atraumatic. Extraocular motions are intact. Patient has moist mucous membranes. NECK: Supple. Trachea midline CHEST/LUNGS: Rhonchi with occasional crackles. There is no respiratory distress noted. Hypoxic to 77% on room air HEART/CARDIOVASCULAR: Regular. There is no tachycardia. There is no gallop rub or murmur. Occasional ectopy ABDOMEN: Abdomen is soft, nontender. Patient has normal bowel sounds. There is no abdominal distention. SKIN: There is no rash. There is no edema. There is no diaphoresis. NEURO: The patient is awake, alert, and oriented. The patient is cooperative. The patient has no focal neurologic deficits. The patient has normal speech. GCS 15 MUSCULOSKELETAL: There is no evidence of acute injury. ED Course Vital Signs 02/14/22 23:15 Temperature 98.2 F Pulse Rate 90 Respiratory 18 Rate Blood Pressure 133/88 O2 Sat by Pulse 100 Oximetry ED Medical Decision Making - Lab Data Result diagrams: 02/15/22 00:03 02/15/22 00:03 Laboratory Tests 02/15/22 02/15/22 00:03 00:03 WBC 9.8 RBC 3.19 L Hgb 7.2 L Hct 22.9 L MCV 72 L MCH 23 L MCHC 31 L RDW 19.3 H Plt Count 364 Lymph % (Auto) 13.6 [place] % (Auto) 11.0 H Eos % (Auto) 2.2 Baso % (Auto) 0.3 Lymph # (Auto) 1.3 [place] # (Auto) 1.1 H Eos # (Auto) 0.2 Baso # (Auto) 0.0 Seg Neutrophils % 72.9 H Seg Neutrophils # 7.1 Sodium 139 Potassium 3.7 Chloride 101.1 Carbon Dioxide 25 Anion Gap 17 BUN 16 Creatinine 0.7 L Estimated GFR > 60 BUN/Creatinine Ratio 23 Glucose 128 H Calcium 8.6 Total Bilirubin 0.80 AST 32 ALT 18 Alkaline Phosphatase 89 Troponin T 0.063 H Total Protein 6.9 Albumin 4.1 Albumin/Globulin Ratio 1.5 Triglycerides 127 Cholesterol 91 LDL Cholesterol Direct 52 HDL Cholesterol 20 L Cholesterol/HDL Ratio 4.55 - EKG Data -: EKG Interpreted by Vt EKG shows normal: sinus rhythm Rate: normal - EKG Data When compared to previous EKG there are: changes noted Interpretation: nonspecific ST-T wave jose eduardo (New T wave inversions in lead aVL when compared to previous EKG dated 02/02/2022) - Radiology Data Radiology results: report reviewed (Chest x-ray), image reviewed (Chest x-ray) interpreted by me: Chest [id number] lower lobe haziness, right lower lobe patchy infiltrate. No pneumothorax [facility] [address] [place] [address] XRay Report Signed Patient: BOUBACAR APARICIO MR#: [id number] : 1980 Acct:[id number] Age/Sex: 41 / M ADM Date: 02/14/22 Loc: ED Attending Dr: Ordering Physician: ED MD EDUARDO Date of Service: 02/14/22 Procedure(s): XR chest routine 2V Accession Number(s): [id number] cc: ED DOC, Fluoro Time In Minutes: CHEST 2 VIEWS INDICATION / CLINICAL INFORMATION: chestpain. COMPARISON: Chest CT and radiograph dated 02/02/2022 FINDINGS: SUPPORT DEVICES: None. HEART / MEDIASTINUM: No significant abnormality. LUNGS / PLEURA: Mild pulmonary vascular indistinctness. There is also slight increased opacification within the right lung. This appears similar to the chest radiograph dated 02/02/2022. No pneumothorax. ADDITIONAL FINDINGS: No significant additional findings. IMPRESSION: 1. Findings suggesting pulmonary edema. 2. There is also increased opacification within the right lung which appears similar to chest radiograph dated 02/02/2022, at which time the CT indicated possible atypical infectious process. Signer Name: Gerard Marques DO Si gned: 02/14/2022 11:46 PM Workstation Name: [id number] Transcribed By: MODESTO Dictated By: GERARD MARQUES DO Electronically Authenticated By: GERARD MARQUES DO Signed Date/Time: 02/14/22 1766 - Differential Diagnosis Atypical pneumonia, pulmonary edema Critical care attestation.: If time is entered above; I have spent that time in minutes in the direct care of this critically ill patient, excluding procedure time. ED Disposition Clinical Impression: Acute respiratory failure with hypoxia, Elevated troponin, Cough Disposition: ADMITTED INPATIENT Is pt being admited?: Yes Does the pt Need Aspirin: Yes Condition: Fair Time of Disposition: :10 (Care transferred to hospitalist (Dr. Arevalo))
[2022-02-15] MEDS ORDERED: ONDANSETRON 4 MG/2 ML INJ IV PRN (08:35)
[2022-02-15] MEDS ORDERED: HYDROmorphone 1 MG/1 ML INJ IV PRN (08:35)
[2022-02-15] MEDS ORDERED: oxyCODONE /ACETAMINOPHEN 5-325MG TAB PO PRN (08:35)
[2022-02-15] MEDS ORDERED: NALOXONE 0.4 MG/1 ML INJ IV PRN (08:35)
[2022-02-15] MEDS ORDERED: ACETAMINOPHEN 325 MG TAB PO PRN (08:35)
--- NOTE | 2022-02-15 08:39 | History and Physical Report ---
History of Present Illness Date of examination: 02/15/22 Date of admission: 02/15/2022 Chief complaint: Shortness of breath cough and hemoptysis History of present illness: The patient is a 41-year-old male present with a chief complaint of shortness of breath and cough as well as hemoptysis the patient was admitted to this hospital 02/02/2022 for the same but left AMA 02/04/2022. Patient complains of substernal chest pain which started yesterday, shortness of breath with hemoptysis. Patient denies history of fever. In ER patient was found to be proximal hypoxic to 77% on room air here in the ED. Patient was placed on supplemental O2 Patient denies nausea vomiting or abdominal pain Denies headache dizziness weakness or numbness Patient is homeless was living in retirement and in tents Initial work-up consistent with chest x-ray findings of right-sided pneumonia /infiltrate mild elevation of troponins And hypoxia. Past History Past Medical History: heart failure (Diastolic congestive heart failure), hypertension, other Past Surgical History: Other (Toe surgery) Social history: smoking, alcohol abuse, other (Recreational drug use) Family history: no significant family history Medications and Allergies Allergies Allergy/AdvReac Type Severity Reaction Status Date / Time No Known Allergies Allergy Verified 12/18/21 10:12 Home Medications Medication Instructions Recorded Confirmed Last Taken Type amLODIPine 10 mg PO BID 11/06/21 02/15/22 12/17/21 History Albuterol Mdi (or & Nicu Only) 2 puff IH QID PRN #8.5 gram 12/31/21 02/15/22 Unknown Rx [ProAir HFA Inhaler] predniSONE [Deltasone] 40 mg PO QDAY #10 tab 12/31/21 02/15/22 Unknown Rx Review of Systems Constitutional: fatigue, weakness, no weight loss, no weight gain Ears, nose, mouth and throat: no nasal congestion, no nasal discharge Cardiovascular: shortness of breath, no chest pain, no orthopnea Respiratory: cough with sputum, hemoptysis, shortness of breath Gastrointestinal: no abdominal pain, no nausea, no vomiting, no diarrhea Genitourinary Male: no dysuria, no hematuria Musculoskeletal: myalgias, arthritis Integumentary: no rash, no lesions Neurological: weakness, no parathesias, no numbness, no tingling, no seizures, no syncope Psychiatric: no anxiety, no depression Endocrine: no cold intolerance, no heat intolerance Hematologic/Lymphatic: no easy bruising, no easy bleeding Allergic/Immunologic: no urticaria, no allergic rhinitis Exam - Constitutional Vitals: Temp Pulse Resp BP Pulse Ox 98.2 F 94 H 19 133/88 97 02/14/22 23:15 02/15/22 07:04 02/15/22 07:04 02/14/22 23:15 02/15/22 07:09 General appearance: Present: mild distress, well-nourished - EENT Eyes: Present: PERRL, EOM intact - Neck Neck: Present: supple, normal ROM - Respiratory Respiratory effort: normal Respiratory: right: rhonchi, bilateral: diminished, negative: rales, wheezing - Cardiovascular Rhythm: regular Heart Sounds: Present: S1 & S2 - Extremities Extremities: no ischemia, No edema - Abdominal General gastrointestinal: Present: soft, non-tender, non-distended, normal bowel sounds - Integumentary Integumentary: Present: clear, warm - Musculoskeletal Musculoskeletal: strength equal bilaterally - Psychiatric Psychiatric: appropriate mood/affect, cooperative - Neurologic Neurologic: CNII-XII intact, moves all extremities HEART Score - HEART Score Troponin: Troponin T 0.063 ng/mL (0.00-0.029) H 02/15/22 00:03 Results - Labs CBC & Chem 7: 02/15/22 00:03 02/15/22 00:03 Labs: Abnormal lab results 02/15/22 02/15/22 Range/Units 00:03 00:03 RBC 3.19 L (3.65-5.03) M/mm3 Hgb 7.2 L (11.8-15.2) gm/dl Hct 22.9 L (35.5-45.6) % MCV 72 L (84-94) fl MCH 23 L (28-32) pg MCHC 31 L (32-34) % RDW 19.3 H (13.2-15.2) % [place] % (Auto) 11.0 H (0.0-7.3) % [place] # (Auto) 1.1 H (0.0-0.8) K/mm3 Seg Neutrophils % 72.9 H (40.0-70.0) % Creatinine 0.7 L (0.8-1.3) mg/dL Glucose 128 H (75-100) mg/dL Troponin T 0.063 H (0.00-0.029) ng/mL HDL Cholesterol 20 L (40-59) mg/dL Assessment and Plan --Acute respiratory failure with hypoxia Current Visit: Yes Status: Acute Oxygen by nasal cannula Titrate O2 sats to more than 90% Multifactorial, underlying right-sided pneumonia Acute exacerbation of chronic diastolic congestive heart failure Wean oxygen as tolerated Home O2 evaluation at discharge --PUI/high suspicion for COVID Isolation, lynch PCR test If positive ID consultation -- Acute exacerbation of chronic diastolic CHF (congestive heart failure) Current Visit: Yes Status: Acute Diuretics, input output monitoring, low-sodium diet, fluid restriction LVEF 50 to 55% last month, cardiology evaluated in the past We will closely monitor and adjust management as needed -Hemoptysis; Patient had mild hemoptysis during last admission in [address] chest did not show any PE has some atypical pneumonialike findings patient left AMA, work-up and treatment was not completed Pulmonary consult requested --Anemia; Hb 7.2; Probably secondary to acute blood loss Closely monitor H&H, transfuse 1 unit of PRBC if needed --Right-sided pneumonia; Community-acquired pneumonia In the setting of cough, hemoptysis, right lung lesion Patient has history of living in shelters and homeless Need to rule out tuberculosis Blood-borne isolation, sputum for AFB, sputum cultures Pulmonary consult --non-ST elevation ID; Nonspecific elevation of troponin, patient had work-up during his last admission Medical management --Hypertension Current Visit: Yes Status: Acute Resume home medications --Polysubstance abuse. Tobacco, alcohol, recreational drugs Strongly advised to quit alcohol and recreational drugs Smoking cessation counseling done Follow urine toxicology --Full CODE STATUS; --DVT prophylaxis Current Visit: No Status: Acute SCDs, no pharmacologic anticoagulation in view of hemoptysis and anemia Will closely monitor the patient and adjust management as needed Plan of care reviewed with the patient and the nurse Pending work-up, follow pulmonary consultation and recommendation
[2022-02-15] MEDS ORDERED: ALBUTEROL 8.5 GM MDI INHALATION IH PRN (08:44)
--- NOTE | 2022-02-15 09:22 | Electrocardiograph Report ---
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
[2022-02-15] MEDS ORDERED: ALBUTEROL 2.5 MG/3 ML NEBU IH PRN (09:29)
[2022-02-15] MEDS ORDERED: guaiFENesin DM 200/20 MG ORAL LIQD 10 ML PO PRN (10:05)
[2022-02-15] MEDS: amLODIPine 10 MG TAB PO SCH ×2 (10:06→22:44)
[2022-02-15] MEDS: FAMOTIDINE 20 MG TAB PO SCH ×2 (10:06→22:44)
[2022-02-15] MEDS: FUROSEMIDE 40 MG/4 ML INJ IV SCH (10:06)
[2022-02-15] MEDS: carvediloL 3.125 MG TAB PO SCH ×2 (10:06→22:44)
[2022-02-15] MEDS: ENOXAPARIN 40 MG/0.4 ML INJ SUB-Q SCH (10:06)
--- NOTE | 2022-02-15 12:45 | Consultation ---
History of Present Illness Consult date: 02/15/22 Requesting physician: MAHENDRA BHAKTA Reason for consult: cough, pneumonia, other (Hemoptysis) History of present illness: PULMONARY/CCM CONSULT NOTE (Full dictation # [id number]) Please see dictated notes for full details Past History Past Medical History: heart failure (Diastolic congestive heart failure), hypertension, other Past Surgical History: Other (Toe surgery) Social history: smoking, alcohol abuse, other (Recreational drug use) Family history: no significant family history Medications and Allergies Allergies Allergy/AdvReac Type Severity Reaction Status Date / Time No Known Allergies Allergy Verified 12/18/21 10:12 Home Medications Medication Instructions Recorded Confirmed Last Taken Type amLODIPine 10 mg PO BID 11/06/21 02/15/22 12/17/21 History Albuterol Mdi (or & Nicu Only) 2 puff IH QID PRN #8.5 gram 12/31/21 02/15/22 Unknown Rx [ProAir HFA Inhaler] predniSONE [Deltasone] 40 mg PO QDAY #10 tab 12/31/21 02/15/22 Unknown Rx Active Meds: Active Medications Acetaminophen (Acetaminophen 325 Mg Tab) 650 mg PO Q4H PRN PRN Reason: Pain MILD(1-3)/Fever >100.5/[place] Albuterol (Albuterol 2.5 Mg/3 Ml Nebu) 2.5 mg IH Q4H PRN PRN Reason: Shortness Of Breath Amlodipine Besylate (Amlodipine 10 Mg Tab) 10 mg PO BID [facility] Last Admin: 02/15/22 10:06 Dose: 10 mg Carvedilol (Carvedilol 3.125 Mg Tab) 3.125 mg PO BID [facility] Last Admin: 02/15/22 10:06 Dose: 3.125 mg Enoxaparin Sodium (Enoxaparin 40 Mg/0.4 Ml Inj) 40 mg SUB-Q QDAY [facility] Last Admin: 02/15/22 10:06 Dose: 40 mg Famotidine (Famotidine 20 Mg Tab) 20 mg PO BID [facility] Last Admin: 02/15/22 10:06 Dose: 20 mg Furosemide (Furosemide 40 Mg/4 Ml Inj) 40 mg IV QDAY [facility] Last Admin: 02/15/22 10:06 Dose: Not Given Guaifenesin (Guaifenesin Dm 200/20 Mg Oral Liqd 10 Ml) 10 ml PO Q4H PRN PRN Reason: Cough Hydromorphone HCl (Hydromorphone 1 Mg/1 Ml Inj) 0.5 mg IV Q3H PRN PRN Reason: Pain , Severe (7-10) Azithromycin (Zithromax/Ns) 500 mg in 250 mls @ 250 mls/hr IV Q24H MARY Ceftriaxone Sodium (Rocephin/Ns 2 Gm/100 Ml) 2 gm in 100 mls @ 200 mls/hr IV Q24H MARY; Protocol Naloxone HCl (Naloxone 0.4 Mg/1 Ml Inj) 0.1 mg IV Q2MIN PRN PRN Reason: Res Rate </= 8 or 02 SAT < 92% Ondansetron HCl (Ondansetron 4 Mg/2 Ml Inj) 4 mg IV Q8H PRN PRN Reason: Nausea And Vomiting Oxycodone/Acetaminophen (Oxycodone /Acetaminophen 5-325mg Tab) 1 tab PO Q6H PRN PRN Reason: Pain, Moderate (4-6) Sodium Chloride (Sodium Chloride 0.9% 10 Ml Flush Syringe) 10 ml IV BID [facility] Last Admin: 02/15/22 10:03 Dose: 10 ml Sodium Chloride (Sodium Chloride 0.9% 10 Ml Flush Syringe) 10 ml IV PRN PRN PRN Reason: LINE FLUSH Physical Examination Vital signs: Vital Signs Temp Pulse Resp BP Pulse Ox 98.2 F 90 18 133/88 100 02/14/22 23:15 02/14/22 23:15 02/14/22 23:15 02/14/22 23:15 02/14/22 23:15 Results - Laboratory Findings CBC and BMP: 02/15/22 00:03 02/15/22 00:03 Abnormal lab findings: Abnormal Labs 02/15/22 02/15/22 00:03 00:03 RBC 3.19 L Hgb 7.2 L Hct 22.9 L MCV 72 L MCH 23 L MCHC 31 L RDW 19.3 H [place] % (Auto) 11.0 H [place] # (Auto) 1.1 H Seg Neutrophils % 72.9 H Creatinine 0.7 L Glucose 128 H Troponin T 0.063 H HDL Cholesterol 20 L
[2022-02-15] MEDS: AZITHROMYCIN/NS 500 MG/250 ML 500 MG/250 ML BAG IV SCH (15:03)
[2022-02-15] MEDS: cefTRIAXone/NS 2 GM/100 ML 2 GM/100 ML BAG IV SCH (15:03)
[2022-02-16 00:20] LABS: Creatine Kinase MB 10.3 ng/mL (0.0-4.0)
[2022-02-16 06:56] LABS: Hematocrit 22.3 % (35.5-45.6)
[2022-02-16 07:21] LABS: Blood Urea Nitrogen 15 mg/dL (9-20); Calcium 8.4 mg/dL (8.4-10.2); Hemolysis Index 0
[2022-02-16 07:22] LABS: BUN/Creatinine Ratio 21
--- NOTE | 2022-02-16 09:46 | Progress Note ---
Assessment and Plan Assessment and plan: --PUI/high suspicion for COVID/ Morales PCR test is negative --Right-sided pneumonia; Community-acquired pneumonia In the setting of cough, hemoptysis, right lung lesion Patient has history of living in shelters and homeless Need to rule out tuberculosis Blood-borne isolation, sputum for AFB, sputum cultures Pulmonary ID following --Acute respiratory failure with hypoxia Current Visit: Yes Status: Acute Oxygen by nasal cannula Titrate O2 sats to more than 90% Multifactorial, underlying right-sided pneumonia Acute exacerbation of chronic diastolic congestive heart failure Wean oxygen as tolerated Home O2 evaluation at discharge -- Acute exacerbation of chronic diastolic CHF (congestive heart failure) Current Visit: Yes Status: Acute Diuretics, input output monitoring, low-sodium diet, fluid restriction LVEF 50 to 55% last month, cardiology evaluated in the past We will closely monitor and adjust management as needed --Anemia; Hb 7.2; Probably secondary to acute blood loss Closely monitor H&H, transfuse 1 unit of PRBC if needed --non-ST elevation HI; Nonspecific elevation of troponin, patient had work-up during his last admission Medical management --Hypertension Current Visit: Yes Status: Acute Resume home medications --Polysubstance abuse. Tobacco, alcohol, recreational drugs Strongly advised to quit alcohol and recreational drugs Smoking cessation counseling done Follow urine toxicology --Full CODE STATUS; --DVT prophylaxis Current Visit: No Status: Acute SCDs, no pharmacologic anticoagulation in view of hemoptysis and anemia Will closely monitor the patient and adjust management as needed Plan of care reviewed with the patient and the nurse Pulmonary, cardiology and ID evaluation and recommendations noted and appreciated Closely monitor the patient and adjust management as needed Plan of care reviewed with the patient and his nurse Disposition follow consultants recommendations Follow pending work-up, discharge when medically stable History Interval history: Morales test is negative I have seen and examined the patient at the bedside Patient's chart and medications reviewed Patient feels slightly better Still has intermittent chest pain Hemoptysis significantly improved Vital signs noted Hospitalist Physical - Constitutional Vitals: Temp Pulse Resp BP Pulse Ox 97.7 F 81 18 103/53 98 02/16/22 05:03 02/16/22 05:03 02/16/22 05:03 02/16/22 05:03 02/16/22 05:03 General appearance: Present: no acute distress, well-nourished, other - EENT Eyes: Present: PERRL, EOM intact - Neck Neck: Present: supple, normal ROM - Respiratory Respiratory effort: normal Respiratory: bilateral: diminished, rhonchi, negative: rales, wheezing - Cardiovascular Rhythm: regular Heart Sounds: Present: S1 & S2 - Extremities Extremities: no ischemia, No edema - Abdominal General gastrointestinal: soft, non-tender, non-distended, normal bowel sounds - Integumentary Integumentary: Present: clear, warm - Psychiatric Psychiatric: appropriate mood/affect, cooperative - Neurologic Neurologic: CNII-XII intact, moves all extremities HEART Score - HEART Score Troponin: Troponin T 0.073 ng/mL (0.00-0.029) H 02/15/22 23:46 Results - Labs CBC & Chem 7: 02/16/22 06:20 02/16/22 06:20 Labs: Laboratory Last Values WBC 9.8 K/mm3 (4.5-11.0) 02/15/22 00:03 RBC 3.19 M/mm3 (3.65-5.03) L 02/15/22 00:03 Hgb 7.0 gm/dl (11.8-15.2) L 02/16/22 06:20 Hct 22.3 % (35.5-45.6) L 02/16/22 06:20 MCV 72 fl (84-94) L 02/15/22 00:03 MCH 23 pg (28-32) L 02/15/22 00:03 MCHC 31 % (32-34) L 02/15/22 00:03 RDW 19.3 % (13.2-15.2) H 02/15/22 00:03 Plt Count 364 K/mm3 (140-440) 02/15/22 00:03 Lymph % (Auto) 13.6 % (13.4-35.0) 02/15/22 00:03 [place] % (Auto) 11.0 % (0.0-7.3) H 02/15/22 00:03 Eos % (Auto) 2.2 % (0.0-4.3) 02/15/22 00:03 Baso % (Auto) 0.3 % (0.0-1.8) 02/15/22 00:03 Lymph # (Auto) 1.3 K/mm3 (1.2-5.4) 02/15/22 00:03 [place] # (Auto) 1.1 K/mm3 (0.0-0.8) H 02/15/22 00:03 Eos # (Auto) 0.2 K/mm3 (0.0-0.4) 02/15/22 00:03 Baso # (Auto) 0.0 K/mm3 (0.0-0.1) 02/15/22 00:03 Seg Neutrophils % 72.9 % (40.0-70.0) H 02/15/22 00:03 Seg Neutrophils # 7.1 K/mm3 (1.8-7.7) 02/15/22 00:03 Sodium 138 mmol/L (137-145) 02/16/22 06:20 Potassium 3.9 mmol/L (3.6-5.0) 02/16/22 06:20 Chloride 102.0 mmol/L (98-107) 02/16/22 06:20 Carbon Dioxide 26 mmol/L (22-30) 02/16/22 06:20 Anion Gap 14 mmol/L 02/16/22 06:20 BUN 15 mg/dL (9-20) 02/16/22 06:20 Creatinine 0.7 mg/dL (0.8-1.3) L 02/16/22 06:20 Estimated GFR > 60 ml/min 02/16/22 06:20 BUN/Creatinine Ratio 21 % 02/16/22 06:20 Glucose 117 mg/dL (75-100) H 02/16/22 06:20 Calcium 8.4 mg/dL (8.4-10.2) 02/16/22 06:20 Magnesium 1.90 mg/dL (1.7-2.3) 02/16/22 06:20 Total Bilirubin 0.80 mg/dL (0.1-1.2) 02/15/22 00:03 AST 32 units/L (5-40) 02/15/22 00:03 ALT 18 units/L (7-56) 02/15/22 00:03 Alkaline Phosphatase 89 units/L (35-129) 02/15/22 00:03 Total Creatine Kinase 171 units/L (55-170) H 02/15/22 23:46 CK-MB (CK-2) 10.3 ng/mL (0.0-4.0) H 02/15/22 23:46 CK-MB (CK-2) Rel Index 6.0 (0-4) H 02/15/22 23:46 Troponin T 0.073 ng/mL (0.00-0.029) H 02/15/22 23:46 Total Protein 6.9 g/dL (6.3-8.2) 02/15/22 00:03 Albumin 4.1 g/dL (3.9-5) 02/15/22 00:03 Albumin/Globulin Ratio 1.5 % 02/15/22 00:03 Triglycerides 127 mg/dL (2-149) 02/15/22 00:03 Cholesterol 91 mg/dL (50-199) 02/15/22 00:03 LDL Cholesterol Direct 52 mg/dL (50-130) 02/15/22 00:03 HDL Cholesterol 20 mg/dL (40-59) L 02/15/22 00:03 Cholesterol/HDL Ratio 4.55 % 02/15/22 00:03 Graves/IV: Voiding Method Toilet Active Medications - Current Medications Current Medications: Generic Name Dose Route Start Last Admin Trade Name Freq PRN Reason Stop Dose Admin Acetaminophen 650 mg 02/15/22 08:35 Acetaminophen 325 Mg Tab PO Q4H PRN Pain MILD(1-3)/Fever >100.5/[place] Albuterol 2.5 mg 02/15/22 09:29 Albuterol 2.5 Mg/3 Ml Nebu IH Q4H PRN Shortness Of Breath Amlodipine Besylate 10 mg 02/16/22 10:00 Amlodipine 10 Mg Tab PO DAILY MARY Carvedilol 3.125 mg 02/15/22 10:00 02/15/22 22:44 Carvedilol 3.125 Mg Tab PO 3.125 mg BID MARY Administration Enoxaparin Sodium 40 mg 02/15/22 10:00 02/15/22 10:06 Enoxaparin 40 Mg/0.4 Ml Inj SUB-Q 40 mg QDAY MARY Administration Famotidine 20 mg 02/15/22 10:00 02/15/22 22:44 Famotidine 20 Mg Tab PO 20 mg BID MARY Administration Furosemide 40 mg 02/15/22 10:00 02/15/22 10:06 Furosemide 40 Mg/4 Ml Inj IV Not Given QDAY MARY Guaifenesin 10 ml 02/15/22 10:05 Guaifenesin Dm 200/20 Mg Oral Liqd 10 Ml PO Q4H PRN Cough Hydromorphone HCl 0.5 mg 02/15/22 08:35 Hydromorphone 1 Mg/1 Ml Inj IV Q3H PRN Pain , Severe (7-10) Azithromycin 500 mg in 250 mls @ 250 mls/hr 02/15/22 11:00 02/15/22 15:03 Zithromax/Ns IV 250 mls/hr Q24H MARY Administration Ceftriaxone Sodium 2 gm in 100 mls @ 200 mls/hr 02/15/22 11:00 02/15/22 15:03 Rocephin/Ns 2 Gm/100 Ml IV 200 mls/hr Q24H MARY Administration Protocol Naloxone HCl 0.1 mg 02/15/22 08:35 Naloxone 0.4 Mg/1 Ml Inj IV Q2MIN PRN Res Rate </= 8 or 02 SAT < 92% Ondansetron HCl 4 mg 02/15/22 08:35 Ondansetron 4 Mg/2 Ml Inj IV Q8H PRN Nausea And Vomiting Oxycodone/Acetaminophen 1 tab 02/15/22 08:35 Oxycodone /Acetaminophen 5-325mg Tab PO Q6H PRN Pain, Moderate (4-6) Sodium Chloride 10 ml 02/15/22 10:00 02/15/22 22:44 Sodium Chloride 0.9% 10 Ml Flush Syringe IV 10 ml BID MARY Administration Sodium Chloride 10 ml 02/15/22 08:35 Sodium Chloride 0.9% 10 Ml Flush Syringe IV PRN PRN LINE FLUSH
[2022-02-16] MEDS: carvediloL 3.125 MG TAB PO SCH ×2 (09:53→22:54)
[2022-02-16] MEDS: ENOXAPARIN 40 MG/0.4 ML INJ SUB-Q SCH (09:53)
[2022-02-16] MEDS: FAMOTIDINE 20 MG TAB PO SCH ×2 (09:53→22:52)
[2022-02-16] MEDS: amLODIPine 10 MG TAB PO SCH (09:54)
[2022-02-16] MEDS: FUROSEMIDE 40 MG/4 ML INJ IV SCH (10:10)
--- NOTE | 2022-02-16 10:17 | Consultation ---
History of Present Illness Consult date: 02/16/22 Requesting physician: MAHENDRA BHAKTA Consult reason: elevated troponin History of present illness: Patient is a 41-year-old male with a past medical history of hypertension, Raynaud's syndrome, and tobacco abuse who presented to the ED with a complaint of coughing up blood which has been occurring intermittently for about 2 months. Patient was recently admitted to the hospital on 02/02/2022 and left AMA on 02/04/2022 for similar complaints. On arrival to the hospital yesterday patient was found to be hypoxic with an O2 sat of 77% on room air. Furthermore patient is found to be anemic with a hemoglobin of 7 and CXR showed right-sided pneumonia. He endorses some lightheadedness and near syncope. At time of interview patient denies nausea, vomiting, fevers, chills, orthopnea, or chest pain. Patient was previously seen by our practice during last admission but has not followed up in the office. Cardiology is consulted for shortness of breath and elevated troponin. Past History Past Medical History: hypertension, other (Raynaud's syndrome) Past Surgical History: Other (Toe surgery) Social history: smoking, alcohol abuse, other (Recreational drug use) Family history: no significant family history Medications and Allergies Allergies Allergy/AdvReac Type Severity Reaction Status Date / Time No Known Allergies Allergy Verified 12/18/21 10:12 Home Medications Medication Instructions Recorded Confirmed Last Taken Type amLODIPine 10 mg PO BID 11/06/21 02/15/22 12/17/21 History Albuterol Mdi (or & Nicu Only) 2 puff IH QID PRN #8.5 gram 12/31/21 02/15/22 Unknown Rx [ProAir HFA Inhaler] predniSONE [Deltasone] 40 mg PO QDAY #10 tab 12/31/21 02/15/22 Unknown Rx Active Meds: Active Medications Acetaminophen (Acetaminophen 325 Mg Tab) 650 mg PO Q4H PRN PRN Reason: Pain MILD(1-3)/Fever >100.5/[place] Albuterol (Albuterol 2.5 Mg/3 Ml Nebu) 2.5 mg IH Q4H PRN PRN Reason: Shortness Of Breath Amlodipine Besylate (Amlodipine 10 Mg Tab) 10 mg PO DAILY MARY Last Admin: 02/16/22 09:54 Dose: 10 mg Carvedilol (Carvedilol 3.125 Mg Tab) 3.125 mg PO BID [facility] Last Admin: 02/16/22 09:53 Dose: 3.125 mg Enoxaparin Sodium (Enoxaparin 40 Mg/0.4 Ml Inj) 40 mg SUB-Q QDAY [facility] Last Admin: 02/16/22 09:53 Dose: 40 mg Famotidine (Famotidine 20 Mg Tab) 20 mg PO BID [facility] Last Admin: 02/16/22 09:53 Dose: 20 mg Furosemide (Furosemide 40 Mg/4 Ml Inj) 40 mg IV QDAY [facility] Last Admin: 02/16/22 10:10 Dose: 40 mg Guaifenesin (Guaifenesin Dm 200/20 Mg Oral Liqd 10 Ml) 10 ml PO Q4H PRN PRN Reason: Cough Hydromorphone HCl (Hydromorphone 1 Mg/1 Ml Inj) 0.5 mg IV Q3H PRN PRN Reason: Pain , Severe (7-10) Azithromycin (Zithromax/Ns) 500 mg in 250 mls @ 250 mls/hr IV Q24H [facility] Last Admin: 02/15/22 15:03 Dose: 250 mls/hr Ceftriaxone Sodium (Rocephin/Ns 2 Gm/100 Ml) 2 gm in 100 mls @ 200 mls/hr IV Q24H [facility]; Protocol Last Admin: 02/15/22 15:03 Dose: 200 mls/hr Naloxone HCl (Naloxone 0.4 Mg/1 Ml Inj) 0.1 mg IV Q2MIN PRN PRN Reason: Res Rate </= 8 or 02 SAT < 92% Ondansetron HCl (Ondansetron 4 Mg/2 Ml Inj) 4 mg IV Q8H PRN PRN Reason: Nausea And Vomiting Oxycodone/Acetaminophen (Oxycodone /Acetaminophen 5-325mg Tab) 1 tab PO Q6H PRN PRN Reason: Pain, Moderate (4-6) Sodium Chloride (Sodium Chloride 0.9% 10 Ml Flush Syringe) 10 ml IV BID [facility] Last Admin: 02/16/22 09:54 Dose: 10 ml Sodium Chloride (Sodium Chloride 0.9% 10 Ml Flush Syringe) 10 ml IV PRN PRN PRN Reason: LINE FLUSH Review of Systems All systems: negative Physical Examination Vital Signs Temp Pulse Resp BP Pulse Ox 98.2 F 90 18 133/88 100 02/14/22 23:15 02/14/22 23:15 02/14/22 23:15 02/14/22 23:15 02/14/22 23:15 General appearance: no acute distress HEENT: Positive: Normocephaly Neck: Positive: trachea midline Cardiac: Positive: Reg Rate and Rhythm Lungs: Positive: Decreased Breath Sounds Neuro: Positive: Grossly Intact Abdomen: Positive: Soft Skin: Negative: Rash, Suspicious Lesions, Ulceration Extremities: Present: upper extr. pulses Results 02/16/22 06:20 02/16/22 06:20 Cardiac Enzymes 02/15/22 Range/Units 23:46 CK-MB (CK-2) 10.3 H (0.0-4.0) ng/mL CBC 02/16/22 Range/Units 06:20 Hgb 7.0 L (11.8-15.2) gm/dl Hct 22.3 L (35.5-45.6) % Comprehensive Metabolic Panel 02/16/22 Range/Units 06:20 Sodium 138 (137-145) mmol/L Potassium 3.9 (3.6-5.0) mmol/L Chloride 102.0 (98-107) mmol/L Carbon Dioxide 26 (22-30) mmol/L BUN 15 (9-20) mg/dL Creatinine 0.7 L (0.8-1.3) mg/dL Glucose 117 H (75-100) mg/dL Calcium 8.4 (8.4-10.2) mg/dL - Imaging and Cardiology Echo: report reviewed EKG interpretations - Telemetry EKG Rhythm: Sinus Tachycardia - EKG Sinus rhythms and dysrhythmias: sinus tachycardia Chamber hypertrophy or enlargement: left ventricular hypertro Repolarization changes or abnormalities: nonspecific abnormality, ST segment, and/or T wave Myocardial infarction: septal DE (old age or ind Assessment and Plan Patient is a 41-year-old male with a past medical history of hypertension, Raynaud's syndrome, and tobacco abuse who presented to the ED with a complaint of coughing up blood which has been interim for about 2-month and was previously here on 02/02/2022 for similar complaints Acute respiratory failure-pulmonology following NSTEMI suspect type 2 Atypical pneumonia? Anemia Hemoptysis Hypertension History of tobacco abuse Echo 02/02/2022-EF 50 to 55% moderate concentric LVH. Mild diastolic dysfunction is present. Impaired relaxation pattern. Right ventricle systolic function is normal Plan: EKG shows sinus rhythm 82 LAFB and poor R wave progression With nonspecific ST- T's. No acute ischemic changes Troponins noted to be minimally elevated 0.063-0.073. Patient denies any complaints of chest pain. Suspect troponin elevation related to hemoptysis, anemia, and pneumonia Patient remains chest pain-free and denies any complaints of chest pain Patient currently on amlodipine, aspirin, Lipitor Due to troponin elevation we will schedule patient for Lexiscan MPI stress test in the AM. N.p.o. after midnight Patient seen in conjunction with Dr. Mukherjee who agrees with this plan of care - Patient Problems (1) Acute respiratory failure with hypoxia Current Visit: Yes Status: Acute (2) Elevated troponin Current Visit: Yes Status: Acute (3) Anemia Current Visit: No Status: Acute (4) Hx of frostbite Current Visit: No Status: Acute (5) Hypertension Current Visit: No Status: Acute
--- NOTE | 2022-02-16 11:22 | Electrocardiograph Report ---
[facility] Test Date: 2022-02-15 Test Time: 14:25:53 Pat Name: BOUBACAR APARICIO Department: Room: A361 1 Gender: M Line Inspector: LUIS A : 1980 Requested By: WALDEMAR JOHNSON Order Number: [id number] Reading MD: Denis Mukherjee Measurements Intervals [place] Rate: 82 P: 40 [place]: 169 QRS: -53 QRSD: 119 T: 63 QT: 377 QTc: 441 Interpretive Statements Sinus rhythm lad and lafb poor r wave progression nonspecific st-t Compared to ECG 02/14/2022 23:10:28 Electronically Signed On 02-16-2022 11:22:18 EDT by Denis Mukherjee
--- NOTE | 2022-02-16 12:04 | Consultation ---
History of Present Illness - Reason for Consult Consult date: 02/16/22 pneumonia, hemoptysis, homeless Requesting physician: MAHENDRA BHAKTA - History of Present Illness The patient is a 41-year-old male with hypertension, CHF, polysubstance abuse was admitted with cough, shortness of breath and hemoptysis going on for about 2 months now. He thinks he is getting worse. Noted to be hypoxic in the ER, chest x-ray showed right-sided pneumonia. Patient had recently come to the emergency room on 02/02/2022, showed bilateral groundglass opacities representing pulmonary edema or atypical infection was admitted but left AMA. Patient is homeless, lives in shelters. ID consulted for additional evaluation. Patient denies any substance abuse. Reports he is COVID vaccinated, also boosted. WBC 9.8, platelets 364. Review of Systems: Per HPI Past History Past Medical History: hypertension, other (Raynaud's syndrome) Past Surgical History: Other (Toe surgery) Social history: smoking, alcohol abuse, other (Recreational drug use) Family history: no significant family history Medications and Allergies Allergies Allergy/AdvReac Type Severity Reaction Status Date / Time No Known Allergies Allergy Verified 12/18/21 10:12 Home Medications Medication Instructions Recorded Confirmed Last Taken Type amLODIPine 10 mg PO BID 11/06/21 02/15/22 12/17/21 History Albuterol Mdi (or & Nicu Only) 2 puff IH QID PRN #8.5 gram 12/31/21 02/15/22 Unknown Rx [ProAir HFA Inhaler] predniSONE [Deltasone] 40 mg PO QDAY #10 tab 12/31/21 02/15/22 Unknown Rx Active Meds: Active Medications Acetaminophen (Acetaminophen 325 Mg Tab) 650 mg PO Q4H PRN PRN Reason: Pain MILD(1-3)/Fever >100.5/[place] Albuterol (Albuterol 2.5 Mg/3 Ml Nebu) 2.5 mg IH Q4H PRN PRN Reason: Shortness Of Breath Amlodipine Besylate (Amlodipine 10 Mg Tab) 10 mg PO DAILY [facility] Last Admin: 02/16/22 09:54 Dose: 10 mg Carvedilol (Carvedilol 3.125 Mg Tab) 3.125 mg PO BID [facility] Last Admin: 02/16/22 09:53 Dose: 3.125 mg Enoxaparin Sodium (Enoxaparin 40 Mg/0.4 Ml Inj) 40 mg SUB-Q QDAY [facility] Last Admin: 02/16/22 09:53 Dose: 40 mg Famotidine (Famotidine 20 Mg Tab) 20 mg PO BID [facility] Last Admin: 02/16/22 09:53 Dose: 20 mg Furosemide (Furosemide 40 Mg/4 Ml Inj) 40 mg IV QDAY [facility] Last Admin: 02/16/22 10:10 Dose: 40 mg Guaifenesin (Guaifenesin Dm 200/20 Mg Oral Liqd 10 Ml) 10 ml PO Q4H PRN PRN Reason: Cough Hydromorphone HCl (Hydromorphone 1 Mg/1 Ml Inj) 0.5 mg IV Q3H PRN PRN Reason: Pain , Severe (7-10) Azithromycin (Zithromax/Ns) 500 mg in 250 mls @ 250 mls/hr IV Q24H [facility] Last Admin: 02/15/22 15:03 Dose: 250 mls/hr Ceftriaxone Sodium (Rocephin/Ns 2 Gm/100 Ml) 2 gm in 100 mls @ 200 mls/hr IV Q2 4H [facility]; Protocol Last Admin: 02/15/22 15:03 Dose: 200 mls/hr Naloxone HCl (Naloxone 0.4 Mg/1 Ml Inj) 0.1 mg IV Q2MIN PRN PRN Reason: Res Rate </= 8 or 02 SAT < 92% Ondansetron HCl (Ondansetron 4 Mg/2 Ml Inj) 4 mg IV Q8H PRN PRN Reason: Nausea And Vomiting Oxycodone/Acetaminophen (Oxycodone /Acetaminophen 5-325mg Tab) 1 tab PO Q6H PRN PRN Reason: Pain, Moderate (4-6) Sodium Chloride (Sodium Chloride 0.9% 10 Ml Flush Syringe) 10 ml IV BID [facility] Last Admin: 02/16/22 09:54 Dose: 10 ml Sodium Chloride (Sodium Chloride 0.9% 10 Ml Flush Syringe) 10 ml IV PRN PRN PRN Reason: LINE FLUSH Physical Examination - Physical Exam Narrative exam: Physical Exam: Constitutional: Alert, cooperative. No acute distress Head, Ears, Nose: Normocephalic, atraumatic. External ears, nose normal Eyes: Conjunctivae/corneas clear. No icterus. No ptosis. Neck: Supple, no meningeal signs Cardiovascular: S1, S2 + Respiratory: Few right-sided crackles GI: Soft, non-tender; bowel sounds normal. No peritoneal signs Musculoskeletal: No pedal edema, no cyanosis. Skin: No rash or abscess Hem/Lymphatic: No palpable cervical or supraclavicular nodes. No lymphangitis Psych: Mood ok. Affect normal Neurological: Awake, alert, oriented. No gross abnormality - Constitutional Vitals: Vital Signs Temp Pulse Resp BP Pulse Ox 97.7 F 81 18 115/72 98 02/16/22 05:03 02/16/22 09:54 02/16/22 05:03 02/16/22 09:54 02/16/22 10:00 Temperature -Last 24 Hours Temperature 97.7 F Temperature 98.7 F Results - Labs CBC & Chem 7: 02/16/22 06:20 02/16/22 06:20 Labs: Abnormal lab results 02/15/22 02/16/22 02/16/22 Range/Units 23:46 06:20 06:20 Hgb 7.0 L (11.8-15.2) gm/dl Hct 22.3 L (35.5-45.6) % Creatinine 0.7 L (0.8-1.3) mg/dL Glucose 117 H (75-100) mg/dL Total Creatine Kinase 171 H (55-170) units/L CK-MB (CK-2) 10.3 H (0.0-4.0) ng/mL CK-MB (CK-2) Rel Index 6.0 H (0-4) Troponin T 0.073 H (0.00-0.029) ng/mL - Imaging and Cardiology Chest x-ray: report reviewed, image reviewed (some R sided patchy infiltrates) Assessment and Plan Cultures: Sputum pending A/P: 41-year-old male with hypertension, CHF, polysubstance abuse was admitted with cough, shortness of breath and hemoptysis going on for about 2 months now. He thinks he is getting worse. Noted to be hypoxic in the ER, chest x-ray showed right-sided pneumonia. Patient had recently come to the emergency room on 02/02/2022, showed bilateral groundglass opacities representing pulmonary edema or atypical infection was admitted but left AMA: #Bilateral pneumonia: ?atypical. #Hemoptysis #Homelessness #?polysubstance abuse: Patient denied it to me. Recs: Continue ceftriaxone, azithromycin for now HIV, written informed consent obtained from patient, handed over to RN Urinary tox screen Urinary Legionella and pneumococcal antigen Follow-up COVID-19 PCR MRSA nasal PCR Follow-up sputum culture Amber Rahman MD, FACP, [facility] O: [phone] F: [phone] C: [phone]
--- NOTE | 2022-02-16 13:07 | Progress Note ---
Assessment and Plan Acute hypoxemic respiratory failure Bilateral pulmonary infiltrates (atypical pneumonia versus pulmonary edema) CHF (HFpEF) Streaky hemoptysis Tobacco use disorder Hypertension Chest pain PUI COVID-19 Anemia that is microcytic - continue airborne and contact isolation - follow COVID-19 test result - follow AFB smears and cultures - follow HIV test result - gentle diuresis while following electrolytes - complete empiric CAP AB's with Rocephin and Zithromax - continue to wean supplemental oxygen to keep O2 sats > 90% - bronchodilators (MYRNA) with pulm hygiene per RT - avoid nephrotoxins, renally dose all medications - mobility protocols to prevent pressure ulcers - PT/OT as tolerated - prn analgesia per pain score - Wound care per RN/WCN - accuchecks with glycemic control per SSI for target blood glucose < 180 mg/dL - tobacco abstinence strongly counseled at the bedside - home oxygen evaluation at discharge - GI & VTE prophylaxis - Flu & pneumovax per protocol - Pulmonary out patient follow up for PFTs and optimization of respiratory status - continue other care per attending / other consultants ... re-evaluate in am & prn Subjective Date of service: 02/16/22 Interval history: Patient is seen today for: Acute hypoxemic respiratory failure; Pneumonia versus pulmonary edema; HFpEF; Hemoptysis; PUI COVID-19 Seen and examined at bedside; 24hour events reviewed; nursing and respiratory care staff consulted; no adverse overnight events reported to me; resting peacefully in bed; remains on supplemental oxygen; Objective Vital Signs - 12hr 02/16/22 02/16/22 02/16/22 02:00 05:03 09:53 Temperature 97.7 F Pulse Rate 87 81 81 Respiratory 18 Rate Blood Pressure 103/53 115/72 O2 Sat by Pulse 98 Oximetry 02/16/22 02/16/22 09:54 10:00 Temperature Pulse Rate 81 Respiratory Rate Blood Pressure 115/72 O2 Sat by Pulse 98 Oximetry Constitutional: no acute distress Eyes: non-icteric ENT: oropharynx moist Neck: supple, no lymphadenopathy, no JVD Effort: normal Ascultation: Bilateral: rhonchi Percussion: Bilateral: not dull Cardiovascular: regular rate and rhythm Gastrointestinal: normoactive bowel sounds, soft, non-tender, non-distended Integumentary: normal Extremities: no cyanosis, no edema, pink and warm, pulses normal, no ischemia or petechiae Neurologic: normal mental status, non-focal exam, pupils equal and round, motor strength normal and Psychiatric: mood appropriate, affect normal CBC and BMP: 02/16/22 06:20 02/16/22 06:20 Abnormal lab findings: Abnormal Labs 02/15/22 02/15/22 02/15/22 00:03 00:03 23:46 RBC 3.19 L Hgb 7.2 L Hct 22.9 L MCV 72 L MCH 23 L MCHC 31 L RDW 19.3 H [place] % (Auto) 11.0 H [place] # (Auto) 1.1 H Seg Neutrophils % 72.9 H Creatinine 0.7 L Glucose 128 H Total Creatine Kinase 171 H CK-MB (CK-2) 10.3 H CK-MB (CK-2) Rel Index 6.0 H Troponin T 0.063 H 0.073 H HDL Cholesterol 20 L 02/16/22 02/16/22 06:20 06:20 RBC Hgb 7.0 L Hct 22.3 L MCV MCH MCHC RDW [place] % (Auto) [place] # (Auto) Seg Neutrophils % Creatinine 0.7 L Glucose 117 H Total Creatine Kinase CK-MB (CK-2) CK-MB (CK-2) Rel Index Troponin T HDL Cholesterol Allied health notes reviewed: nursing
[2022-02-16] MEDS: cefTRIAXone/NS 2 GM/100 ML 2 GM/100 ML BAG IV SCH (16:06)
[2022-02-16] MEDS: AZITHROMYCIN/NS 500 MG/250 ML 500 MG/250 ML BAG IV SCH (17:01)
[2022-02-16 18:32] LABS: Amphetamine Screen,Urine Negative; Benzodiazepines Screen,Urine Negative; Cannabinoid Screen,Urine Negative; Cocaine Screen,Urine Negative; Methadone Screen,Urine Negative; Opiate Screen,Urine Negative
--- NOTE | 2022-02-16 19:41 | Progress Note ---
Assessment and Plan The patient is a 41-year-old male present with a chief complaint of shortness of breath and cough as well as hemoptysis the patient was admitted to this hospital 02/02/2022 for the same but left AMA 02/04/2022. Patient complains of substernal chest pain , shortness of breath with hemoptysis. Patient denies history of fever. In ER patient was found to be hypoxic ,O2 saturation 77% on room air in the ED. Patient was placed on supplemental O2 Patient denies nausea vomiting or abdominal pain Denies headache dizziness weakness or numbness Patient is homeless was living in intermediate and in tents Initial work-up consistent with chest x-ray findings of right-sided pneumonia /infiltrate mild elevation of troponins And hypoxia. Patients has history of hypertension and Heart failure. Patient has history of smoking 2 cigaretts a day x 25 years. Denies alcohol or drug abuse. Not . Has no children. 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 No known drug allergies. Patient awake, resting on room air. O2 saturation 95%. Says coughing up thick white sputum. Denies shortness of breath or cough at this time. Patient afebrile. No Leukocytosis. Blood pressure 108/68, pulse 85, respirations 16. Chest xray done 02/14/22 reported Findings suggesting pulmonary edema. There is also increased opacification within the right lung which appears similar to chest radiograph dated 02/02/2022, at which time the CT indicated possible atypical infectious process. Patient is on Zithromax, ceftriaxone, S/C Lovenox, Famotidine. - Patient Problems (1) Acute respiratory failure with hypoxia Current Visit: Yes Status: Acute Plan to address problem: O2 saturation improved. Patient presently on room air, O2 saturation 95%. Recommend O2 2 litres via nasal canula. Albuterol inhaler 2 puffs po q 6 hours prn for shortness of breath. Continue S/C Lovenox Continue Famotidine. (2) Acute exacerbation of CHF (congestive heart failure) Current Visit: No Status: Acute Plan to address problem: Patient is on Coreg and Lasix. Management as per cardiology. (3) Anemia Current Visit: No Status: Acute Plan to address problem: Patients recent HGB 7.2. If HGB droos below 7, recommend blood transfusion. Management as per primary care. (4) Hypertension Current Visit: No Status: Acute Plan to address problem: Management as per primary care. Subjective Date of service: 02/16/22 Interval history: The patient is a 41-year-old male present with a chief complaint of shortness of breath and cough as well as hemoptysis the patient was admitted to this hospital 02/02/2022 for the same but left AMA 02/04/2022. Patient complains of substernal chest pain , shortness of breath with hemoptysis. Patient denies history of fever. In ER patient was found to be hypoxic ,O2 saturation 77% on room air in the ED. Patient was placed on supplemental O2 Patient denies nausea vomiting or abdominal pain Denies headache dizziness weakness or numbness Patient is homeless was living in intermediate and in tents Initial work-up consistent with chest x-ray findings of right-sided pneumonia /infiltrate mild elevation of troponins And hypoxia. Patients has history of hypertension and Heart failure. Patient has history of smoking 2 cigaretts a day x 25 years. Denies alcohol or drug abuse. Not . Has no children. 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 No known drug allergies. Patient awake, resting on room air. O2 saturation 95%. Says coughing up thick white sputum. Denies shortness of breath or cough at this time. Patient afebrile. No Leukocytosis. Blood pressure 108/68, pulse 85, respirations 16. Chest xray done 02/14/22 reported Findings suggesting pulmonary edema. There is also increased opacification within the right lung which appears similar to chest radiograph dated 02/02/2022, at which time the CT indicated possible atypical infectious process. Patient is on Zithromax, ceftriaxone, S/C Lovenox, Famotidine. Objective Vital Signs - 12hr 02/16/22 02/16/22 02/16/22 09:50 09:53 09:54 Temperature Pulse Rate 81 81 81 Respiratory Rate Blood Pressure 115/72 115/72 115/72 O2 Sat by Pulse 96 Oximetry 02/16/22 02/16/22 10:00 15:44 Temperature 98.5 F Pulse Rate 85 Respiratory 18 16 Rate Blood Pressure 108/68 O2 Sat by Pulse 96 95 Oximetry Constitutional: no acute distress, alert Eyes: non-icteric ENT: oropharynx moist Neck: supple, no lymphadenopathy, no JVD Effort: normal Ascultation: Bilateral: rhonchi Percussion: Bilateral: not dull Cardiovascular: regular rate and rhythm Gastrointestinal: normoactive bowel sounds, soft, non-tender, non-distended Integumentary: normal Extremities: no cyanosis, no edema, pink and warm, pulses normal, no ischemia or petechiae Neurologic: normal mental status, non-focal exam, pupils equal and round, motor strength normal and Psychiatric: mood appropriate, affect normal CBC and BMP: 02/16/22 06:20 02/16/22 06:20 Abnormal lab findings: Abnormal Labs 02/15/22 02/15/22 02/15/22 00:03 00:03 23:46 RBC 3.19 L Hgb 7.2 L Hct 22.9 L MCV 72 L MCH 23 L MCHC 31 L RDW 19.3 H [place] % (Auto) 11.0 H [place] # (Auto) 1.1 H Seg Neutrophils % 72.9 H Creatinine 0.7 L Glucose 128 H Total Creatine Kinase 171 H CK-MB (CK-2) 10.3 H CK-MB (CK-2) Rel Index 6.0 H Troponin T 0.063 H 0.073 H HDL Cholesterol 20 L 02/16/22 02/16/22 02/16/22 06:20 06:20 12:42 RBC Hgb 7.0 L Hct 22.3 L MCV MCH MCHC RDW [place] % (Auto) [place] # (Auto) Seg Neutrophils % Creatinine 0.7 L Glucose 117 H Total Creatine Kinase CK-MB (CK-2) CK-MB (CK-2) Rel Index Troponin T 0.091 H HDL Cholesterol Chest x-ray: report reviewed, image reviewed Additional Studies: CHEST 2 VIEWS 02/14/22 INDICATION / CLINICAL INFORMATION: chestpain. COMPARISON: Chest CT and radiograph dated 02/02/2022 FINDINGS: SUPPORT DEVICES: None. HEART / MEDIASTINUM: No significant abnormality. LUNGS / PLEURA: Mild pulmonary vascular indistinctness. There is also slight increased opacification within the right lung. This appears similar to the chest radiograph dated 02/02/2022. No pneumothorax. ADDITIONAL FINDINGS: No significant additional findings. IMPRESSION: 1. Findings suggesting pulmonary edema. 2. There is also increased opacification within the right lung which appears similar to chest radiograph dated 02/02/2022, at which time the CT indicated possible atypical infectious process. Allied health notes reviewed: nursing
[2022-02-17] MEDS ORDERED: REGADENOSON 0.4 MG/5 ML INJ IV ONE (07:08)
--- NOTE | 2022-02-17 09:55 | Progress Note ---
Assessment and Plan Acute hypoxemic respiratory failure Bilateral pulmonary infiltrates (atypical pneumonia versus pulmonary edema) CHF (HFpEF) Streaky hemoptysis Tobacco use disorder Hypertension Chest pain PUI COVID-19 Anemia that is microcytic - continue airborne and contact isolation - follow AFB smears and cultures - COVID-19 PCR negative - HIV test negative - ACS w/up per cardiology - continue care as below otherwise; - gentle diuresis while following electrolytes - complete empiric CAP AB's with Rocephin and Zithromax - continue to wean supplemental oxygen to keep O2 sats > 90% - bronchodilators (MYRNA) with pulm hygiene per RT - avoid nephrotoxins, renally dose all medications - mobility protocols to prevent pressure ulcers - PT/OT as tolerated - prn analgesia per pain score - Wound care per RN/WCN - accuchecks with glycemic control per SSI for target blood glucose < 180 mg/dL - tobacco abstinence strongly counseled at the bedside - home oxygen evaluation at discharge - GI & VTE prophylaxis - Flu & pneumovax per protocol - Pulmonary out patient follow up for PFTs and optimization of respiratory status - continue other care per attending / other consultants ... re-evaluate in am & prn Subjective Date of service: 02/17/22 Principal diagnosis: AHRF; Pneumonia versus pulmonary edema; HFpEF; Hemoptysis; PUI COVID-19 Interval history: Patient is seen today for: Acute hypoxemic respiratory failure; Pneumonia versus pulmonary edema; HFpEF; Hemoptysis; PUI COVID-19 Seen and examined at bedside; 24hour events reviewed; nursing and respiratory care staff consulted; no adverse overnight events reported to me; resting peacefully in bed; remains on supplemental oxygen at 2-3 L flow; coughed up his first sputum sample today; denies hemoptysis; denies fevers; denies chest pain Objective Vital Signs - 12hr 02/16/22 02/16/22 02/16/22 22:00 22:54 23:01 Temperature 99.0 F Pulse Rate 83 86 Respiratory 18 Rate Blood Pressure 109/53 118/64 O2 Sat by Pulse 96 97 Oximetry 02/17/22 02/17/22 02:00 05:18 Temperature 97.7 F Pulse Rate 90 77 Respiratory 18 Rate Blood Pressure 104/62 O2 Sat by Pulse 90 Oximetry Constitutional: no acute distress, alert Eyes: non-icteric ENT: oropharynx moist Neck: supple, no lymphadenopathy, no JVD Effort: normal Ascultation: Bilateral: rales (bases R>L) Percussion: Bilateral: not dull Cardiovascular: regular rate and rhythm Gastrointestinal: normoactive bowel sounds, soft, non-tender, non-distended Integumentary: normal Extremities: no cyanosis, no edema, pink and warm, pulses normal, no ischemia or petechiae Neurologic: normal mental status, non-focal exam, pupils equal and round, motor strength normal and Psychiatric: mood appropriate, affect normal CBC and BMP: 02/17/22 09:30 02/17/22 09:30 Abnormal lab findings: Abnormal Labs 02/15/22 02/15/22 02/15/22 00:03 00:03 23:46 RBC 3.19 L Hgb 7.2 L Hct 22.9 L MCV 72 L MCH 23 L MCHC 31 L RDW 19.3 H [place] % (Auto) 11.0 H [place] # (Auto) 1.1 H Seg Neutrophils % 72.9 H Creatinine 0.7 L Glucose 128 H Total Creatine Kinase 171 H CK-MB (CK-2) 10.3 H CK-MB (CK-2) Rel Index 6.0 H Troponin T 0.063 H 0.073 H HDL Cholesterol 20 L 02/16/22 02/16/22 02/16/22 06:20 06:20 12:42 RBC Hgb 7.0 L Hct 22.3 L MCV MCH MCHC RDW [place] % (Auto) [place] # (Auto) Seg Neutrophils % Creatinine 0.7 L Glucose 117 H Total Creatine Kinase CK-MB (CK-2) CK-MB (CK-2) Rel Index Troponin T 0.091 H HDL Cholesterol Allied health notes reviewed: nursing
[2022-02-17 10:08] LABS: Blood Urea Nitrogen 16 mg/dL (9-20); Calcium 8.4 mg/dL (8.4-10.2); Hemolysis Index 6
[2022-02-17 10:11] LABS: BUN/Creatinine Ratio 23
[2022-02-17 10:18] LABS: Hematocrit 26.4 % (35.5-45.6); Mean Corpuscular HGB Conc 30 % (32-34); Mean Corpuscular Volume 72 fl (84-94); Platelet Count 385 K/mm3 (140-440); Red Blood Count 3.68 M/mm3 (3.65-5.03); Red Cell Distribution Width 19.3 % (13.2-15.2)
[2022-02-17] MEDS: ENOXAPARIN 40 MG/0.4 ML INJ SUB-Q SCH (10:53)
[2022-02-17] MEDS: carvediloL 3.125 MG TAB PO SCH ×2 (10:53→21:14)
[2022-02-17] MEDS: FAMOTIDINE 20 MG TAB PO SCH ×2 (10:53→21:14)
[2022-02-17] MEDS: amLODIPine 10 MG TAB PO SCH (10:53)
[2022-02-17] MEDS: FUROSEMIDE 40 MG/4 ML INJ IV SCH (10:53)
[2022-02-17] MEDS: cefTRIAXone/NS 2 GM/100 ML 2 GM/100 ML BAG IV SCH (10:54)
[2022-02-17 11:07] LABS: Basophils % (Manual) 0 % (0.0-1.8); Total Cells Counted 100
[2022-02-17] MEDS: AZITHROMYCIN/NS 500 MG/250 ML 500 MG/250 ML BAG IV SCH (11:07)
[2022-02-17 11:12] LABS: Anisocytosis 1+; Hypochromasia 2+; Large Platelets Rare; Platelet Estimate Consistent w Auto; Poikilocytosis 1+
[2022-02-17 11:13] LABS: Ovalocytes Rare; Target Cells Few; Tear Drop Cells Rare
[2022-02-17] MEDS ORDERED: VANCOMYCIN 1,250 MG in SODIUM CHLORIDE 0.9% 500 ML 500 ML IV ONE (13:02)
--- NOTE | 2022-02-17 13:04 | Progress Note ---
Assessment and Plan Cultures: Sputum pending 02/16/2022 COVID-19 PCR: Negative 02/16/2022 HIV fourth-generation test: Nonreactive A/P: 41-year-old male with hypertension, CHF, polysubstance abuse was admitted with cough, shortness of breath and hemoptysis going on for about 2 months now. He thinks he is getting worse. Noted to be hypoxic in the ER, chest x-ray showed right-sided pneumonia. Patient had recently come to the emergency room on 02/02/2022, showed bilateral groundglass opacities representing pulmonary edema or atypical infection was admitted but left AMA: #Bilateral pneumonia: ?atypical. #Hemoptysis #Homelessness #?polysubstance abuse: Patient denied it to me. Urinary tox screen negative. Recs: Continue ceftriaxone, azithromycin for now IV vancomycin added, discontinue if MRSA nasal PCR/sputum culture is negative HIV, written informed consent obtained from patient, handed over to RN f/u urinary Legionella and pneumococcal antigen Follow-up sputum culture Low concern for TB Amber Rahman MD, FACP, [facility] ([facility]) O: [phone] F: [phone] C: [phone] Subjective Date of service: 02/17/22 Principal diagnosis: AHRF; Pneumonia versus pulmonary edema; HFpEF; Hemoptysis; PUI COVID-19 Interval history: No fever. Cough present. Give sputum sample to RN. Feeling slightly better. Objective - Exam Narrative Exam: Physical Exam: Constitutional: Alert, cooperative. No acute distress Head, Ears, Nose: Normocephalic, atraumatic. External ears, nose normal Eyes: Conjunctivae/corneas clear. No icterus. No ptosis. Neck: Supple, no meningeal signs Cardiovascular: S1, S2 + Respiratory: Few right-sided crackles GI: Soft, non-tender; bowel sounds normal. No peritoneal signs Musculoskeletal: No pedal edema, no cyanosis. Skin: No rash or abscess Hem/Lymphatic: No palpable cervical or supraclavicular nodes. No lymphangitis Psych: Mood ok. Affect normal Neurological: Awake, alert, oriented. No gross abnormality - Constitutional Vitals: Vital Signs Temp Pulse Resp BP Pulse Ox 97.7 F 77 20 104/62 96 02/17/22 05:18 02/17/22 05:18 02/17/22 10:07 02/17/22 05:18 02/17/22 10:07 Temperature -Last 24 Hours Temperature 97.7 F Temperature 99.0 F Temperature 98.5 F - Labs CBC & Chem 7: 02/17/22 09:30 02/17/22 09:30 Labs: Abnormal lab results 02/16/22 02/17/22 02/17/22 Range/Units 12:42 09:30 09:30 Hgb 8.0 L (11.8-15.2) gm/dl Hct 26.4 L (35.5-45.6) % MCV 72 L (84-94) fl MCH 22 L (28-32) pg MCHC 30 L (32-34) % RDW 19.3 H (13.2-15.2) % Seg Neuts % (Manual) 73.0 H (40.0-70.0) % Monocytes % (Manual) 9.0 H (0.0-7.3) % Lymphocytes # (Manual) 0.7 L (1.2-5.4) K/mm3 Creatinine 0.7 L (0.8-1.3) mg/dL Glucose 105 H (75-100) mg/dL Troponin T 0.091 H (0.00-0.029) ng/mL
--- NOTE | 2022-02-17 13:45 | Progress Note ---
Assessment and Plan --PUI/high suspicion for COVID/ [place] PCR test is negative --Right-sided pneumonia; Community-acquired pneumonia In the setting of cough, hemoptysis, right lung lesion Patient has history of living in shelters and homeless Need to rule out tuberculosis Blood-borne isolation, sputum for AFB, sputum cultures Pulmonary ID following --Acute respiratory failure with hypoxia Current Visit: Yes Status: Acute Oxygen by nasal cannula Titrate O2 sats to more than 90% Multifactorial, underlying right-sided pneumonia Acute exacerbation of chronic diastolic congestive heart failure Wean oxygen as tolerated Home O2 evaluation at discharge -- Acute exacerbation of chronic diastolic CHF (congestive heart failure) Current Visit: Yes Status: Acute Diuretics, input output monitoring, low-sodium diet, fluid restriction LVEF 50 to 55% last month, cardiology evaluated in the past We will closely monitor and adjust management as needed --Anemia; Hb 7.2; Probably secondary to acute blood loss Closely monitor H&H, transfuse 1 unit of PRBC if needed --Non-ST elevation TX; Nonspecific elevation of troponin, patient had work-up during his last admission Medical management, stress test pending --Hypertension Current Visit: Yes Status: Acute Resume home medications --Polysubstance abuse. Tobacco, alcohol, recreational drugs Strongly advised to quit alcohol and recreational drugs Smoking cessation counseling done Follow urine toxicology --Full CODE STATUS; --DVT prophylaxis Current Visit: No Status: Acute SCDs, no pharmacologic anticoagulation in view of hemoptysis and anemia Disposition follow consultants recommendations Follow pending work-up, discharge when medically stable Waiting on AFB smear to come back, stress test pending Subjective Date of service: 02/17/22 Principal diagnosis: AHRF; Pneumonia versus pulmonary edema; HFpEF; Hemoptysis; PUI COVID-19 Interval history: Patient's chart and medications reviewed Patient seen and examined Patient feels slightly better Still has intermittent chest pain Hemoptysis significantly improved Vital signs noted Objective - Exam Narrative Exam: General appearance: Present: no acute distress, well-nourished, other - EENT Eyes: Present: PERRL, EOM intact - Neck Neck: Present: supple, normal ROM - Respiratory Respiratory effort: normal Respiratory: bilateral: diminished, rhonchi, negative: rales, wheezing - Cardiovascular Rhythm: regular Heart Sounds: Present: S1 & S2 - Extremities Extremities: no ischemia, No edema - Abdominal General gastrointestinal: soft, non-tender, non-distended, normal bowel sounds - Integumentary Integumentary: Present: clear, warm - Psychiatric Psychiatric: appropriate mood/affect, cooperative - Neurologic Neurologic: CNII-XII intact, moves all extremities - Constitutional Vitals: Vital Signs - 12hr 02/17/22 02/17/22 02/17/22 02:00 05:18 10:07 Temperature 97.7 F Pulse Rate 90 77 Respiratory 18 20 Rate Blood Pressure 104/62 O2 Sat by Pulse 90 96 Oximetry - Labs CBC & Chem 7: 02/17/22 09:30 02/17/22 09:30 Labs: Abnormal lab results 02/16/22 02/17/22 02/17/22 Range/Units 12:42 09:30 09:30 Hgb 8.0 L (11.8-15.2) gm/dl Hct 26.4 L (35.5-45.6) % MCV 72 L (84-94) fl MCH 22 L (28-32) pg MCHC 30 L (32-34) % RDW 19.3 H (13.2-15.2) % Seg Neuts % (Manual) 73.0 H (40.0-70.0) % Monocytes % (Manual) 9.0 H (0.0-7.3) % Lymphocytes # (Manual) 0.7 L (1.2-5.4) K/mm3 Creatinine 0.7 L (0.8-1.3) mg/dL Glucose 105 H (75-100) mg/dL Troponin T 0.091 H (0.00-0.029) ng/mL HEART Score - HEART Score Troponin: Troponin T 0.091 ng/mL (0.00-0.029) H 02/16/22 12:42
[2022-02-17] MEDS ORDERED: VANCOMYCIN 1,500 MG in SODIUM CHLORIDE 0.9% 500 ML 500 ML IV ONE (14:00)
[2022-02-17] MEDS ORDERED: VANCOMYCIN PHARMACY TO DOSE IV SCH (14:00)
[2022-02-17] MEDS ORDERED: LORazepam 2 MG/ML VIAL IV ONE (20:04)
[2022-02-18] MEDS: VANCOMYCIN 1,500 MG in SODIUM CHLORIDE 0.9% 500 ML 500 ML IV SCH ×2 (05:23→18:43)
[2022-02-18] MEDS: ENOXAPARIN 40 MG/0.4 ML INJ SUB-Q SCH (10:20)
[2022-02-18] MEDS: FUROSEMIDE 40 MG/4 ML INJ IV SCH (10:20)
[2022-02-18] MEDS: AZITHROMYCIN/NS 500 MG/250 ML 500 MG/250 ML BAG IV SCH (10:21)
[2022-02-18] MEDS: FAMOTIDINE 20 MG TAB PO SCH ×2 (10:25→22:07)
[2022-02-18] MEDS: carvediloL 3.125 MG TAB PO SCH ×2 (10:25→22:07)
[2022-02-18] MEDS: amLODIPine 10 MG TAB PO SCH (10:25)
--- NOTE | 2022-02-18 11:00 | Progress Note ---
Assessment and Plan Cultures: Sputum pending 02/16/2022 COVID-19 PCR: Negative 02/16/2022 HIV fourth-generation test: Nonreactive 02/17/2022 sputum culture: Oropharyngeal contamination. A/P: 41-year-old male with hypertension, CHF, polysubstance abuse was admitted with cough, shortness of breath and hemoptysis going on for about 2 months now. He thinks he is getting worse. Noted to be hypoxic in the ER, chest x-ray showed right-sided pneumonia. Patient had recently come to the emergency room on 02/02/2022, showed bilateral groundglass opacities representing pulmonary edema or atypical infection was admitted but left AMA: #Bilateral pneumonia: ?atypical. #Hemoptysis #Homelessness #?polysubstance abuse: Patient denied it to me. Urinary tox screen negative. Recs: Continue ceftriaxone, azithromycin for now, complete total 5 days IV vancomycin, discontinue if MRSA nasal PCR/sputum culture is negative f/u urinary Legionella and pneumococcal antigen sputum culture with oropharyngeal contamination Low concern for TB will get CT chest given persistent symptoms, compare with prior CT Amber Rahman MD, FACP, [facility] O: [phone] F: [phone] C: [phone] Subjective Date of service: 02/18/22 Principal diagnosis: AHRF; Pneumonia versus pulmonary edema; HFpEF; Hemoptysis; PUI COVID-19 Interval history: No fever. Cough present. Objective - Exam Narrative Exam: Physical Exam: Constitutional: Alert, cooperative. No acute distress Head, Ears, Nose: Normocephalic, atraumatic. External ears, nose normal Eyes: Conjunctivae/corneas clear. No icterus. No ptosis. Neck: Supple, no meningeal signs Cardiovascular: S1, S2 + Respiratory: Few right-sided crackles GI: Soft, non-tender; bowel sounds normal. No peritoneal signs Musculoskeletal: No pedal edema, no cyanosis. Skin: No rash or abscess Hem/Lymphatic: No palpable cervical or supraclavicular nodes. No lymphangitis Psych: Mood ok. Affect normal Neurological: Awake, alert, oriented. No gross abnormality - Constitutional Vitals: Vital Signs Temp Pulse Resp BP Pulse Ox 98.3 F 83 18 114/64 98 02/18/22 05:22 02/18/22 05:22 02/18/22 05:22 02/18/22 05:22 02/18/22 05:22 Temperature -Last 24 Hours Temperature 98.3 F Temperature 98.2 F Temperature 98.4 F - Labs CBC & Chem 7: 02/17/22 09:30 02/17/22 09:30 Labs: Abnormal lab results 02/17/22 Range/Units 09:30 Seg Neuts % (Manual) 73.0 H (40.0-70.0) % Monocytes % (Manual) 9.0 H (0.0-7.3) % Lymphocytes # (Manual) 0.7 L (1.2-5.4) K/mm3
[2022-02-18] MEDS: cefTRIAXone/NS 2 GM/100 ML 2 GM/100 ML BAG IV SCH (11:13)
--- NOTE | 2022-02-18 11:55 | Progress Note ---
Assessment and Plan Acute hypoxemic respiratory failure Bilateral pulmonary infiltrates (atypical pneumonia versus pulmonary edema) CHF (HFpEF) Streaky hemoptysis Tobacco use disorder Hypertension Chest pain PUI COVID-19 Anemia that is microcytic - follow CT chest - continue airborne and contact isolation - follow AFB smears and cultures - ACS w/up per cardiology - continue care as below otherwise; - gentle diuresis while following electrolytes - complete empiric CAP AB's with Rocephin, Vancomycin and Zithromax - continue to wean supplemental oxygen to keep O2 sats > 90% - bronchodilators (MYRNA) with pulm hygiene per RT - avoid nephrotoxins, renally dose all medications - mobility protocols to prevent pressure ulcers - PT/OT as tolerated - prn analgesia per pain score - Wound care per RN/WCN - accuchecks with glycemic control per SSI for target blood glucose < 180 mg/dL - tobacco abstinence strongly counseled at the bedside - home oxygen evaluation at discharge - GI & VTE prophylaxis - Flu & pneumovax per protocol - Pulmonary out patient follow up for PFTs and optimization of respiratory status - continue other care per attending / other consultants ... re-evaluate in am & prn Subjective Date of service: 02/18/22 Principal diagnosis: AHRF; Pneumonia versus pulmonary edema; HFpEF; Hemoptysis; PUI COVID-19 Interval history: Patient is seen today for: Acute hypoxemic respiratory failure; Pneumonia versus pulmonary edema; HFpEF; Hemoptysis; PUI COVID-19 Seen and examined at bedside; 24hour events reviewed; nursing and respiratory care staff consulted; no adverse overnight events reported to me; resting peacefully in bed; remains on supplemental oxygen at 2 liter flow; awaiting AFB smears; started on Vancomycin empirically; no emesis or overt aspiration Objective Vital Signs - 12hr 02/18/22 02/18/22 02:00 05:22 Temperature 98.3 F Pulse Rate 85 83 Respiratory 18 Rate Blood Pressure 114/64 O2 Sat by Pulse 98 Oximetry Constitutional: no acute distress, alert Eyes: non-icteric ENT: oropharynx moist Neck: supple, no lymphadenopathy, no JVD Effort: normal Ascultation: Bilateral: rales (bases R>L) Percussion: Bilateral: not dull Cardiovascular: regular rate and rhythm Gastrointestinal: normoactive bowel sounds, soft, non-tender, non-distended Integumentary: normal Extremities: no cyanosis, no edema, pink and warm, pulses normal, no ischemia or petechiae Neurologic: normal mental status, non-focal exam, pupils equal and round, motor strength normal and Psychiatric: mood appropriate, affect normal CBC and BMP: 02/17/22 09:30 02/17/22 09:30 Abnormal lab findings: Abnormal Labs 02/15/22 02/15/22 02/15/22 00:03 00:03 23:46 RBC 3.19 L Hgb 7.2 L Hct 22.9 L MCV 72 L MCH 23 L MCHC 31 L RDW 19.3 H [place] % (Auto) 11.0 H [place] # (Auto) 1.1 H Seg Neutrophils % 72.9 H Seg Neuts % (Manual) Monocytes % (Manual) Lymphocytes # (Manual) Creatinine 0.7 L Glucose 128 H Total Creatine Kinase 171 H CK-MB (CK-2) 10.3 H CK-MB (CK-2) Rel Index 6.0 H Troponin T 0.063 H 0.073 H HDL Cholesterol 20 L 02/16/22 02/16/22 02/16/22 06:20 06:20 12:42 RBC Hgb 7.0 L Hct 22.3 L MCV MCH MCHC RDW [place] % (Auto) [place] # (Auto) Seg Neutrophils % Seg Neuts % (Manual) Monocytes % (Manual) Lymphocytes # (Manual) Creatinine 0.7 L Glucose 117 H Total Creatine Kinase CK-MB (CK-2) CK-MB (CK-2) Rel Index Troponin T 0.091 H HDL Cholesterol 02/17/22 02/17/22 09:30 09:30 RBC Hgb 8.0 L Hct 26.4 L MCV 72 L MCH 22 L MCHC 30 L RDW 19.3 H [place] % (Auto) [place] # (Auto) Seg Neutrophils % Seg Neuts % (Manual) 73.0 H Monocytes % (Manual) 9.0 H Lymphocytes # (Manual) 0.7 L Creatinine 0.7 L Glucose 105 H Total Creatine Kinase CK-MB (CK-2) CK-MB (CK-2) Rel Index Troponin T HDL Cholesterol Allied health notes reviewed: nursing
--- NOTE | 2022-02-18 14:15 | Progress Note ---
Assessment and Plan --PUI/high suspicion for COVID/ [place]ales PCR test is negative --Right-sided pneumonia; Community-acquired pneumonia In the setting of cough, hemoptysis, right lung lesion Patient has history of living in shelters and homeless Need to rule out tuberculosis Blood-borne isolation, sputum for AFB, sputum cultures Pulmonary ID following --Acute respiratory failure with hypoxia Current Visit: Yes Status: Acute Oxygen by nasal cannula Titrate O2 sats to more than 90% Multifactorial, underlying right-sided pneumonia Acute exacerbation of chronic diastolic congestive heart failure Wean oxygen as tolerated Home O2 evaluation at discharge -- Acute exacerbation of chronic diastolic CHF (congestive heart failure) Current Visit: Yes Status: Acute Diuretics, input output monitoring, low-sodium diet, fluid restriction LVEF 50 to 55% last month, cardiology evaluated in the past We will closely monitor and adjust management as needed --Anemia; Hb 7.2; Probably secondary to acute blood loss Closely monitor H&H, transfuse 1 unit of PRBC if needed --Non-ST elevation [place]; Nonspecific elevation of troponin, patient had work-up during his last admission Medical management, stress test pending --Hypertension Current Visit: Yes Status: Acute Resume home medications --Polysubstance abuse. Tobacco, alcohol, recreational drugs Strongly advised to quit alcohol and recreational drugs Smoking cessation counseling done Follow urine toxicology --Full CODE STATUS; --DVT prophylaxis Current Visit: No Status: Acute SCDs, no pharmacologic anticoagulation in view of hemoptysis and anemia --Continue ceftriaxone, azithromycin for now, complete total 5 days IV vancomycin, discontinue if MRSA nasal PCR/sputum culture is negative f/u urinary Legionella and pneumococcal antigen, neg for HIV sputum culture with oropharyngeal contamination, Per ID Low concern for TB ordered CT chest given persistent symptoms to compare with prior CT Subjective Date of service: 02/18/22 Principal diagnosis: AHRF; Pneumonia versus pulmonary edema; HFpEF; Hemoptysis; PUI COVID-19 Interval history: Patient's chart and medications reviewed Patient seen and examined Patient feels slightly better Still has intermittent chest pain no Hemoptysis since admission Vital signs noted Objective - Exam Narrative Exam: General appearance: Present: no acute distress, well-nourished, other - EENT Eyes: Present: PERRL, EOM intact - Neck Neck: Present: supple, normal ROM - Respiratory Respiratory effort: normal Respiratory: bilateral: diminished, rhonchi, negative: rales, wheezing - Cardiovascular Rhythm: regular Heart Sounds: Present: S1 & S2 - Extremities Extremities: no ischemia, No edema - Abdominal General gastrointestinal: soft, non-tender, non-distended, normal bowel sounds - Integumentary Integumentary: Present: clear, warm - Psychiatric Psychiatric: appropriate mood/affect, cooperative - Neurologic Neurologic: CNII-XII intact, moves all extremities - Constitutional Vitals: Vital Signs - 12hr 02/18/22 02/18/22 02/18/22 05: 10:00 10:37 Temperature 98.3 F 98.2 F Pulse Rate 83 88 Respiratory 18 18 Rate Blood Pressure 114/64 128/74 O2 Sat by Pulse 98 98 87 Oximetry 02/18/22 12:00 Temperature Pulse Rate Respiratory Rate Blood Pressure O2 Sat by Pulse 96 Oximetry - Labs CBC & Chem 7: 02/17/22 09:30 02/17/22 09:30 HEART Score - HEART Score Troponin: Troponin T 0.091 ng/mL (0.00-0.029) H 02/16/22 12:42
--- NOTE | 2022-02-18 14:26 | Cat Scan Report ---
CT CHEST WITHOUT CONTRAST INDICATION / CLINICAL INFORMATION: non resolving pneumonia. TECHNIQUE: Axial CT images were obtained through the chest without contrast. All CT scans at this [facility] ation are performed using CT dose reduction for ALARA by means of automated exposure control. COMPARISON: CTA chest dated 02/02/2022 FINDINGS: HEART: Mild cardiomegaly. Small pericardial effusion. CORONARY ARTERY CALCIFICATION: Moderate to severe THORACIC AORTA: Mild atherosclerotic calcification without acute abnormality. MEDIASTINUM / HANS: No significant abnormality. No pathologic adenopathy. PLEURA: There is a new trace left pleural effusion. No pneumothorax. LUNGS: Bilateral pulmonary venous congestion is present. There are subtle patchy groundglass peribron chial infiltrates in the left upper lobe and to a lesser extent the lower lobes. I suspect this repre sents pulmonary edema over infectious infiltrates. There is no evidence for consolidation or mass. ADDITIONAL FINDINGS: None. UPPER ABDOMEN: No significant abnormality. SKELETAL SYSTEM: No significant abnormality. IMPRESSION: Mild CHF. Patchy groundglass infiltration in the left upper lobe and bilateral lower lobes is more consistent w ith pulmonary edema than infectious infiltrates. Signer Name: Williams Mars Jr, MD Signed: 02/18/2022 2:21 PM Workstation Name: [id number]
[2022-02-18] MEDS: ALPRAZolam 0.25 MG TAB PO PRN (22:08)
[2022-02-19] MEDS: VANCOMYCIN 1,500 MG in SODIUM CHLORIDE 0.9% 500 ML 500 ML IV SCH (05:39)
--- NOTE | 2022-02-19 08:47 | Progress Note ---
Assessment and Plan Acute hypoxemic respiratory failure Bilateral pulmonary infiltrates (atypical pneumonia versus pulmonary edema) CHF (HFpEF) Streaky hemoptysis Tobacco use disorder Hypertension Chest pain PUI COVID-19 Anemia that is microcytic - Low clinical suspicion for pulmonary tuberculosis - suspect pulmonary edema is main pathology and will increase diuresis X 48-72 hours while monitoring electrolytes (still with positive fluid balance) - follow CT chest - continue airborne and contact isolation - follow AFB smears and cultures - ACS w/up per cardiology - continue care as below otherwise; - gentle diuresis while following electrolytes - complete empiric CAP AB's with Rocephin, Vancomycin and Zithromax - continue to wean supplemental oxygen to keep O2 sats > 90% - bronchodilators (MYRNA) with pulm hygiene per RT - avoid nephrotoxins, renally dose all medications - mobility protocols to prevent pressure ulcers - PT/OT as tolerated - prn analgesia per pain score - Wound care per RN/WCN - accuchecks with glycemic control per SSI for target blood glucose < 180 mg/dL - tobacco abstinence strongly counseled at the bedside - home oxygen evaluation at discharge - GI & VTE prophylaxis - Flu & pneumovax per protocol - Pulmonary out patient follow up for PFTs and optimization of respiratory status - continue other care per attending / other consultants ... re-evaluate in am & prn Subjective Date of service: 02/19/22 Principal diagnosis: AHRF; Pneumonia versus pulmonary edema; HFpEF; Hemoptysis; PUI COVID-19 Interval history: Patient is seen today for: Acute hypoxemic respiratory failure; Pneumonia versus pulmonary edema; HFpEF; Hemoptysis; PUI COVID-19 Seen and examined at bedside; 24hour events reviewed; nursing and respiratory care staff consulted; no adverse overnight events reported to me; resting peacefully in bed; remains on supplemental oxygen at 4L flow; CT chest reviewed and more compatible with pulmonary edema with an uincreased L. pleural effusion (still small though) since 02/02/22 CT chest Objective Vital Signs - 12hr 02/18/22 02/18/22 02/18/22 20:57 22:00 23:17 Temperature 97.9 F Pulse Rate 88 Pulse Rate [ 79 Throughout] Respiratory 20 18 Rate Respiratory 18 Rate [ Throughout] Blood Pressure 133/77 O2 Sat by Pulse 96 90 Oximetry 02/19/22 02/19/22 04:00 05:30 Temperature 97.4 F L Pulse Rate 88 76 Pulse Rate [ Throughout] Respiratory 18 Rate Respiratory Rate [ Throughout] Blood Pressure 134/75 O2 Sat by Pulse 96 Oximetry Constitutional: no acute distress, alert Eyes: non-icteric ENT: oropharynx moist Neck: supple, no lymphadenopathy, no JVD Effort: normal Ascultation: Bilateral: rales (bases R>L), rhonchi Percussion: Bilateral: not dull Cardiovascular: regular rate and rhythm Gastrointestinal: normoactive bowel sounds, soft, non-tender, non-distended Integumentary: normal Extremities: no cyanosis, no edema, pink and warm, pulses normal, no ischemia or petechiae Neurologic: normal mental status, non-focal exam, pupils equal and round, motor strength normal and Psychiatric: mood appropriate, affect normal CBC and BMP: 02/17/22 09:30 02/17/22 09:30 Abnormal lab findings: Abnormal Labs 02/15/22 02/15/22 02/15/22 00:03 00:03 23:46 RBC 3.19 L Hgb 7.2 L Hct 22.9 L MCV 72 L MCH 23 L MCHC 31 L RDW 19.3 H [place] % (Auto) 11.0 H [place] # (Auto) 1.1 H Seg Neutrophils % 72.9 H Seg Neuts % (Manual) Monocytes % (Manual) Lymphocytes # (Manual) Creatinine 0.7 L Glucose 128 H Total Creatine Kinase 171 H CK-MB (CK-2) 10.3 H CK-MB (CK-2) Rel Index 6.0 H Troponin T 0.063 H 0.073 H HDL Cholesterol 20 L 02/16/22 02/16/22 02/16/22 06:20 06:20 12:42 RBC Hgb 7.0 L Hct 22.3 L MCV MCH MCHC RDW [place] % (Auto) [place] # (Auto) Seg Neutrophils % Seg Neuts % (Manual) Monocytes % (Manual) Lymphocytes # (Manual) Creatinine 0.7 L Glucose 117 H Total Creatine Kinase CK-MB (CK-2) CK-MB (CK-2) Rel Index Troponin T 0.091 H HDL Cholesterol 02/17/22 02/17/22 09:30 09:30 RBC Hgb 8.0 L Hct 26.4 L MCV 72 L MCH 22 L MCHC 30 L RDW 19.3 H [place] % (Auto) [place] # (Auto) Seg Neutrophils % Seg Neuts % (Manual) 73.0 H Monocytes % (Manual) 9.0 H Lymphocytes # (Manual) 0.7 L Creatinine 0.7 L Glucose 105 H Total Creatine Kinase CK-MB (CK-2) CK-MB (CK-2) Rel Index Troponin T HDL Cholesterol Allied health notes reviewed: nursing
[2022-02-19] MEDS: ENOXAPARIN 40 MG/0.4 ML INJ SUB-Q SCH (09:38)
[2022-02-19] MEDS: FUROSEMIDE 40 MG/4 ML INJ IV SCH ×2 (09:38→21:13)
[2022-02-19] MEDS: FAMOTIDINE 20 MG TAB PO SCH ×2 (09:38→21:13)
[2022-02-19] MEDS: carvediloL 3.125 MG TAB PO SCH ×2 (09:38→21:13)
[2022-02-19] MEDS: amLODIPine 10 MG TAB PO SCH (09:38)
[2022-02-19] MEDS: AZITHROMYCIN/NS 500 MG/250 ML 500 MG/250 ML BAG IV SCH (10:20)
[2022-02-19] MEDS: cefTRIAXone/NS 2 GM/100 ML 2 GM/100 ML BAG IV SCH (10:20)
[2022-02-19 10:38] LABS: Blood Urea Nitrogen 16 mg/dL (9-20); Calcium 8.6 mg/dL (8.4-10.2); Hemolysis Index 62
[2022-02-19 10:59] LABS: BUN/Creatinine Ratio 23
[2022-02-19] MEDS: ALPRAZolam 0.25 MG TAB PO PRN ×2 (13:26→22:47)
--- NOTE | 2022-02-19 15:12 | Progress Note ---
Assessment and Plan Cultures: 02/16/2022 COVID-19 PCR: Negative 02/16/2022 HIV fourth-generation test: Nonreactive 02/17/2022 sputum culture: Oropharyngeal contamination. A/P: 41-year-old male with hypertension, CHF, polysubstance abuse was admitted with cough, shortness of breath and hemoptysis going on for about 2 months now. He thinks he is getting worse. Noted to be hypoxic in the ER, chest x-ray showed right-sided pneumonia. Patient had recently come to the emergency room on 02/02/2022, showed bilateral groundglass opacities representing pulmonary edema or atypical infection was admitted but left AMA: #Bilateral pneumonia: ?atypical. CT chest suggestive of possible pulmonary edema. CRP 0.5. Follow-up procalcitonin. #Hemoptysis #Homelessness #?polysubstance abuse: Patient denied it to me. Urinary tox screen negative. Recs: Completed antibiotics course. CT chest more suggestive of pulmonary edema. CRP 0.5. Follow-up procalcitonin. No concern for TB, isolation not needed Amber Rahman MD, FACP, [facility] ([facility] O: [phone] F: [phone] C: [phone] Subjective Date of service: 02/19/22 Principal diagnosis: AHRF; Pneumonia versus pulmonary edema; HFpEF; Hemoptysis; PUI COVID-19 Interval history: No fever. CRP 0.5. Objective - Exam Narrative Exam: Physical Exam: Constitutional: Alert, cooperative. No acute distress Head, Ears, Nose: Normocephalic, atraumatic. External ears, nose normal Eyes: Conjunctivae/corneas clear. No icterus. No ptosis. Neck: Supple, no meningeal signs Cardiovascular: S1, S2 + Respiratory: few b/l crackles GI: Soft, non-tender; bowel sounds normal. No peritoneal signs Musculoskeletal: No pedal edema, no cyanosis. Skin: No rash or abscess Hem/Lymphatic: No palpable cervical or supraclavicular nodes. No lymphangitis Psych: Mood ok. Affect normal Neurological: Awake, alert, oriented. No gross abnormality - Constitutional Vitals: Vital Signs Temp Pulse Resp BP Pulse Ox 98.3 F 89 20 110/71 94 02/19/22 11:44 02/19/22 11:44 02/19/22 11:44 02/19/22 11:44 02/19/22 12:25 Temperature -Last 24 Hours Temperature 98.3 F Temperature 97.4 F Temperature 97.9 F Temperature 98.8 F - Labs CBC & Chem 7: 02/17/22 09:30 02/19/22 07:46 Labs: Abnormal lab results 02/19/22 Range/Units 07:46 Sodium 136 L (137-145) mmol/L Creatinine 0.7 L (0.8-1.3) mg/dL Glucose 120 H (75-100) mg/dL
--- NOTE | 2022-02-19 15:16 | Progress Note ---
Assessment and Plan -- COVID-19 PUI Morales PCR test is negative --Right-sided pneumonia; Possibly community-acquired pneumonia Repeat CT chest suggestive for pulmonary edema Pulmonary ID following, completed antibiotics Low suspicion for TB and no isolation needed --Acute respiratory failure with hypoxia Current Visit: Yes Status: Acute Oxygen by nasal cannula Titrate O2 sats to more than 90% Multifactorial, underlying right-sided pneumonia Acute exacerbation of chronic diastolic congestive heart failure Wean oxygen as tolerated Home O2 evaluation at discharge -- Acute exacerbation of chronic diastolic CHF (congestive heart failure) Current Visit: Yes Status: Acute Diuretics, input output monitoring, low-sodium diet, fluid restriction LVEF 50 to 55% last month, cardiology evaluated in the past We will closely monitor and adjust management as needed --Anemia; Hb 7.2; Probably secondary to acute blood loss Closely monitor H&H, transfuse 1 unit of PRBC if needed --Non-ST elevation CT; Nonspecific elevation of troponin, patient had work-up during his last admission Medical management, stress test pending --Hypertension Current Visit: Yes Status: Acute Resume home medications --Polysubstance abuse. Tobacco, alcohol, recreational drugs Strongly advised to quit alcohol and recreational drugs Smoking cessation counseling done Follow urine toxicology --Full CODE STATUS; --DVT prophylaxis Current Visit: No Status: Acute SCDs, no pharmacologic anticoagulation in view of hemoptysis and anemia --Completed antibiotics course. CT chest more suggestive of pulmonary edema. CRP 0.5. Follow-up procalcitonin. No concern for TB, isolation not needed. Cardiology plan for stress test tomorrow, will continue to follow Subjective Date of service: 02/19/22 Principal diagnosis: AHRF; Pneumonia versus pulmonary edema; HFpEF; Hemoptysis; PUI COVID-19 Interval history: Patient's chart and medications reviewed Patient seen and examined Patient feels slightly better Still has intermittent chest pain no Hemoptysis since admission Vital signs noted Objective - Exam Narrative Exam: General appearance: Present: no acute distress, well-nourished, other - EENT Eyes: Present: PERRL, EOM intact - Neck Neck: Present: supple, normal ROM - Respiratory Respiratory effort: normal Respiratory: bilateral: diminished, rhonchi, negative: rales, wheezing - Cardiovascular Rhythm: regular Heart Sounds: Present: S1 & S2 - Extremities Extremities: no ischemia, No edema - Abdominal General gastrointestinal: soft, non-tender, non-distended, normal bowel sounds - Integumentary Integumentary: Present: clear, warm - Psychiatric Psychiatric: appropriate mood/affect, cooperative - Neurologic Neurologic: CNII-XII intact, moves all extremities - Constitutional Vitals: Vital Signs - 12hr 02/19/22 02/19/22 02/19/22 04:00 05:30 09:36 Temperature 97.4 F L Pulse Rate 88 76 83 Respiratory 18 20 Rate Blood Pressure 134/75 122/69 Blood Pressure [Left] O2 Sat by Pulse 96 95 Oximetry 02/19/22 02/19/22 02/19/22 09:38 10:00 11:44 Temperature 98.3 F Pulse Rate 89 Respiratory 20 Rate Blood Pressure 122/68 Blood Pressure 110/71 [Left] O2 Sat by Pulse 98 90 Oximetry 02/19/22 12:25 Temperature Pulse Rate Respiratory Rate Blood Pressure Blood Pressure [Left] O2 Sat by Pulse 94 Oximetry - Labs CBC & Chem 7: 02/17/22 09:30 02/19/22 07:46 Labs: Abnormal lab results 02/19/22 Range/Units 07:46 Sodium 136 L (137-145) mmol/L Creatinine 0.7 L (0.8-1.3) mg/dL Glucose 120 H (75-100) mg/dL HEART Score - HEART Score Troponin: Troponin T 0.091 ng/mL (0.00-0.029) H 02/16/22 12:42
[2022-02-20] MEDS ORDERED: ZOLPIDEM 5 MG TAB PO PRN (00:34)
[2022-02-20 07:29] LABS: Hematocrit 27.2 % (35.5-45.6); Hemoglobin 8.3 gm/dl (11.8-15.2); Mean Corpuscular HGB Conc 31 % (32-34); Mean Corpuscular Volume 70 fl (84-94); Platelet Count 415 K/mm3 (140-440); Red Blood Count 3.87 M/mm3 (3.65-5.03); Red Cell Distribution Width 19.2 % (13.2-15.2)
[2022-02-20] MEDS ORDERED: REGADENOSON 0.4 MG/5 ML INJ IV ONE (08:12)
--- NOTE | 2022-02-20 09:01 | Progress Note ---
Assessment and Plan The patient is a 41-year-old male present with a chief complaint of shortness of breath and cough as well as hemoptysis the patient was admitted to this hospital 02/02/2022 for the same but left AMA 02/04/2022. Patient complains of substernal chest pain , shortness of breath with hemoptysis. Patient denies history of fever. In ER patient was found to be hypoxic ,O2 saturation 77% on room air in the ED. Patient was placed on supplemental O2 Patient denies nausea vomiting or abdominal pain Denies headache dizziness weakness or numbness Patient is homeless was living in custodial and in tents Initial work-up consistent with chest x-ray findings of right-sided pneumonia /infiltrate mild elevation of troponins And hypoxia. Patients has history of hypertension and Heart failure. Patient has history of smoking 2 cigaretts a day x 25 years. Denies alcohol or drug abuse. Not . Has no children. 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 No known drug allergies. atient went for cardiac procedure. O2 saturation recorded 95%. According to nursing staff no acute respiratory distress. Patient afebrile. No Leukocytosis. Blood pressure 118/74, pulse 88, respirations 14 Chest xray done 02/14/22 reported Findings suggesting pulmonary edema. There is also increased opacification within the right lung which appears similar to chest radiograph dated 02/02/2022, at which time the CT indicated possible atypical infectious process. CT of chest 02/18/22 reported Patchy groundglass infiltration in the left upper lobe and bilateral lower lobes is more consistent with pulmonary edema than infectious infiltrates. Patient is on S/C Lovenox, Famotidine. Albuterol inhaler and Robitussin. - Patient Problems (1) Acute respiratory failure with hypoxia Status: Acute Plan to address problem: O2 saturation improved. Patient presently on room air, O2 saturation 95%. Recommend O2 2 litres via nasal canula. Albuterol inhaler 2 puffs po q 6 hours prn for shortness of breath. Continue S/C Lovenox Continue Famotidine. (2) Acute exacerbation of CHF (congestive heart failure) Status: Acute Plan to address problem: Patient is on Coreg and Lasix. Management as per cardiology. (3) Anemia Status: Acute Plan to address problem: Patients recent HGB 8.3. Management as per primary care. (4) Hypertension Status: Acute Plan to address problem: Management as per primary care. Subjective Date of service: 02/20/22 Principal diagnosis: AHRF; Pneumonia versus pulmonary edema; HFpEF; Hemoptysis; PUI COVID-19 Interval history: The patient is a 41-year-old male present with a chief complaint of shortness of breath and cough as well as hemoptysis the patient was admitted to this hospital 02/02/2022 for the same but left AMA 02/04/2022. Patient complains of substernal chest pain , shortness of breath with hemoptysis. Patient denies history of fever. In ER patient was found to be hypoxic ,O2 saturation 77% on room air in the ED. Patient was placed on s upplemental O2 Patient denies nausea vomiting or abdominal pain Denies headache dizziness weakness or numbness Patient is homeless was living in custodial and in tents Initial work-up consistent with chest x-ray findings of right-sided pneumonia /infiltrate mild elevation of troponins And hypoxia. Patients has history of hypertension and Heart failure. Patient has history of smoking 2 cigaretts a day x 25 years. Denies alcohol or drug abuse. Not . Has no children. 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 No known drug allergies. Patient went for cardiac procedure. O2 saturation recorded 95%. According to nursing staff no acute respiratory distress. Patient afebrile. No Leukocytosis. Blood pressure 118/74, pulse 88, respirations 14 Chest xray done 02/14/22 reported Findings suggesting pulmonary edema. There is also increased opacification within the right lung which appears similar to c hest radiograph dated 02/02/2022, at which time the CT indicated possible atypical infectious process. CT of chest 02/18/22 reported Patchy groundglass infiltration in the left upper lobe and bilateral lower lobes is more consistent with pulmonary edema than infectious infiltrates. Patient is on S/C Lovenox, Famotidine. Albuterol inhaler and Robitussin. Objective Vital Signs - 12hr 02/19/22 02/19/22 02/19/22 21:01 21:13 22:00 Temperature 97.9 F Pulse Rate 80 80 Respiratory 15 20 Rate Blood Pressure 139/84 139/84 O2 Sat by Pulse 95 96 Oximetry 02/20/22 02/20/22 04:00 04:24 Temperature 98.0 F Pulse Rate 80 88 Respiratory 16 Rate Blood Pressure 104/54 O2 Sat by Pulse 89 Oximetry Constitutional: no acute distress, alert Eyes: non-icteric ENT: oropharynx moist Neck: supple, no lymphadenopathy, no JVD Effort: normal Ascultation: Bilateral: rales (bases R>L), rhonchi Percussion: Bilateral: not dull Cardiovascular: regular rate and rhythm Gastrointestinal: normoactive bowel sounds, soft, non-tender, non-distended Integumentary: normal Extremities: no cyanosis, no edema, pink and warm, pulses normal, no ischemia or petechiae Neurologic: normal mental status, non-focal exam, pupils equal and round, motor strength normal and Psychiatric: mood appropriate, affect normal CBC and BMP: 02/20/22 06:59 02/19/22 07:46 Abnormal lab findings: Abnormal Labs 02/15/22 02/15/22 02/15/22 00:03 00:03 23:46 RBC 3.19 L Hgb 7.2 L Hct 22.9 L MCV 72 L MCH 23 L MCHC 31 L RDW 19.3 H Pickett % (Auto) 11.0 H Pickett # (Auto) 1.1 H Seg Neutrophils % 72.9 H Seg Neuts % (Manual) Monocytes % (Manual) Lymphocytes # (Manual) Sodium Creatinine 0.7 L Glucose 128 H Total Creatine Kinase 171 H CK-MB (CK-2) 10.3 H CK-MB (CK-2) Rel Index 6.0 H Troponin T 0.063 H 0.073 H HDL Cholesterol 20 L 02/16/22 02/16/22 02/16/22 06:20 06:20 12:42 RBC Hgb 7.0 L Hct 22.3 L MCV MCH MCHC RDW Pickett % (Auto) Pickett # (Auto) Seg Neutrophils % Seg Neuts % (Manual) Monocytes % (Manual) Lymphocytes # (Manual) Sodium Creatinine 0.7 L Glucose 117 H Total Creatine Kinase CK-MB (CK-2) CK-MB (CK-2) Rel Index Troponin T 0.091 H HDL Cholesterol 02/17/22 02/17/22 02/19/22 09:30 09:30 07:46 RBC Hgb 8.0 L Hct 26.4 L MCV 72 L MCH 22 L MCHC 30 L RDW 19.3 H Pickett % (Auto) Pickett # (Auto) Seg Neutrophils % Seg Neuts % (Manual) 73.0 H Monocytes % (Manual) 9.0 H Lymphocytes # (Manual) 0.7 L Sodium 136 L Creatinine 0.7 L 0.7 L Glucose 105 H 120 H Total Creatine Kinase CK-MB (CK-2) CK-MB (CK-2) Rel Index Troponin T HDL Cholesterol 02/20/22 06:59 RBC Hgb 8.3 L Hct 27.2 L MCV 70 L MCH 22 L MCHC 31 L RDW 19.2 H Pickett % (Auto) Pickett # (Auto) Seg Neutrophils % Seg Neuts % (Manual) Monocytes % (Manual) Lymphocytes # (Manual) Sodium Creatinine Glucose Total Creatine Kinase CK-MB (CK-2) CK-MB (CK-2) Rel Index Troponin T HDL Cholesterol CT scan - chest: report reviewed, image reviewed Additional Studies: CT CHEST WITHOUT CONTRAST 02/18/22 INDICATION / CLINICAL INFORMATION: non resolving pneumonia. TECHNIQUE: Axial CT images were obtained through the chest without contrast. All CT scans at this location are performed using CT dose reduction for ALARA by means of automated exposure control. COMPARISON: CTA chest dated 02/02/2022 FINDINGS: HEART: Mild cardiomegaly. Small pericardial effusion. CORONARY ARTERY CALCIFICATION: Moderate to severe THORACIC AORTA: Mild atherosclerotic calcification without acute abnormality. MEDIASTINUM / HANS: No significant abnormality. No pathologic adenopathy. PLEURA: There is a new trace left pleural effusion. No pneumothorax. LUNGS: Bilateral pulmonary venous congestion is present. There are subtle patchy groundglass peribronchial infiltrates in the left upper lobe and to a lesser extent the lower lobes. I suspect this represents pulmonary edema over infectious infiltrates. There is no evidence for consolidation or mass. ADDITIONAL FINDINGS: None. UPPER ABDOMEN: No significant abnormality. SKELETAL SYSTEM: No significant abnormality. IMPRESSION: Mild CHF. Patchy groundglass infiltration in the left upper lobe and bilateral lower lobes is more consistent with pulmonary edema than infectious infiltrates. Allied health notes reviewed: nursing
--- NOTE | 2022-02-20 10:21 | Nuclear Medicine Report ---
APPROVED REPORT Exam: Nuclear Stress Test Indication: Chest pain Patient Location: [address] [place] [address] Room #: 361 Ht: 5 ft 10 in Wt: 184 lbs BSA: 2.02 m2 HR: 78 bpmBP: 118/74 mmHgBMI: 26.39 Rhythm: SINUS RHYTHM LEFT ANTERIOR FASICULAR BLOCK, ANTERSEPTAL INFARCT, AGE UNDETERMINED Stress Test Details Stress Test: Pharmacologic stress testing performed using 0.4 mg of regadenoson per 5 mL given IV over 10 seconds. Reason for pharmacologic stress test: physical limitation. HR Resting HR: 78 bpm Max HR Achieved: 94 bpm Max Heart Rate (APMHR): 178.082877 bpm Target HR (85% APMHR): 151.081232 bpm % of APMHR: 52.81 Recovery HR: 93 bpm BP Resting BP: 116/74 mmHg Max BP: 122/75 mmHg Recovery BP: 112/75 mmHg ECG Resting ECG: Sinus Rhythm Stress ECG: Sinus Rhythm Clinical Reason for Termination: Completed protocol Stress Symptoms: None NM EXAM: Myocardial Perfusion REST/STRESS Imaging Protocol: Rest Tc-99m/Stress Tc-99m 1 day Resting Data Rest SPECT myocardial perfusion imaging was performed in supine position 45 minutes following the intravenous injection of 10 mCi of Tc-99m Myoview. Time of rest injection: 0740 Date: 02/20/2022 Pharmacologic Stress Pharmacologic stress test was performed by injecting Regadenoson 0.4 mg IV push followed by the intravenous injection of 28 mCi of Tc-99m Myoview. Time of stress injection: 09:51:24 Date: 02/20/2022 Gated Stress SPECT was performed 30 minutes after stress injection. The images were gated to evaluate regional wall motion and calculate left ventricular ejection fraction. Study Data TID = 1.00. Perfusion Nuclear Conclusion ECG Findings: negative for ischemia Clinical Findings: negative for ischemia Nuclear Findings: negative for ischemia Exercise Capacity: not assessed Left Ventricular Function: normal Normal study. No scintigraphic evidence for myocardial ischemia or scar. Normal left ventricular size and function with no regional wall motion abnormalities.
[2022-02-20 10:23] LABS: Band Neutrophils # (Manual) 0.2 K/mm3; Basophils % (Manual) 0 % (0.0-1.8); Total Cells Counted 100
--- NOTE | 2022-02-20 10:24 | Progress Note ---
Assessment and Plan Patient is a 41-year-old male with a past medical history of hypertension, Raynaud's syndrome, and tobacco abuse who presented to the ED with a complaint of coughing up blood which has been interim for about 2-month and was previously here on 02/02/2022 for similar complaints Acute respiratory failure-pulmonology following NSTEMI suspect type 2 Atypical pneumonia? Anemia Hemoptysis Hypertension History of tobacco abuse Echo 02/02/2022-EF 50 to 55% moderate concentric LVH. Mild diastolic dysfunction is present. Impaired relaxation pattern. Right ventricle systolic function is normal stress test ; normal myocardial perfusion no signficant ishcemia noted rec: treat for underlying illness, non cardiac pulmonary edema Subjective Date of service: 02/20/22 Principal diagnosis: AHRF; Pneumonia versus pulmonary edema; HFpEF; Hemoptysis; PUI COVID-19 Interval history: no more blood in sputum, cough present Objective Vital Signs Temp Pulse Resp BP BP Pulse Ox 02/20/22 09:15 14 95 02/20/22 04:24 98.0 F 88 16 104/54 89 02/20/22 04:00 80 02/19/22 22:00 20 96 02/19/22 21:13 80 139/84 02/19/22 21:01 97.9 F 80 15 139/84 95 02/19/22 20:30 97 02/19/22 20:00 84 02/19/22 16:53 98.8 F 84 18 133/74 94 02/19/22 12:25 94 02/19/22 11:44 98.3 F 89 20 110/71 90 - Physical Examination General: No Apparent Distress HEENT: Positive: Normocephaly Neck: Positive: trachea midline Cardiac: Positive: Reg Rate and Rhythm Lungs: Positive: Decreased Breath Sounds Neuro: Positive: Grossly Intact Abdomen: Positive: Soft Skin: Negative: Rash, Suspicious Lesions, Ulceration Extremities: Present: upper extr. pulses - Labs and Meds CBC 02/20/22 Range/Units 06:59 WBC 7.3 (4.5-11.0) K/mm3 RBC 3.87 (3.65-5.03) M/mm3 Hgb 8.3 L (11.8-15.2) gm/dl Hct 27.2 L (35.5-45.6) % Plt Count 415 (140-440) K/mm3 Comprehensive Metabolic Panel 05/12/22 Range/Units 07:46 Sodium 136 L (137-145) mmol/L Potassium 4.4 (3.6-5.0) mmol/L Chloride 101.0 (98-107) mmol/L Carbon Dioxide 24 (22-30) mmol/L BUN 16 (9-20) mg/dL Creatinine 0.7 L (0.8-1.3) mg/dL Glucose 120 H (75-100) mg/dL Calcium 8.6 (8.4-10.2) mg/dL - Imaging and Cardiology Pharmacologic stress test: report reviewed (normal myocardial perfusion) Echo: report reviewed - Telemetry EKG Rhythm: Sinus Rhythm - EKG Sinus rhythms and dysrhythmias: sinus tachycardia Chamber hypertrophy or enlargement: left ventricular hypertro Repolarization changes or abnormalities: nonspecific abnormality, ST segment, and/or T wave Myocardial infarction: septal NV (old age or ind - Allied health notes Allied health notes reviewed: nursing
--- NOTE | 2022-02-20 10:27 | Progress Note ---
Assessment and Plan Cultures: 02/16/2022 COVID-19 PCR: Negative 02/16/2022 HIV fourth-generation test: Nonreactive 02/17/2022 sputum culture: Oropharyngeal contamination. A/P: 41-year-old male with hypertension, CHF, polysubstance abuse was admitted with cough, shortness of breath and hemoptysis going on for about 2 months now. He thinks he is getting worse. Noted to be hypoxic in the ER, chest x-ray showed right-sided pneumonia. Patient had recently come to the emergency room on 02/02/2022, showed bilateral groundglass opacities representing pulmonary edema or atypical infection was admitted but left AMA: #Bilateral pneumonia: ?atypical. CT chest suggestive of possible pulmonary edema. CRP 0.5. Follow-up procalcitonin. No fever, no weight loss, no concerning lesion on CT chest to suggest TB. #Hemoptysis #Homelessness #?Polysubstance abuse: Patient denied it to me. Urinary tox screen negative. Recs: Completed antibiotics course. CT chest more suggestive of pulmonary edema. CRP 0.5. No concern for TB, isolation not needed Amber Rahman MD, FACP, [facility] O: [phone] F: [phone] C: [phone] Subjective Date of service: 02/20/22 Principal diagnosis: AHRF; Pneumonia versus pulmonary edema; HFpEF; Hemoptysis; PUI COVID-19 Interval history: Denies any complaints, cough +, no sputum or hemoptysis. Wants to go home. Objective - Exam Narrative Exam: Physical Exam: Constitutional: Alert, cooperative. No acute distress Head, Ears, Nose: Normocephalic, atraumatic. External ears, nose normal Eyes: Conjunctivae/corneas clear. No icterus. No ptosis. Neck: Supple, no meningeal signs Cardiovascular: S1, S2 + Respiratory: few occasional b/l crackles GI: Soft, non-tender; bowel sounds normal. No peritoneal signs Musculoskeletal: No pedal edema, no cyanosis. Skin: No rash or abscess Hem/Lymphatic: No palpable cervical or supraclavicular nodes. No lymphangitis Psych: Mood ok. Affect normal Neurological: Awake, alert, oriented. No gross abnormality - Constitutional Vitals: Vital Signs Temp Pulse Resp BP Pulse Ox 98.0 F 88 14 104/54 95 02/20/22 04:24 02/20/22 04:24 02/20/22 09:15 02/20/22 04:24 02/20/22 09:15 Temperature -Last 24 Hours Temperature 98.0 F Temperature 97.9 F Temperature 98.8 F Temperature 98.3 F - Labs CBC & Chem 7: 02/20/22 06:59 02/19/22 07:46 Labs: Abnormal lab results 02/19/22 02/20/22 Range/Units 07:46 06:59 Hgb 8.3 L (11.8-15.2) gm/dl Hct 27.2 L (35.5-45.6) % MCV 70 L (84-94) fl MCH 22 L (28-32) pg MCHC 31 L (32-34) % RDW 19.2 H (13.2-15.2) % Sodium 136 L (137-145) mmol/L Creatinine 0.7 L (0.8-1.3) mg/dL Glucose 120 H (75-100) mg/dL
[2022-02-20 10:28] LABS: Anisocytosis 1+; Hypochromasia 2+; Poikilocytosis 1+
[2022-02-20 10:29] LABS: Large Platelets Rare; Ovalocytes Rare; Platelet Estimate Consistent w Auto; Stomatocytes Rare; Tear Drop Cells Rare
[2022-02-20 10:44] VITALS: BP 116/78
[2022-02-20] MEDS: carvediloL 3.125 MG TAB PO SCH (12:06)
[2022-02-20] MEDS: amLODIPine 10 MG TAB PO SCH (12:06)
--- NOTE | 2022-02-20 12:06 | Discharge Summary ---
Providers - Providers Date of Admission: 02/15/22 08:35 Date of discharge: 02/20/22 Attending physician: UCHE ROSENTHAL 02/15/22 12:25 Consult to Physician [CONS] Routine Comment: I called and d/w Consulting Provider: GULSHAN POOLE Physician Instructions: Reason For Exam: Cough/hemoptysis/right infiltrate on x-ray 02/15/22 19:38 Consult to Physician [CONS] Routine Comment: Consulting Provider: GERADR APPIAH Physician Instructions: Reason For Exam: Diast CHF/SOB/nonspecific ST-T changes, trop 0.06 02/16/22 11:42 Consult to Physician [CONS] Routine Comment: Consulting Provider: DEMETRICE PICKENS Physician Instructions: Reason For Exam: TERESA pneumonia/hemoptysis/evaluate for TB Primary care physician: PRIMITIVO MORALES Hospitalization Condition: Fair Hospital course: The patient is a 41-year-old male present with a chief complaint of shortness of breath and cough as well as hemoptysis the patient was admitted to this hospital 02/02/2022 for the same but left AMA 02/04/2022. Patient complains of substernal chest pain which started yesterday, shortness of breath with hemoptysis. Patient denies history of fever. In ER patient was found to be proximal hypoxic to 77% on room air here in the ED. Patient was placed on supplemental O2 Patient denies nausea vomiting or abdominal pain Patient is homeless was living in group home and in tents Initial work-up consistent with chest x-ray findings of right-sided pneumonia /infiltrate mild elevation of troponins And hypoxia. Patient was placed on empiric antibiotics, ID and material yard clerk were consulted. Due to his complaint of hemoptysis there was initial concern for TB. Patient was ordered for AFB smear and culture but there was not enough sputum patient could produce to do the test. TB quant) test was sent out but that was pending. ID then ordered repeat CT chest which showed findings more consistent with pulmonary edema rather than infiltrates. There was no cavitary lesion identified on CT chest, pulmonary and ID then clarified that patient is very low suspicion for TB. Due to his elevated troponin patient went through a stress test which was unremarkable. Patient's hemoptysis completely resolved and no documented bloodstained sputum was noted. Patient will completed antibiotic therapy for community-acquired pneumonia. He was then discharged home in stable condition with outpatient follow-up and with home O2. Assessment and plan: Hemoptysis, resolved. Patient complained of hemoptysis on admission Suspected TB at the beginning of admission. But patient was unable to produce sputum for AFB test. QuantiFERON assay is pending. Discussed with ID and pulmonary, since patient asymptomatic and based on repeat CT chest findings very low suspicion for TB. Per ID no isolation required. Hemoptysis might be due to pulmonary edema and right lower lobe pneumonia. Continue to follow clinically. H&H stable -- COVID-19 PUI Morales PCR test is negative --Right-sided pneumonia; Possibly community-acquired pneumonia Repeat CT chest suggestive for pulmonary edema Pulmonary ID following, completed antibiotics Low suspicion for TB and no isolation needed --Acute respiratory failure with hypoxia Current Visit: Yes Status: Acute Oxygen by nasal cannula Titrate O2 sats to more than 90% Multifactorial, underlying right-sided pneumonia Acute exacerbation of chronic diastolic congestive heart failure Wean oxygen as tolerated Home O2 evaluation at discharge -- Acute exacerbation of chronic diastolic CHF (congestive heart failure) Current Visit: Yes Status: Acute Diuretics, input output monitoring, low-sodium diet, fluid restriction LVEF 50 to 55% last month, cardiology evaluated in the past Stress test unremarkable --Anemia; Hb 7.2; Probably secondary to acute blood loss Closely monitor H&H, transfuse 1 unit of PRBC if needed --Non-ST elevation NJ; Nonspecific elevation of troponin, patient had work-up during his last admission Medical management, stress test unremarkable --Hypertension Current Visit: Yes Status: Acute Resumed home medications --Polysubstance abuse. Tobacco, alcohol, recreational drugs Strongly advised to quit alcohol and recreational drugs Smoking cessation counseling done Follow urine toxicology --Full CODE STATUS; --DVT prophylaxis Current Visit: No Status: Acute SCDs, no pharmacologic anticoagulation in view of complaint of hemoptysis and anemia --Completed antibiotics course. CT chest more suggestive of pulmonary edema. CRP 0.5. No concern for TB, isolation not needed. Stress test unremarkable, DC home in stable condition. Patient to follow-up as quantified At ID clinic, patient was given number to set up in the appointment Discharge plan and management was thoroughly discussed with the patient and he verbalized understanding Disposition: 01 HOME / SELF CARE / HOMELESS Final Discharge Diagnosis (Prints w/discharge instructions): --Hemoptysis, resolved. -- COVID-19 PUI, ruled out. --Acute respiratory failure with hypoxia. -- Acute exacerbation of chronic diastolic CHF (congestive heart failure). --Anemia; Hb 7.2;. --Non-ST elevation NJ; type 2. --Hypertension. --Polysubstance abuse. Time spent for discharge: 34 minutes Core Measure Documentation - Palliative Care Palliative Care/ Comfort Measures: Not Applicable - Core Measures Any of the following diagnoses?: none Exam - Physical Exam Narrative exam: General appearance: Present: no acute distress, well-nourished, other - EENT Eyes: Present: PERRL, EOM intact - Neck Neck: Present: supple, normal ROM - Respiratory Respiratory effort: normal Respiratory: bilateral: diminished, rhonchi, negative: rales, wheezing - Cardiovascular Rhythm: regular Heart Sounds: Present: S1 & S2 - Extremities Extremities: no ischemia, No edema - Abdominal General gastrointestinal: soft, non-tender, non-distended, normal bowel sounds - Integumentary Integumentary: Present: clear, warm - Psychiatric Psychiatric: appropriate mood/affect, cooperative - Neurologic Neurologic: CNII-XII intact, moves all extremities - Constitutional Vitals: Temp Pulse Resp BP Pulse Ox 98.3 F 81 18 116/78 85 02/20/22 10:37 02/20/22 10:37 02/20/22 10:37 02/20/22 10:37 02/20/22 10:37 Plan Activity: advance as tolerated Weight Bearing Status: Weight Bear as Tolerated Diet: low fat, low salt Special Instructions: record daily BP diary, home oxygen via (3L O2) Follow up with: PRIMITIVO MORALES MD [Primary Care Provider] - 7 Days DEMETRICE PICKENS MD [Staff Physician] - 7 Days Prescriptions: amLODIPine 10 mg PO DAILY #30 tab carvediloL [Coreg] 3.125 mg PO BID #60 tablet Albuterol Mdi (or & Nicu Only) [ProAir HFA Inhaler] 2 puff IH QID PRN #8.5 gram PRN Reason: Shortness Of Breath
[2022-02-20] MEDS: ENOXAPARIN 40 MG/0.4 ML INJ SUB-Q SCH (12:07)
[2022-02-20] MEDS: FUROSEMIDE 40 MG/4 ML INJ IV SCH (12:07)
[2022-02-20] MEDS: FAMOTIDINE 20 MG TAB PO SCH (12:08)
--- NOTE | 2022-02-24 17:36 | Electrocardiograph Report ---
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
== END 2022-02-20 13:42 | disposition home or self-care (01) | DRG 280 ==
LOC: ED 22:15 → 4A 02-15 08:35 → 3A 02-15 10:17
PROVIDERS: ADMIT Internal Medicine; ATTEND Internal Medicine
DX: I11.0 Hypertensive heart disease with heart failure (principal); I50.33 Acute on chronic diastolic (congestive) heart failure; I21.A1 Myocardial infarction type 2; J96.01 Acute respiratory failure with hypoxia; J16.8 Pneumonia due to other specified infectious organisms; I50.9 Heart failure, unspecified; F17.210 Nicotine dependence, cigarettes, uncomplicated; D64.9 Anemia, unspecified; Z20.822 Contact with and (suspected) exposure to COVID-19
CPT/HCPCS: 36415; 71046; 71250; 78452; 80048; 80053; 80061; 80307; 82164; 82550; 82553; 83735; 84145; 84484; 85007; 85014; 85018; 85025; 86140; 87205; 87449; 87641; 87806; 93005; 93017; 94640; 94760; 96374; 96375; 99285; 99406; G0378; A9502; J0456; J0696; J1650; J1940; J2060; J2405; J2785; J3010; J3370; J7040; U0003

== ENCOUNTER 2022-06-10 10:21 | Emergency (ER) | payer SELFPAY ==
[2022-06-10 10:30] VITALS: BP 173/82
--- NOTE | 2022-06-10 16:41 | XRay Report ---
XR chest routine 2V INDICATION / CLINICAL INFORMATION: Chest Pain. COMPARISON: CT from 02/18/2022 FINDINGS: SUPPORT DEVICES: None. HEART /PULMONARY VASCULATURE: Heart remains enlarged. Pulmonary vasculature is mildly prominent. LUNGS / PLEURA: Mild hazy opacity in the right lung base. No pneumothorax. ADDITIONAL FINDINGS: No significant additional findings. IMPRESSION: Findings suggestive of mild pulmonary edema. Hazy opacity in the right lung base may reflect asymmetr ic edema or atypical infection. Signer Name: Van Strange MD Signed: 06/10/2022 4:36 PM Workstation Name: [employer]
[2022-06-10 17:24] LABS: Basophils % (Auto) 0.4 % (0.0-1.8); Eosinophils # (Auto) 0.1 K/mm3 (0.0-0.4); Eosinophils % (Auto) 1.5 % (0.0-4.3); Hematocrit 26.9 % (35.5-45.6); Hemoglobin 8.4 gm/dl (11.8-15.2); Lymphocytes # (Auto) 1.4 K/mm3 (1.2-5.4); Lymphocytes % (Auto) 17.3 % (13.4-35.0); Mean Corpuscular HGB Conc 31 % (32-34); Mean Corpuscular Volume 69 fl (84-94); Monocytes # (Auto) 1.2 K/mm3 (0.0-0.8); Monocytes % (Auto) 15.2 % (0.0-7.3); Platelet Count 386 K/mm3 (140-440); Red Blood Count 3.92 M/mm3 (3.65-5.03); Red Cell Distribution Width 23.6 % (13.2-15.2)
[2022-06-10 17:40] LABS: INR 1.04 (0.87-1.13)
[2022-06-10 17:41] LABS: Partial Thromboplastin Time 33.3 Sec. (24.2-36.6)
[2022-06-10 17:53] LABS: Alanine Aminotransferase 25 units/L (7-56); Albumin 3.7 g/dL (3.9-5); Blood Urea Nitrogen 8 mg/dL (9-20); Calcium 8.5 mg/dL (8.4-10.2); Hemolysis Index 3
[2022-06-10 17:55] LABS: BUN/Creatinine Ratio 13
[2022-06-10 18:18] LABS: Chol/HDL Ratio 5.38 %; HDL Cholesterol 21 mg/dL (40-59); LDL Cholesterol,Direct 68 mg/dL (50-130)
--- NOTE | 2022-06-12 13:24 | Electrocardiograph Report ---
[facility] Test Date: 2022-06-10 Test Time: 11:25:50 Pat Name: BOUBACAR APARICIO Department: Room: Gender: M Veneer Matcher: AF : 1980 Requested By: WALDEMAR JOHNSON Order Number: [id number] Reading MD: Toño Pritchard Measurements Intervals [place] Rate: 79 P: 65 ME: 150 QRS: -74 QRSD: 118 T: 24 QT: 371 QTc: 424 Interpretive Statements Sinus rhythm Left anterior fascicular block Compared to ECG 02/15/2022 20:13:54 No significant changes Electronically Signed On 06-12-2022 13:23:59 EDT by Toño Pritchard
== END 2022-06-11 07:40 | disposition left against medical advice (07) ==
LOC: ED 10:21
DX: R07.9 Chest pain, unspecified (principal); Z53.21 Procedure and treatment not carried out due to patient leaving prior to being seen by health care provider
CPT/HCPCS: 36415; 71046; 80053; 80061; 84484; 85025; 85610; 85730; 93005